=== PATIENT | female | born 1950 | race Caucasian/White ===

== ENCOUNTER 2017-12-13 06:22 | Day surgery (SDC) | payer MEDICARE ==
[2017-12-12 10:16] VITALS: BMI 46.7
[2017-12-13] MEDS ORDERED: Lidocaine 1% (PF) 30 ML VIAL ONE (06:48)
[2017-12-13 07:28] LABS: Anion Gap 13 mmol/L (10-20); BUN (Urea Nitrogen) 21 mg/dL (9.8-20.1); Calc. Creatinine Clearance 98 mL/min (70-130); Calcium 9.5 mg/dL (7.8-10.44); Carbon Dioxide 25 mmol/L (23-31); Cardiac Risk 5.6 (Less than 4.5); Chloride 104 mmol/L (98-107); Cholesterol 186 mg/dl (< 200 Desired); Estimated GFR-MDRD 50; Glucose 138 mg/dL (80-115); HDL Cholesterol 33 mg/dL (>60 Neg Risk); LDL Cholesterol, Calculated 101 mg/dL; Sodium 138 mmol/L (136-145); Triglycerides 258 mg/dL (Less than 150)
[2017-12-13 07:45] LABS: #Basophils 0.1 thou/uL (0.0-0.2); #Eosinphils 0.2 thou/uL (0.0-0.7); #Lymphocytes 2.4 thou/uL (1.20-3.40); #Monocytes 0.8 thou/uL (0.11-0.59); #Neutrophils 5.6 thou/uL (1.40-6.50); %Eosinophils 2.3 % (0.0-10.0); %Lymphocytes 26.9 % (21.0-51.0); %Monocytes 8.5 % (0.0-10.0); %Neutrophils 61.3 % (42.0-75.0); Hemoglobin 13.1 g/dL (12.0-16.0); Mean Corpuscular HGB CONC 31.8 g/dL (32.0-36.0); Mean Corpuscular Hemoglobin 31.3 pg (27.0-31.0); Mean Corpuscular Volume 98.5 fl (81.0-99.0); Mean Platelet Volume 7.8 fL (7.4-10.4); Platelet Count 186 thou/uL (130-400); RBC Distribution Width 13.8 % (11.5-14.5); Red Blood Cell (RBC) Count 4.19 mill/uL (4.20-5.40); White Blood Cell (WBC) Count 9.1 thou/uL (4.8-10.8)
[2017-12-13] MEDS ORDERED: Iopamidol 370 76% 100 ML VIAL ONE (07:45)
[2017-12-13 07:54] LABS: PTT 27.9 SEC (22.9-36.1); Prothrombin Time 13.1 SEC (12.0-14.7)
[2017-12-13] MEDS ORDERED: Nitroglycerin 100MG/250ML BOT 250 ML ONE (10:08)
[2017-12-13] MEDS ORDERED: Heparin 10,000 UNITS/1 ML VIAL ONE (10:08)
[2017-12-13] MEDS ORDERED: Verapamil 5 MG/2 ML VIAL ONE (10:08)
[2017-12-13] MEDS ORDERED: Fentanyl 250 MCG/5 ML VIAL ONE (10:13)
[2017-12-13] MEDS ORDERED: Midazolam HCl 2 mg/2 ml Vial ONE (10:13)
[2017-12-13] MEDS ORDERED: ALPRAZolam 0.25 MG TAB ONE (10:59)
[2017-12-13] MEDS ORDERED: Nitroglycerin 0.4 MG TAB (25 Tab Bottle) SL PRN (11:17)
[2017-12-13] MEDS ORDERED: traMADol HCl 50 MG TAB PO PRN (11:17)
[2017-12-13] MEDS ORDERED: Acetaminophen/Codeine 30-300mg Tablet PO PRN ×2 (11:17)
[2017-12-13] MEDS ORDERED: Sodium Chloride 0.9% 1,000 ML IV SCH (11:30)
== END 2017-12-13 15:28 | disposition home or self-care (01) ==
LOC: CCL 06:22
PROVIDERS: ATTEND Internal Medicine Cardiovascular Disease
PROC: 4A023N7 Measurement of Cardiac Sampling and Pressure, Left Heart, Percutaneous Approach (ICD-10-PCS; principal; 2017-12-13)
DX: I25.10 Atherosclerotic heart disease of native coronary artery without angina pectoris (principal); I42.0 Dilated cardiomyopathy; J44.9 Chronic obstructive pulmonary disease, unspecified; E11.9 Type 2 diabetes mellitus without complications; I10 Essential (primary) hypertension; N28.9 Disorder of kidney and ureter, unspecified; F41.9 Anxiety disorder, unspecified; E78.00 Pure hypercholesterolemia, unspecified; E66.9 Obesity, unspecified; Z68.42 Body mass index [BMI] 45.0-49.9, adult; Z88.0 Allergy status to penicillin; Z88.1 Allergy status to other antibiotic agents; Z88.8 Allergy status to other drugs, medicaments and biological substances; Z87.891 Personal history of nicotine dependence
CPT/HCPCS: 80048; 80061; 85025; 85610; 85730; 93005; 93458; C1769; 36415; 93010; 99152; 99153; J1644; J2001; J2250; J3010

== ENCOUNTER 2018-02-13 16:49 | Inpatient (IN) | payer MEDICARE ==
[~2018-02-13 16:49] MED LIST: ISOVUE-370 76%-LOCM 1 ML ONE
[2018-02-13 18:06] LABS: Troponin I Less than 0.010 ng/mL (< 0.028)
[2018-02-13 18:45] LABS: Base Excess-Venous 2.2 mmol/L (0 (+/- 2.5)); Bicarbonate (HCO3v) 28.9 mmol/L (1.0-85.0); Calcium, Ionized 1.21 mmol/L (1.12-1.32); Hemoglobin - Calc 12.6 g/dL (12.0-18.0); O2 Tension (PvO2) 51.8 mmHg (35.0-45.0); Potassium 3.8 mmol/L (3.4-4.7); T. Carbon Dioxide 30.5 mmol/L (1.0-85.0); pH (Venous) 7.344 (7.35-7.45); vO2 Saturation-calc 83.6 % (94-98)
--- NOTE | 2018-02-13 21:08 | CT ---
CT ANGIO OF CHEST PERFORMED WITH INTRAVENOUS CONTRAST ENHANCEMENT WITH 3D RECONSTRUCTIONS: 02/13/18 HISTORY: Shortness of breath. The initial images show suboptimal contrast bolus with a questionable area of embolus versus respirat ion involving the left lower lobe. For this reason, the patient was returned for repeat examination. There is subsegmental atelectatic changes in the lung bases. There is no signs of any pleural effusio ns or infiltrative process. There is no significant mediastinal or hilar adenopathy. The thoracic aor ta is normal in caliber. On the second sequence, there is good pulmonary artery opacification obtained and there is no CT evid ence for pulmonary embolus. The visualized liver parenchyma shows no focal findings. The gallbladder appears to have been removed . IMPRESSION: 1. Subsegmental atelectatic changes in the lung bases. 2. No CT evidence for pulmonary embolus. POS: YVAN
[2018-02-13 21:34] LABS: Troponin I Less than 0.010 ng/mL (< 0.028)
[2018-02-13] MEDS ORDERED: Acetaminophen 325 MG TAB PO PRN (22:25)
[2018-02-14 00:02] LABS: Troponin I Less than 0.010 ng/mL (< 0.028)
[2018-02-14] MEDS ORDERED: Senokot 8.6 MG TAB PO PRN (00:35)
[2018-02-14] MEDS ORDERED: Milk Of Magnesia 30 ML UDCUP PO PRN (00:35)
[2018-02-14] MEDS ORDERED: Calcium Carbonate 500 MG ChewTAB PO PRN (00:35)
[2018-02-14] MEDS ORDERED: Ondansetron ODT 4 MG TAB PO PRN (00:35)
[2018-02-14] MEDS ORDERED: Nitroglycerin 0.4 MG TAB (25 Tab Bottle) PO PRN (00:35)
[2018-02-14] MEDS ORDERED: Ondansetron HCl/PF 4 MG/2 ML Vial IVP PRN (00:35)
[2018-02-14] MEDS ORDERED: Potassium Chloride 20 MEQ TAB PO SCH (00:45)
--- NOTE | 2018-02-14 01:29 | HP ---
DATE OF ADMISSION: 02/13/2018 The patient was seen and examined on 02/13/2018. CHIEF COMPLAINT: Shortness of breath. The patient is a transfer from [facility]. HISTORY OF PRESENT ILLNESS: The patient is a 67-year-old female with COPD and chronic respiratory fa ilure, on home oxygen, presented to [facility] with shortness of breath. The patient wa s on her way to see Dr. Kapadia for a followup appointment. She underwent a cardiac catheterization i n December of this year that showed severe multivessel coronary artery disease. Medical therapy was rec ommended. The shortness of breath has been ongoing for the last 3 days. She also had some cough that was produ ctive of thick brownish phlegm. She also noticed some leg swelling. The shortness of breath was wor se on exertion and was associated with wheezing. No fever, chills, recent immobilization, travel, or sick contacts reported. In the emergency room, her initial vital signs showed temperature 98 with pulse rate of 91, blood pre ssure of 122/93 with O2 saturation 95% on 3 liter nasal cannula. Her chest x-ray was negative for in filtrate. CT angiogram of the chest was negative for pulmonary embolism. It showed some subsegmenta l atelectasis at the lung base. She received vancomycin, gentamicin, azithromycin, Solu-Medrol, and DuoNebs and was transferred to this facility for hospital admission. PAST MEDICAL HISTORY: 1. COPD. 2. Chronic respiratory failure on home oxygen. 3. Hypertension. 4. Diabetes mellitus type 2. 5. Severe coronary artery disease. 6. Anxiety and depression. 7. History of DVT in the past secondary to trauma and childbirth. 8. History of substance abuse in the past. 9. Infrarenal abdominal aortic aneurysm. 10. Hyperlipidemia. 11. Chronic kidney disease stage 3. PAST SURGICAL HISTORY: 1. Cardiac catheterization. 2. Bilateral tubal ligation. 3. Right breast lumpectomy. 4. Cholecystectomy. ALLERGIES: The patient is allergic to LEVAQUIN, CEFACLOR, TORADOL, and PENICILLIN. CURRENT HOME MEDICATIONS: The patient cannot recall all of her home medications. We will try to obt ain from the pharmacy or Dr. Little's office. SOCIAL HISTORY: The patient is a former smoker. She denies any alcohol or drug use. She lives [place]. She makes her own decision with the help of her family. FAMILY HISTORY: Positive for heart disease, hypertension, and diabetes in her siblings. REVIEW OF SYSTEMS: The following complete review of systems was negative, unless otherwise mentioned in the HPI or below: Constitutional: Weight loss or gain, ability to conduct usual activities. Sk in: Rash, itching. Eyes: Double vision, pain. ENT/Mouth: Nose bleeding, neck stiffness, pain, ten derness. Cardiovascular: Palpitations, dyspnea on exertion, orthopnea. Respiratory: Shortness of breath, wheezing, cough, hemoptysis, fever or night sweats. Gastrointestinal: Poor appetite, abdomi nal pain, heartburn, nausea, vomiting, constipation, or diarrhea. Genitourinary: Urgency, frequency , dysuria, nocturia. Musculoskeletal: Pain, swelling. Neurologic/Psychiatric: Anxiety, depression . Allergy/Immunologic: Skin rash, bleeding tendency. PHYSICAL EXAMINATION: VITAL SIGNS: As discussed above. GENERAL: A 67-year-old female in mild respiratory distress. Audible wheezing heard. HEENT: Head atraumatic, normocephalic. Sclerae are anicteric. Moist mucous membrane. No oral lesi on. NECK: Supple, no JVD appreciated. No carotid bruit. LUNGS: Showed scattered wheezing with diminished air entry at bases. There was scattered rhonchi. Lungs were symmetrical. There was some accessory muscle use. HEART: S1, S2 present. Regular rate and rhythm. No murmur, rubs, or gallops appreciated. ABDOMEN: Soft, obese, bowel sounds present. EXTREMITIES: 1 to 2+ edema in bilateral lower extremities. SKIN: Warm and dry. LYMPH NODES: No palpable lymph nodes in the neck. PERIPHERAL VASCULAR: Radial pulses palpable bilaterally. MUSCULOSKELETAL: No joint swelling or tenderness. LABORATORY FINDINGS: CBC showed WBC 11, hemoglobin 12.5. D-dimer was 1.17. VBG showed pH 7.34 with pCO2 of 53, pO2 of 51.8. Chemistries showed sodium 142, potassium 3.4, chloride 104, bicarbonate 26 , BUN 22, creatinine 1.14. Lactic acid was normal. LFTs in normal range. BNP was 76. Troponins we re negative. EKG by my review showed sinus rhythm with nonspecific ST-T wave changes. Chest x-ray a nd CT angiogram of the chest by my review as discussed above. IMPRESSION: 1. Acute hypoxic and hypercapnic respiratory failure secondary to chronic obstructive pulmonary dise ase exacerbation. Ejection fraction was normal and a cardiac catheterization in December of this year. A chest x-ray and CT angiogram of the chest does not show pulmonary vascular congestion. We will co ntinue oxygen, nebulizer treatment, empiric antibiotics with steroids. We will monitor closely. 2. Hypertension. We will resume her home medications once confirmed. 3. Anxiety and depression. We will resume home medications once confirmed. 4. Gastroesophageal reflux disease. We will continue Pepcid. 5. Hyperlipidemia. We will continue statins. 6. Diabetes mellitus type 2. We will start her on sliding scale. 7. Chronic kidney disease stage 3. We will avoid nephrotoxic agent. 8. Hypokalemia. We will replace. 9. Former smoker. 10. Severe coronary artery disease. Her troponins have been negative. 11. Infrarenal abdominal aortic aneurysm. Primary care physician advised to follow. 12. Plan of care was discussed with the patient in detail, she stated understanding. 13. Deep venous thrombosis prophylaxis with Lovenox.
[2018-02-14] MEDS: Azithromycin 500 MG in Sodium Chloride 0.9% 250 ML 250 ML IVPB SCH (02:19)
[2018-02-14 03:03] VITALS: BMI 46.7
[2018-02-14 05:02] LABS: Anion Gap 9 mmol/L (10-20); BUN (Urea Nitrogen) 22 mg/dL (9.8-20.1); Calc. Creatinine Clearance 99 mL/min (70-130); Calcium 9.3 mg/dL (7.8-10.44); Carbon Dioxide 27 mmol/L (23-31); Chloride 105 mmol/L (98-107); Estimated GFR-MDRD 51; Glucose 233 mg/dL (80-115); Potassium 4.1 mmol/L (3.5-5.1); Sodium 137 mmol/L (136-145)
[2018-02-14] MEDS: Mometasone/Formoterol 120 PUFF INHALER INH SCH ×2 (06:43→18:14)
--- NOTE | 2018-02-14 07:30 | PDOC.PN ---
- Subjective Encounter Start Date: 02/14/18 Encounter Start Time: 07:28 Subjective: GUTIERREZ gone, sob improved - Objective Resuscitation Status: Resuscitation Status FULL:Full Resuscitation MAR Reviewed: Yes Vital Signs & Weight: Vital Signs (12 hours) Temp Pulse Resp BP Pulse Ox 02/14/18 06:41 82 20 94 L 02/14/18 04:00 98.5 F 84 18 143/95 H 86 L 02/14/18 03:19 97.8 F 88 24 H 93 L 02/14/18 01:03 95 02/14/18 00:55 88 24 H 95 Result Diagrams: 02/14/18 04:15 Additional Labs: Accuchecks 02/14/18 06:00 POC Glucose 214 H Phys Exam - Physical Examination Neck: no JVD good BS with rhonchi, nonfocal Cardiovascular: RRR, no significant murmur Gastrointestinal: non-tender, positive bowel sounds Musculoskeletal: edema present Dx/Plan (1) COPD exacerbation Code(s): J44.1 - CHRONIC OBSTRUCTIVE PULMONARY DISEASE W (ACUTE) EXACERBATION Status: Acute (2) DM type 2 causing CKD stage 3 Code(s): E11.22 - TYPE 2 DIABETES MELLITUS W DIABETIC CHRONIC KIDNEY DISEASE; N18.3 - CHRONIC KIDNEY DISEASE, STAGE 3 (MODERATE) Status: Chronic Qualifiers: Diabetes mellitus adjunct english instructor insulin use: without adjunct english instructor use Qualified Code(s): E11.22 - Type 2 diabetes mellitus with diabetic chronic kidney disease ; N18.3 - Chronic kidney disease, stage 3 (moderate); N18.3 - Chronic kidney disease, stage 3 (moderate) (3) CAD (coronary artery disease) Code(s): I25.10 - ATHSCL HEART DISEASE OF [place] CORONARY ARTERY W/O ANG PCTRS Status: Chronic Qualifiers: Coronary Disease-Associated Artery/Lesion type: [place] artery [place] vs. transplanted heart: [place] heart Associated angina: without angina Qualified Code(s): I25.10 - Atherosclerotic heart disease of [place] coronary artery without angina pectoris (4) Acute on chronic respiratory failure with hypoxia Code(s): J96.21 - ACUTE AND CHRONIC RESPIRATORY FAILURE WITH HYPOXIA Status: Acute (5) Dyslipidemia Code(s): E78.5 - HYPERLIPIDEMIA, UNSPECIFIED Status: Chronic (6) Hypertension Code(s): I10 - ESSENTIAL (PRIMARY) HYPERTENSION Status: Chronic Qualifiers: Hypertension type: essential hypertension Qualified Code(s): I10 - Essential (primary) hypertension - Plan cont nebs Q4h and Q2h prn -: O2 to keep O2 sat > 90 -: cont iv medrol, antibx -: resume coreg, lisinopril, lasix , etc -: cont accu/ss * .
[2018-02-14] MEDS: DULoxetine 60 MG CAP PO SCH ×2 (08:22→20:12)
[2018-02-14] MEDS: Potassium Chloride 20 MEQ TAB PO SCH ×2 (08:23→18:26)
[2018-02-14] MEDS: Docusate 100 MG CAP PO SCH ×2 (08:23→20:12)
[2018-02-14] MEDS: Lisinopril 10 MG TAB PO SCH (08:23)
[2018-02-14] MEDS: Aspirin 81 mg Enteric Coated Tablet PO SCH (08:23)
[2018-02-14] MEDS: Famotidine 20 MG TAB PO SCH ×2 (08:23→20:07)
[2018-02-14] MEDS: Furosemide 40 MG TAB PO SCH ×2 (08:23→14:54)
[2018-02-14] MEDS: traMADol HCl 50 MG TAB PO SCH ×3 (08:24→21:07)
[2018-02-14] MEDS: Carvedilol 6.25 MG TAB PO SCH ×2 (08:24→20:08)
[2018-02-14] MEDS: Enoxaparin Sodium 40 MG/0.4 ML SYRINGE SC SCH (08:25)
[2018-02-14] MEDS ORDERED: Spiriva 18 MCG CAP (Box of 5 Caps) INH SCH (09:00)
[2018-02-14] MEDS ORDERED: Prevnar 13-Val Conj/PF 0.5 ML SYRINGE IM ONE (09:00)
[2018-02-14] MEDS ORDERED: Aspirin 81 mg Enteric Coated Tablet PO SCH (09:00)
[2018-02-14] MEDS: Atorvastatin Calcium 20 MG TAB PO SCH (20:12)
[2018-02-14] MEDS: Montelukast Sodium 10 mg Tablet PO SCH (20:12)
[2018-02-14] MEDS ORDERED: clonazePAM 0.5 MG TAB PO SCH (20:45)
[2018-02-14] MEDS ORDERED: Simvastatin 40 MG TAB PO SCH (21:00)
[2018-02-15] MEDS: Azithromycin 500 MG in Sodium Chloride 0.9% 250 ML 250 ML IVPB SCH (00:38)
[2018-02-15 05:05] LABS: #Lymphocytes 1.1 thou/uL (1.20-3.40); #Monocytes 0.4 thou/uL (0.11-0.59); #Neutrophils 9.7 thou/uL (1.40-6.50); %Basophils 0.2 % (0.0-1.0); %Lymphocytes 9.4 % (21.0-51.0); %Monocytes 3.6 % (0.0-10.0); %Neutrophils 86.7 % (42.0-75.0); Hemoglobin 11.1 g/dL (12.0-16.0); Mean Corpuscular Hemoglobin 32.6 pg (27.0-31.0); Mean Corpuscular Volume 98.7 fl (81.0-99.0); Mean Platelet Volume 7.6 fL (7.4-10.4); Platelet Count 231 thou/uL (130-400); RBC Distribution Width 11.7 % (11.5-14.5); Red Blood Cell (RBC) Count 3.42 mill/uL (4.20-5.40); White Blood Cell (WBC) Count 11.2 thou/uL (4.8-10.8)
[2018-02-15 05:24] LABS: Anion Gap 9 mmol/L (10-20); BUN (Urea Nitrogen) 24 mg/dL (9.8-20.1); Calc. Creatinine Clearance 100 mL/min (70-130); Calcium 9.3 mg/dL (7.8-10.44); Carbon Dioxide 33 mmol/L (23-31); Chloride 101 mmol/L (98-107); Estimated GFR-MDRD 52; Glucose 160 mg/dL (80-115); Potassium 4.4 mmol/L (3.5-5.1); Sodium 139 mmol/L (136-145)
[2018-02-15] MEDS: Mometasone/Formoterol 120 PUFF INHALER INH SCH (07:10)
[2018-02-15] MEDS: traMADol HCl 50 MG TAB PO SCH ×3 (08:27→22:05)
[2018-02-15] MEDS: Famotidine 20 MG TAB PO SCH ×2 (08:28→22:05)
[2018-02-15] MEDS: Lisinopril 10 MG TAB PO SCH (08:28)
[2018-02-15] MEDS: Docusate 100 MG CAP PO SCH ×2 (08:28→22:05)
[2018-02-15] MEDS: DULoxetine 60 MG CAP PO SCH ×2 (08:28→22:04)
[2018-02-15] MEDS: Carvedilol 6.25 MG TAB PO SCH ×2 (08:28→22:04)
[2018-02-15] MEDS: Furosemide 40 MG TAB PO SCH ×2 (08:28→15:08)
[2018-02-15] MEDS: Potassium Chloride 20 MEQ TAB PO SCH (08:29)
[2018-02-15] MEDS: Aspirin 81 mg Enteric Coated Tablet PO SCH (08:29)
[2018-02-15] MEDS: Enoxaparin Sodium 40 MG/0.4 ML SYRINGE SC SCH (08:29)
--- NOTE | 2018-02-15 12:41 | PDOC.PN ---
- Subjective Encounter Start Date: 02/15/18 Encounter Start Time: 12:39 Subjective: much less sob, mild cough, no fever - Objective Resuscitation Status: Resuscitation Status FULL:Full Resuscitation MAR Reviewed: Yes Vital Signs & Weight: Vital Signs (12 hours) Temp Pulse Resp BP BP Pulse Ox 02/15/18 12:00 97.7 F 67 18 155/90 H 98 02/15/18 09:40 89 22 H 94 L 02/15/18 08:59 97.4 F L 62 16 92 L 02/15/18 08:28 152/72 H 02/15/18 08:00 97.4 F L 62 16 152/72 H 92 L 02/15/18 07:58 97.4 F L 62 16 152/72 H 92 L 02/15/18 07:10 67 22 H 94 L 02/15/18 07:08 67 22 H 94 L 02/15/18 03:36 98.1 F 63 18 147/78 H 95 I&O: 02/14/18 02/15/18 02/16/18 06:59 06:59 06:59 Intake Total 240 2250 Output Total 900 400 Balance 240 1350 -400 Result Diagrams: 02/15/18 04:26 02/15/18 04:26 Additional Labs: Accuchecks 02/15/18 02/15/18 02/14/18 10:59 05:21 21:11 POC Glucose 206 H 161 H 203 H 02/14/18 17:03 POC Glucose 181 H Phys Exam - Physical Examination fair BS, few wheezes, rhonchi Cardiovascular: RRR, no significant murmur Gastrointestinal: soft, non-tender, positive bowel sounds Musculoskeletal: edema present Dx/Plan (1) COPD exacerbation Code(s): J44.1 - CHRONIC OBSTRUCTIVE PULMONARY DISEASE W (ACUTE) EXACERBATION Status: Acute (2) DM type 2 causing CKD stage 3 Code(s): E11.22 - TYPE 2 DIABETES MELLITUS W DIABETIC CHRONIC KIDNEY DISEASE; N18.3 - CHRONIC KIDNEY DISEASE, STAGE 3 (MODERATE) Status: Chronic Qualifiers: Diabetes mellitus watermelon harvesting supervisor insulin use: without watermelon harvesting supervisor use Qualified Code(s): E11.22 - Type 2 diabetes mellitus with diabetic chronic kidney disease ; N18.3 - Chronic kidney disease, stage 3 (moderate); N18.3 - Chronic kidney disease, stage 3 (moderate) (3) CAD (coronary artery disease) Code(s): I25.10 - ATHSCL HEART DISEASE OF [place] CORONARY ARTERY W/O ANG PCTRS Status: Chronic Qualifiers: Coronary Disease-Associated Artery/Lesion type: [place] artery [place] vs. transplanted heart: [place] heart Associated angina: without angina Qualified Code(s): I25.10 - Atherosclerotic heart disease of [place] coronary artery without angina pectoris (4) Acute on chronic respiratory failure with hypoxia Code(s): J96.21 - ACUTE AND CHRONIC RESPIRATORY FAILURE WITH HYPOXIA Status: Acute (5) Dyslipidemia Code(s): E78.5 - HYPERLIPIDEMIA, UNSPECIFIED Status: Chronic (6) Hypertension Code(s): I10 - ESSENTIAL (PRIMARY) HYPERTENSION Status: Chronic Qualifiers: Hypertension type: essential hypertension Qualified Code(s): I10 - Essential (primary) hypertension - Plan cont nebs, antibx -: taper solu-medrol to 20 q8h -: 1/2 blood C&S gm pos cocci- suspect contaminent * .
[2018-02-15] MEDS: Atorvastatin Calcium 20 MG TAB PO SCH (22:05)
[2018-02-15] MEDS: Montelukast Sodium 10 mg Tablet PO SCH (22:06)
[2018-02-16] MEDS: Azithromycin 500 MG in Sodium Chloride 0.9% 250 ML 250 ML IVPB SCH (01:09)
[2018-02-16 05:24] LABS: Anion Gap 11 mmol/L (10-20); BUN (Urea Nitrogen) 28 mg/dL (9.8-20.1); Calc. Creatinine Clearance 78 mL/min (70-130); Calcium 9.1 mg/dL (7.8-10.44); Carbon Dioxide 28 mmol/L (23-31); Chloride 102 mmol/L (98-107); Estimated GFR-MDRD 38; Glucose 161 mg/dL (80-115); Potassium 4.4 mmol/L (3.5-5.1); Sodium 137 mmol/L (136-145)
[2018-02-16 08:32] VITALS: BP 156/88; TEMP 98.9
[2018-02-16] MEDS: Famotidine 20 MG TAB PO SCH (08:34)
[2018-02-16] MEDS: Furosemide 40 MG TAB PO SCH (08:34)
[2018-02-16] MEDS: traMADol HCl 50 MG TAB PO SCH (08:34)
[2018-02-16] MEDS: Docusate 100 MG CAP PO SCH (08:35)
[2018-02-16] MEDS: Lisinopril 10 MG TAB PO SCH (08:35)
[2018-02-16] MEDS: Enoxaparin Sodium 40 MG/0.4 ML SYRINGE SC SCH (08:35)
[2018-02-16] MEDS: Aspirin 81 mg Enteric Coated Tablet PO SCH (08:35)
[2018-02-16] MEDS: DULoxetine 60 MG CAP PO SCH (08:35)
[2018-02-16] MEDS: Carvedilol 6.25 MG TAB PO SCH (08:35)
--- NOTE | 2018-02-16 09:00 | DIS ---
DATE OF ADMISSION: 02/13/2018 DATE OF DISCHARGE: 02/16/2018 PRIMARY CARE PROVIDER: Nancie Little D.O. DISCHARGE DISPOSITION: Home. FINAL DIAGNOSES: Acute exacerbation of chronic obstructive pulmonary disease, essential hypertension , acute on chronic respiratory failure with hypoxemia, chronic kidney disease stage 3, dyslipidemia, hypertension, coronary artery disease. DISCHARGE MEDICATIONS: New, Zithromax 10 mg p.o. daily x10 days, prednisone 20 mg p.o. t.i.d. until seen by primary care doctor, Flexeril 10 mg p.o. q.8 hours p.r.n., tramadol 50 mg p.o. t.i.d. p.r.n., Coreg 6.25 mg p.o. b.i.d., Cymbalta 60 mg b.i.d., aspirin 81 mg a day, Lisinopril 10 mg a day, DuoNe b 3 mL q.i.d., Lasix 40 mg a day as directed, Klonopin 0.5 mg b.i.d., Spiriva 18 mcg inhaled daily, Z ocor 40 mg a day. ALLERGIES: LEVAQUIN, CECLOR, KETOROLAC, PENICILLINS. CODE STATUS: FULL. PENDING AT THE TIME OF DISCHARGE: Nothing. HOSPITAL COURSE: The patient referred to [facility] for acute exacerbation of COPD. The patient on chronic respiratory failure on home O2. She went to the hospital with acute shortness of breath. Chest x-ray and CT scan were unremarkable. White count was mildly elevated at 11,000, h emoglobin 12.5. Chemistries were consistent with chronic kidney disease stage 3. She had wheezes. She was treated aggressively with IV steroids, nebs, IV antibiotics. She has improved dramatically. She is being discharged home on oral prednisone, oral Zithromax. Her blood sugars have been control led in the 100-200 range. Her final chemistry shows sodium 137, potassium 4.4, BUN 28, creatinine 1. 37. At the time of discharge, the patient's vital signs are excellent. Her chest is clear to physic al exam. Her heart has a regular rate and rhythm. We have discussed her status this morning, she is comfortable with going home. We have discussed follow up with Dr. Little late next week. Her pred nisone will need to be tapered by Dr. Little.
== END 2018-02-16 10:22 | disposition home or self-care (01) | DRG 189 ==
LOC: ERS 16:49 → 2SE 20:19
PROVIDERS: ADMIT Internal Medicine; ATTEND Internal Medicine
DX: J96.02 Acute respiratory failure with hypercapnia (principal); J44.1 Chronic obstructive pulmonary disease with (acute) exacerbation; Z68.42 Body mass index [BMI] 45.0-49.9, adult; E66.9 Obesity, unspecified; Z99.81 Dependence on supplemental oxygen; E11.22 Type 2 diabetes mellitus with diabetic chronic kidney disease; I12.9 Hypertensive chronic kidney disease with stage 1 through stage 4 chronic kidney disease, or unspecified chronic kidney disease; I25.10 Atherosclerotic heart disease of native coronary artery without angina pectoris; F32.9 Major depressive disorder, single episode, unspecified; F41.9 Anxiety disorder, unspecified; Z86.718 Personal history of other venous thrombosis and embolism; I71.4 Abdominal aortic aneurysm, without rupture; E78.5 Hyperlipidemia, unspecified; N18.3 Chronic kidney disease, stage 3 (moderate); Z88.1 Allergy status to other antibiotic agents; Z88.8 Allergy status to other drugs, medicaments and biological substances; Z88.0 Allergy status to penicillin; Z79.899 Other long term (current) drug therapy; Z87.891 Personal history of nicotine dependence; K21.9 Gastro-esophageal reflux disease without esophagitis; E87.6 Hypokalemia
CPT/HCPCS: 36415; 36416; 71275; 80048; 82330; 82803; 85025; 90471; 90670; 93005; 94640; 94760; 96360; 99406; G0009; J0456; J1650; J2920; J7050; J7620

== ENCOUNTER 2018-02-22 15:08 | Inpatient (IN) | payer MEDICARE ==
[2018-02-22 15:59] LABS: Actual Bicarbonate (HCO3a) 29.2 mEq/L (22-26); Base Excess (BEa) 4.2 mEq/L (0 (+/-) 2.5); CO2 Tension 45.3 mmHg (35.0-45.0); Hematocrit-ABG 41.5 % (36.0-47.0); O2 Tension (PaO2) 81.4 mmHg (80.0-100.0); pH, Arterial 7.43 (7.35-7.45)
[2018-02-22 16:00] LABS: ALV-art Gradient 88.535 (0-20); Calcium, Ionized 1.2 mmol/L (1.12-1.30); Puncture Site RR
[2018-02-22 16:08] LABS: #Lymphocytes 1.5 thou/uL (1.20-3.40); #Monocytes 0.4 thou/uL (0.11-0.59); %Basophils 0.2 % (0.0-1.0); %Eosinophils 0.1 % (0.0-10.0); %Lymphocytes 9.6 % (21.0-51.0); %Monocytes 2.2 % (0.0-10.0); %Neutrophils 87.9 % (42.0-75.0); Hemoglobin 13.6 g/dL (12.0-16.0); Mean Corpuscular HGB CONC 32.3 g/dL (32.0-36.0); Mean Corpuscular Hemoglobin 32.3 pg (27.0-31.0); Mean Platelet Volume 7.6 fL (7.4-10.4); Platelet Count 282 thou/uL (130-400); RBC Distribution Width 12.1 % (11.5-14.5); Red Blood Cell (RBC) Count 4.22 mill/uL (4.20-5.40)
[2018-02-22 16:14] LABS: INR-International Normal Ratio 1.1; PTT 25.6 SEC (22.9-36.1); Prothrombin Time 14.3 SEC (12.0-14.7)
[2018-02-22 16:16] LABS: D-Dimer Test 0.65 *mcg/mL (0.27-0.43)
[2018-02-22 16:30] LABS: ALT (SGPT) 16 U/L (8-55); AST (SGOT) 12 U/L (5-34); Albumin 3.7 g/dL (3.4-4.8); Alkaline Phosphatase 57 U/L (40-150); Anion Gap 15 mmol/L (10-20); BUN (Urea Nitrogen) 23 mg/dL (9.8-20.1); Bilirubin, Total 0.5 mg/dL (0.2-1.2); CK (CPK) 105 U/L (29-168); Calc. Creatinine Clearance 0 mL/min (70-130); Calcium 8.8 mg/dL (7.8-10.44); Carbon Dioxide 25 mmol/L (23-31); Chloride 102 mmol/L (98-107); Estimated GFR-MDRD 42; Globulin 2.5 g/dL (2.4-3.5); Glucose 244 mg/dL (80-115); Magnesium 2.2 mg/dL (1.6-2.6); Potassium 3.9 mmol/L (3.5-5.1); Protein, Total 6.2 g/dL (6.0-8.3); Sodium 138 mmol/L (136-145)
[2018-02-22 16:35] LABS: CKMB 2.6 ng/mL (0-6.6); Troponin I Less than 0.010 ng/mL (< 0.028)
--- NOTE | 2018-02-22 16:35 | RAD ---
SINGLE VIEW OF THE CHEST: 02/22/18 COMPARISON: 10/09/17 HISTORY: Shortness of breath and chest pain. FINDINGS: Single view of the chest shows an enlarged but stable cardiomediastinal silhouette. There is no evide nce of consolidation, mass or pleural effusion. The bones are unremarkable. IMPRESSION: Cardiomegaly without evidence of acute cardiopulmonary disease. POS: [facility]
--- NOTE | 2018-02-22 18:49 | CT ---
CT BRAIN: 02/22/18 HISTORY: Altered mental status. Noncontrast enhanced CT images of the brain is obtained. CT brain demonstrates an area of hypodensity in the left frontal lobe with some small areas of calcif ications. This is compatible with likely area of old stroke. No evidence of acute intracranial masses , hemorrhages, or strokes seen. IMPRESSION: Old left frontal lobe area of stroke. No acute intracranial abnormality seen. POS: YAVN
--- NOTE | 2018-02-22 19:18 | CT ---
CT ANGIO OF CHEST PERFORMED WITH INTRAVENOUS CONTRAST ENHANCEMENT WITH 3D RECONSTRUCTIONS: 02/22/18 HISTORY: Shortness of breath. COMPARISON: A 02/13/18 study. There is some linear interstitial change in the lung bases consistent with some atelectatic type wilson ge. No infiltrative process seen. There is evidence of some air trapping with a slightly mosaic lung pattern. Thoracic aorta is normal in caliber. There is fairly pulmonary artery opacification, peripheral emboli are not excluded, but no emboli are visualized. No significant mediastinal or hilar adenopathy. The visualized liver parenchyma is normal. Gallbladde r has been removed. IMPRESSION: No CT evidence for pulmonary embolus. POS: NIKI
[2018-02-22 19:38] LABS: Bilirubin Negative (Negative); Blood, Urine Negative (Negative); Clarity CLEAR (Clear); Glucose, Urine (Dipstick) Negative (Negative); Leukocyte Negative (Negative); Nitrite Negative (Negative); Protein, Urine (Dipstick) Negative (Neg-Trace); Specific Gravity, Urine 1.025 (1.002-1.036); Urobilinogen 0.2 mg/dL (0.2-1.0)
[2018-02-22 19:57] LABS: Lactic Acid 1.5 mmol/L (0.5-2.2)
[2018-02-22 21:31] LABS: Troponin I Less than 0.010 ng/mL (< 0.028)
[2018-02-22] MEDS ORDERED: Prevnar 13-Val Conj/PF 0.5 ML SYRINGE IM ONE (22:15)
[2018-02-22 22:32] VITALS: BMI 47.6
[2018-02-22] MEDS ORDERED: Ondansetron ODT 4 MG TAB SL PRN (22:40)
[2018-02-22] MEDS ORDERED: Ondansetron HCl/PF 4 MG/2 ML Vial IVP PRN (22:40)
[2018-02-23 00:33] LABS: Troponin I 0.017 ng/mL (< 0.028)
[2018-02-23] MEDS ORDERED: Ondansetron HCl/PF 4 MG/2 ML Vial IVP PRN (03:46)
[2018-02-23] MEDS ORDERED: HumaLOG 300 UNITS/3 ML VIAL SC PRN (03:46)
[2018-02-23] MEDS ORDERED: hydrALAZINE 20 MG/ML VIAL SLOW IVP PRN (03:46)
[2018-02-23] MEDS ORDERED: Dextrose 5% in Water 1,000 ML IV PRN (03:46)
[2018-02-23] MEDS ORDERED: Nitroglycerin 0.4 MG TAB (25 Tab Bottle) SL PRN (03:46)
[2018-02-23] MEDS ORDERED: Dextrose 50% Abboject 50 ML SYRINGE SLOW IVP PRN (03:46)
[2018-02-23] MEDS ORDERED: Ondansetron ODT 4 MG TAB PO PRN (03:46)
[2018-02-23] MEDS: Ipratropium Bromide 2.5 ml Neb NEB SCH ×3 (06:46→19:15)
--- NOTE | 2018-02-23 07:09 | HP ---
DATE OF ADMISSION: 02/23/2018 PRIMARY CARE PROVIDER: Dr. Nancie Little. CHIEF COMPLAINT: Shortness of breath and altered mental status. HISTORY OF PRESENT ILLNESS: This is a 67-year-old female who apparently was presenting to her primary care provider's office when she had difficulty with shortness of breath as well as diffic ulty with speech and coming up with the right phrases and sentences. The history is somewhat convolu priscila as patient is a poor historian and ER reports are disjointed. The history is obtained after revi ew of electronic medical records discussions with the ER attending as well as interviewing the patien t. The patient was apparently referred to [facility] after concern for possib le TIA or stroke-like symptoms with difficulty with speech and some confusion. The patient underwent CT imaging of the brain on 02/22/2018 showing old left frontal lobe area of infarct. The patient al so underwent CT angiogram of the chest showing no evidence for pulmonary embolus. The patient was no tably admitted to [facility] from 02/13/2018-02/16/2018 for exacerbation of chronic obstruct brent pulmonary disease. The patient received aggressive pulmonary supportive measures in addition to Zithromax 500 mg daily. The patient was discharged home on a regular oxygen supplementation and appa rently had been doing well. In the emergency room, patient underwent general evaluation including ch est imaging showing cardiomegaly without an acute process. The patient received aspirin 324 mg in ad dition to [place] 10 mg x1 dose and was referred to the stroke unit for evaluation. PAST MEDICAL HISTORY: 1. Acute on chronic hypoxemic respiratory failure. 2. Chronic obstructive pulmonary disease with chronic oxygen supplementation at 2-3 liters per minut e by nasal cannula. 3. Diabetes mellitus type 2. 4. Hypertension. 5. Question of congestive heart failure. PAST SURGICAL HISTORY: 1. Severe coronary artery disease, nonoperable. 2. Anxiety/depression. 3. History of DVT secondary to trauma. 4. History of substance abuse. 5. Infrarenal abdominal aortic aneurysm. 6. Hyperlipidemia. 7. Chronic kidney disease stage 3. PAST SURGICAL HISTORY: 1. Status post cardiac catheterization. 2. Status post bilateral tubal ligation. 3. Status post right breast lumpectomy. 4. Status post cholecystectomy. CURRENT MEDICATIONS: 1. Enteric coated aspirin 81 mg p.o. daily. 2. Zithromax 500 mg p.o. daily. 3. Coreg 6.25 mg p.o. b.i.d. 4. Klonopin 0.5 mg p.o. b.i.d. 5. Flexeril 10 mg p.o. t.i.d. p.r.n. 6. Cymbalta 60 mg p.o. b.i.d. 7. Pepcid 20 mg p.o. at bedtime. 8. Breo Ellipta 1 puff inhaled daily. 9. Guaifenesin 1200 mg p.o. q.12 hours. 10. Hydrochlorothiazide 25 mg p.o. daily. 11. DuoNebs 3 mL nebulized q.i.d. p.r.n. 12. Lisinopril 10 mg p.o. daily. 13. Claritin 10 mg p.o. daily. 14. Singulair 10 mg p.o. at bedtime. 15. Nitroglycerin 0.4 mg sublingually at bedtime. 16. Nitroglycerin 0.4 mg sublingually every 5 minutes p.r.n. 17. Prednisone 20 mg p.o. t.i.d. 18. Simvastatin 40 mg p.o. at bedtime. 19. Spiriva HandiHaler 18 mcg inhaled daily. 20. Tramadol 50 mg p.o. t.i.d. ALLERGIES: LEVAQUIN, CEFACLOR, KETOROLAC, PENICILLIN. FAMILY HISTORY: Positive for coronary artery disease, hypertension, and diabetes. SOCIAL HISTORY: The patient formerly used tobacco products, none currently. Lives independently. N o current alcohol, tobacco or illicit drug use. REVIEW OF SYSTEMS: Unobtainable as patient is a poor historian with altered mental status. PHYSICAL EXAMINATION: VITAL SIGNS: On admission, blood pressure 166/121, pulse 64, respiratory rate 18, temperature 97.8 d egrees Fahrenheit, O2 saturation 97% on 3 liters per minute by nasal cannula. GENERAL APPEARANCE: This is a 67-year-old female, lethargic, opens eyes and answers questi ons intermittently. HEENT: Pupils are equal, round, and reactive to light and accommodation. Extraocular muscles are in tact. No scleral icterus, no conjunctival injection. Nares patent. OP is clear. Teeth in poor rep air. NECK: Supple, no cervical adenopathy, no thyromegaly, no carotid bruits, no JVD appreciated. Cervic al spine with full active and passive range of motion. No meningeal signs appreciated. CHEST: Diminished breath sounds in the bases bilaterally. Occasional expiratory wheeze. CARDIOVASCULAR: S1 and S2 with distant heart sounds. No murmur, rub or gallop appreciated. ABDOMEN: Obese, soft, nontender and nondistended. Bowel sounds are positive in all four quadrants. No palpable mass. No rebound or guarding noted. EXTREMITIES: Warm and dry with fair turgor. No clubbing, cyanosis or asymmetric edema appreciated. Pulses palpable distally at the dorsalis pedis, posterior tibial, and popliteal arteries bilaterally . Capillary refill less than 2 seconds. NEUROLOGIC: Alert and oriented x1. Answers questions briefly. Rambling thoughts and speech. Moves all extremities. Not observed ambulatory during this exam. PERTINENT LABORATORY DATA AND X-RAY FINDINGS: Sodium 138, potassium 3.9, chloride 102, CO2 of 25, BU N 23, creatinine 1.28, estimated GFR 42, lactic acid level 2.7, calcium 8.8. LFTs within normal limi ts. BNP 154, TSH 0.12, free T4 0.79. Troponin I negative x1. CBC showed a white blood cell count o f 16, hemoglobin 13.6, hematocrit 42, MCV 100, platelet count 282 with 88% neutrophils. PT 14.3, INR 1.1, PTT 25.6. D-dimer 0.65. Portable chest x-ray dated 02/22/2018 showed cardiomegaly without an acute process. CT of the brain without contrast dated 02/22/2018 showed old left frontal lobe infarc t. No acute process identified. CT angiogram of the chest dated 02/22/[address] evidence fo r pulmonary embolus. EKG dated 02/22/2018 by my interpretation shows sinus mechanism with heart rate in the 80s. Normal R-wave progression noted in the precordial leads. Normal axis. No acute ST-T w ave changes appreciated. ASSESSMENT AND PLAN: 1. Transient ischemic attack. We will continue general stroke protocol. 2. Aspirin 81 mg p.o. daily and Lipitor 40 mg p.o. at bedtime. Check carotid Doppler study and 2D t ransthoracic echocardiogram. Check MRI of the brain to further define intracranial anatomy given CT evidence of left frontal infarct. 3. Acute metabolic encephalopathy. Appears multifactorial given patient's presentation. Continue s ymptomatic and supportive management. 5. Acute kidney injury on chronic kidney disease stage 3. Continue supportive measures. Avoid neph rotoxic agents and contrast media. Repeat creatinine in the a.m. 6. Chronic hypoxemic respiratory failure on chronic oxygen supplementation 2-3 liters per minute by nasal cannula. Continue general pulmonary supportive measures. The patient appears at baseline oxyg en requirement. 7. Diabetes mellitus type 2. Insulin sliding scale for reflexive coverage. ADA diet. 8. Prophylaxis. Sequential compression devices while in bed. Pepcid 20 mg p.o. b.i.d. Continue [facility] stroke protocol including speech, physical, and occupational therapy. 9. Code status is FULL. Surrogate medical decision maker is patient's daughter, Estelita Sood.
[2018-02-23] MEDS: predniSONE 20 MG TAB PO SCH ×2 (08:52→14:52)
[2018-02-23] MEDS: DULoxetine 60 MG CAP PO SCH ×2 (08:52→20:45)
[2018-02-23] MEDS: Aspirin 81 mg Enteric Coated Tablet PO SCH (08:52)
[2018-02-23] MEDS: Famotidine 20 MG TAB PO SCH ×2 (08:52→20:44)
[2018-02-23] MEDS: traMADol HCl 50 MG TAB PO SCH ×3 (08:52→20:45)
[2018-02-23] MEDS: Loratadine 10 MG TAB PO SCH (08:52)
[2018-02-23] MEDS: guaiFENesin ER 600 MG TAB PO SCH ×2 (08:52→20:45)
[2018-02-23] MEDS: Lisinopril 10 MG TAB PO SCH (08:53)
[2018-02-23] MEDS: Hydrochlorothiazide 25 MG TAB PO SCH (08:53)
[2018-02-23] MEDS ORDERED: Lorazepam 0.5 MG TAB PO SCH (09:00)
[2018-02-23] MEDS ORDERED: Carvedilol 6.25 MG TAB PO SCH ×2 (09:00→16:00)
[2018-02-23] MEDS ORDERED: clonazePAM 0.5 MG TAB PO SCH (09:00)
[2018-02-23] MEDS ORDERED: Azithromycin 250 MG TAB PO SCH (09:00)
[2018-02-23] MEDS ORDERED: Spiriva 18 MCG CAP (Box of 5 Caps) INH SCH (09:00)
[2018-02-23] MEDS: Folic Acid 1 MG TAB PO SCH (09:02)
[2018-02-23] MEDS: Cyanocobalamin (Vitamin B-12) 1,000 MCG TAB PO SCH (09:02)
[2018-02-23] MEDS: Multivit, Therapeutic 1 TAB PO SCH (09:02)
[2018-02-23] MEDS: Lactinex Tablet PO SCH (09:27)
--- NOTE | 2018-02-23 10:41 | ULT ---
BILATERAL CAROTID DUPLEX ULTRASOUND: Date: 02/23/18 HISTORY: TIA and altered mental status. FINDINGS: Real-time color Doppler evaluation of the right and left carotid systems was performed. This showed p laque formation at the origin of both internal carotid arteries. On the right side, peak systolic velocities of the common carotid were 43 cm/second. Internal carotid velocities were 52 cm/second and external carotid velocities were 45 cm/second. On the left side, peak systolic velocities of the common carotid were 46 cm/second. Internal carotid velocities were 45 cm/second and external carotid velocities were 70 cm/second. Vertebral flow was antegrade bilaterally. IMPRESSION: No evidence of hemodynamically significant stenosis of either internal carotid artery. POS: YVAN
[2018-02-23] MEDS: HumaLOG 300 UNITS/3 ML VIAL SC PRN (12:10)
--- NOTE | 2018-02-23 12:29 | MRI ---
MRI BRAIN NONCONTRAST: DATE: 02/23/18 HISTORY: 67-year-old female with altered mental status. COMPARISON: No prior brain MRIs. There is a CT of 02/22/18. FINDINGS: In the lateral aspect of the left frontal lobe, there is an approximately 3.5 x 2.5 x 3.5 cm region o f hyperintensity on T2 WI, FLAIR, and DWI. The ADC map suggests that certain portions of this could r epresent T2 shine-through, while it is uncertain whether or not there is actually restricted diffusio n. This corresponds to the low attenuation lesion on the CT. On the T1 WI, there is gyriform T1 short ening along the cortical surfaces of this lesion. However, the gradient echo sequence demonstrates ma gnetic susceptibility artifact associated with this, indicating that this represents petechial hemorr ronnell, rather than laminar necrosis. Furthermore, there does not appear to be significant focal atroph y in this region, and therefore this is probably not be an old infarction, as was thought on that CT report. Many centimeters posterior to this, there is a small, triangular strip of hyperintense signal on T2 W I and FLAIR in the left parietal lobe, involving cortex, subcortical white matter, and deep white mat ter (axial image 16 of 27, series 6). This is also mildly hyperintense on DWI, and again, it is uncer tain whether or not this represents T2 shine through or restricted diffusion. Ventricles are normal in size4 and configuration. There are diffuse mild chronic ischemic white matte r changes. No mass effect, midline shift, or extra-axial fluid collection. There are several tiny old lacunar infarctions in the bilateral cerebellar hemispheres, left more miguel n right. Flow-voids are grossly maintained in the major arteries of the [place]. IMPRESSION: 1. Approximately 3.5 cm intra-axial lesion in the lateral aspect of the left frontal lobe. Exact hanna ology is uncertain. One possibility is subacute infarction in the left middle cerebral artery territo ry complicated by mild petechial hemorrhage. The other possibilities include infection (cerebritis) a nd neoplasm. Recommend further evaluation with contrast enhanced MRI of brain. 2. Small left parietal intra-axial lesion. This is favored to represent a small, old infarction. 3. Multiple tiny old infarctions in the bilateral cerebellar hemispheres, left greater than right. CODE T. KANE R POS: [facility]
[2018-02-23] MEDS ORDERED: RENALLY ADJUST ABX IVPB PRN (12:36)
[2018-02-23] MEDS ORDERED: Vancomycin HCl 1 GM in Premix Bag 1 BAG IVPB SCH (12:45)
[2018-02-23] MEDS ORDERED: Senokot 8.6 MG TAB PO PRN (15:49)
[2018-02-23] MEDS: Calcium Carbonate + Vit D 1 TAB PO SCH (17:44)
--- NOTE | 2018-02-23 18:28 | CON ---
DATE OF CONSULTATION: 02/23/2018 This is a neurology consult note for history of slurred speech and difficulty getting the right words out. HISTORY OF PRESENT ILLNESS: The patient is a 67-year-old lady, who has multiple medical issues. She states she went to her primary care doctor because she was having trouble with her speech and coming up with the right phrases and sentences and she kept this to herself and her grandson and this occur red about 2 weeks ago. At this time, she reports her speech is okay and she has been referred here f or concern of possible TIA or stroke and she states that she does not remember what exactly happened yesterday. CT of the head shows old left frontal lobe infarct. Her CTA was reviewed and her CTA of the chest does not show any pulmonary embolism and at this time she is mainly here for her shortness of breath as well as this recent neurological event. She was recently admitted until 02/16/2018 for exacerbation of her COPD. She kept talking about her needing to have cardiac surgery, mainly coronar y artery bypass and she states none of her physicians agreed that she is a good surgical candidate an d she is still trying to work on that issue. PREVIOUS MEDICAL HISTORY: She has COPD, diabetes, hypertension, severe coronary artery disease which is deemed inoperable, anxiety and depression, prior history of DVTs, substance abuse, abdominal aort ic aneurysm, hyperlipidemia, and chronic kidney disease. PAST SURGICAL HISTORY: Bilateral tubal ligation, lumpectomy for breasts in the right side, status po st cholecystectomy, cardiac catheterization. MEDICATIONS: She takes multiple meds at home including clonazepam, aspirin, Coreg, Flexeril, Cymbalt a, Pepcid, hydrochlorothiazide, lisinopril, Claritin, Singulair, nitroglycerin, prednisone, simvastat in, Spiriva HandiHaler and home oxygen. ALLERGIES: She is allergic to LEVAQUIN, CEFACLOR, KETOROLAC, and PENICILLIN. FAMILY HISTORY: Positive for heart problems in her father, hypertension and diabetes. SOCIAL HISTORY: She used to smoke heavily and after recommendation from her bread dumper, she droppe d 2 vape inhalation with 6 mg total tobacco per day. She lives independently. She has family who he lps her. She does not drink alcohol. REVIEW OF SYSTEMS: It is difficult to rely on her review of systems with positive for coronary arter y disease. Pulmonary: Positive for shortness of breath. Neurologic: Positive for speech problems and no weakness. Gastrointestinal: Normal. Genitourinary: Normal. Endocrine: Positive for diabe elvia. Pulmonary: Positive for COPD and shortness of breath. Hematologic: Normal. Dermatologic: N ormal. LABORATORY DATA: Her most recent laboratory workup, white count 16.0, hemoglobin 13.6, hematocrit 42 .2, MCV 100.0, and platelets 282. Chemistry: Glucose 167, CK-MB 2.6 and her sodium 138, potassium 3 .9, chloride 102, bicarbonate 25, BUN 23, creatinine 1.28, glucose 244. Lactic acid 2.7. BNP 153.8. TSH 0.1184. D-dimer 0.65. PT 14.3, INR 1.1, PTT 225.6. Urine tox screen was not done. Her CT of the head did not show any acute infarct. She did have old left frontal lobe area of the stroke. He r MRI of the brain was performed today and on the MRI, she has 3.5 cm intraaxial lesion in the left a spect of the left frontal lobe. Etiology is uncertain. Possibilities include subacute infarction, t he left MCA territory complicated by mild petechial hemorrhage. Other possibilities include infectio n and neoplasm. Recommend further evaluation with contrast enhanced MRI of the brain, small left par ietal intraaxial lesion. PHYSICAL EXAMINATION: VITAL SIGNS: Blood pressure 140/90, temperature 98.4, pulse is 70 and respiratory rate 14. GENERAL: Obese lady appears to be somewhat confused with extensive medical history. CHEST: Clear vesicular breathing. CARDIOVASCULAR: S1, S2 heard, no murmurs. ABDOMEN: Soft, nontender, no organomegaly noted. NEUROLOGIC: Higher intellectual functions were normal. Cranial nerves II-XII normal with normal ext raocular movements. Normal fundus examination. Normal pupillary reaction 2 mm bilaterally and no fa cial asymmetry. Normal sensation of face bilaterally and her hearing is normal bilaterally. Normal elevation of palate and also tongue is midline. Motor examination: Bulk normal, tone normal, streng th is 5/5 throughout in upper and lower extremities. Muscle groups tested are deltoid, biceps, rashi ps, wrist extension/flexion, finger extension and flexion bilaterally. She seems to have mild weakne ss in the left iliopsoas muscle, which seems unusual to me, could be positioning of the body. Sensor y: Normal touch, pinprick, proprioception, vibration, and temperature bilaterally in upper extremiti es, decreased vibration in lower extremities mainly on the left side. CEREBELLAR: Normal [id number], mcpw-it-fals. IMPRESSION: The patient is a 67-year-old lady, who has multiple medical problems and history of diff iculties with speech problems and her examination is mainly essentially normal except for mild diffic ulties with her left lower extremity, otherwise rest of neurological examination is normal. MRI resu lts are as noted and looking at her CT, this is most likely her prior infarct, but one needs to get c larification on the comments made on the reading of MRI and this was a noncontrasted study, so I will go ahead and order MRI brain with contrast at this time and diagnosis is most likely transient ische daniel attack. RECOMMENDATIONS: 1. Repeat MRI of the brain with contrast to complete the study. 2. I will continue current antiplatelet agents and I will see her again tomorrow. Thank you for requesting consultation.
[2018-02-23] MEDS: Carvedilol 6.25 MG TAB PO SCH (20:45)
[2018-02-23] MEDS: Montelukast Sodium 10 mg Tablet PO SCH (20:45)
[2018-02-23] MEDS: Atorvastatin Calcium 40 MG TAB PO SCH (20:45)
[2018-02-23] MEDS: Docusate 100 MG CAP PO SCH (20:46)
[2018-02-24] MEDS: Ipratropium Bromide 2.5 ml Neb NEB SCH ×3 (00:59→11:50)
[2018-02-24 05:19] LABS: Anion Gap 6 mmol/L (10-20); BUN (Urea Nitrogen) 22 mg/dL (9.8-20.1); Calc. Creatinine Clearance 118 mL/min (70-130); Calcium 8.6 mg/dL (7.8-10.44); Carbon Dioxide 35 mmol/L (23-31); Cardiac Risk 3.1 (Less than 4.5); Chloride 100 mmol/L (98-107); Cholesterol 136 mg/dl (< 200 Desired); Estimated GFR-MDRD 61; Glucose 94 mg/dL (80-115); HDL Cholesterol 44 mg/dL (>60 Neg Risk); LDL Cholesterol, Calculated 77 mg/dL; Magnesium 2.2 mg/dL (1.6-2.6); Phosphorus 3.9 mg/dL (2.3-4.7); Potassium 3.7 mmol/L (3.5-5.1); Sodium 137 mmol/L (136-145); Triglycerides 74 mg/dL (Less than 150)
[2018-02-24 05:21] LABS: Hemoglobin 12.3 g/dL (12.0-16.0); Lymphocytes 12 % (21-51); MDiff Complete? YES; Macrocytosis SLIGHT = 6-15 cells (100X) (0-5/hpf); Mean Corpuscular HGB CONC 31.9 g/dL (32.0-36.0); Mean Corpuscular Hemoglobin 32.1 pg (27.0-31.0); Mean Platelet Volume 7.3 fL (7.4-10.4); Monocytes 6 % (0-10); Neutrophil 81 % (42-75); PLT Morphology Comment Appears Adequate; Platelet Count 234 thou/uL (130-400); RBC Distribution Width 11.9 % (11.5-14.5); Reactive Lymphocytes 1 % (0-10); Red Blood Cell (RBC) Count 3.82 mill/uL (4.20-5.40); White Blood Cell (WBC) Count 14.6 thou/uL (4.8-10.8)
[2018-02-24] MEDS: Acetaminophen 500 MG TAB PO PRN (06:27)
[2018-02-24] MEDS: Folic Acid 1 MG TAB PO SCH (08:01)
[2018-02-24] MEDS: Aspirin 81 mg Enteric Coated Tablet PO SCH (08:01)
[2018-02-24] MEDS: DULoxetine 60 MG CAP PO SCH ×2 (08:02→22:06)
[2018-02-24] MEDS: predniSONE 20 MG TAB PO SCH ×2 (08:02→16:17)
[2018-02-24] MEDS: Calcium Carbonate + Vit D 1 TAB PO SCH ×2 (08:02→16:17)
[2018-02-24] MEDS: Docusate 100 MG CAP PO SCH ×2 (08:02→22:05)
[2018-02-24] MEDS: guaiFENesin ER 600 MG TAB PO SCH ×2 (08:03→22:04)
[2018-02-24] MEDS: Lactinex Tablet PO SCH (08:03)
[2018-02-24] MEDS: Famotidine 20 MG TAB PO SCH ×2 (08:03→22:06)
[2018-02-24] MEDS: Cyanocobalamin (Vitamin B-12) 1,000 MCG TAB PO SCH (08:03)
[2018-02-24] MEDS: Lisinopril 10 MG TAB PO SCH (08:04)
[2018-02-24] MEDS: Multivit, Therapeutic 1 TAB PO SCH (08:04)
[2018-02-24] MEDS: Loratadine 10 MG TAB PO SCH (08:04)
[2018-02-24] MEDS: traMADol HCl 50 MG TAB PO SCH ×3 (08:04→22:05)
[2018-02-24] MEDS: Hydrochlorothiazide 25 MG TAB PO SCH (08:05)
[2018-02-24] MEDS: Carvedilol 6.25 MG TAB PO SCH ×2 (08:05→16:17)
[2018-02-24] MEDS ORDERED: Lorazepam 0.5 MG TAB PO SCH (09:00)
[2018-02-24] MEDS ORDERED: Cepastat Lozenges 1 LOZ PO PRN (11:56)
[2018-02-24] MEDS ORDERED: Doxycycline 100 MG CAP PO SCH (12:00)
--- NOTE | 2018-02-24 12:39 | PRG ---
DATE OF SERVICE: 02/24/2018 CHIEF COMPLAINT: Speech problems. INTERVAL HISTORY: Patient reports her speech is back to normal, even her chest feels a little less tight, but she feels overall very tired. Her last physical therapy was in October. She felt better while it lasted and then subsequently did not feel very well afterwards. LABORATORY DATA: Her current laboratory reports show white count 14.6, hemoglobin 12.3, hematocrit 38.4, platelet count 234. Patient's chemistries: Sodium 137, potassium 3.7, chloride 100, BUN 6, creatinine 22. Lipid profile is within normal limits and her MRI report is currently still pending. Echocardiogram report is also pending. PHYSICAL EXAMINATION: VITAL SIGNS: Blood pressure 152/109, temperature is 98, pulse 66. NEUROLOGIC: Patient is alert, oriented to time, place, person. She is on oxygen. Cranial nerves, normal extraocular movements. Strength is generally diminished due to decreased effort, but overall seems to have equal preservation of strength in both upper and lower extremities seem to be slightly weaker mainly the iliopsoas. IMPRESSION: Patient is a 67-year-old lady with abnormal MRI suspicion is whether this was a stroke versus lesion and her MRI with contrast has not been read yet. At this time, she seems to have general deconditioning, otherwise except for her left lower limb yesterday I did not find any abnormalities. Today, I examined her while she is sitting. She seems to have mild weakness of iliopsoas bilaterally which is mostly seen in patients who are not very mobile. RECOMMENDATIONS: If the MRI does not show any intracranial space occupying lesion other than a CVA, she can be discharged home from neuro stand point. When she is discharged, please make sure she has arrangements for physical therapy and Neurology followup with either Dr. Jain or Dr. Mckeon. LUCAS
--- NOTE | 2018-02-24 12:39 | MRI ---
MRI BRAIN WITH CONTRAST: Date: 02/24/18 Time: 1017 hours HISTORY: 67-year-old female with abnormality on noncontrast brain MRI, for which contrast enhanced MRI was rec ommended. TECHNIQUE: IV injection of 10 mL of MultiHance Gadolinium based contrast agent (half dose). Postcontrast T1-weig hted coronal, sagittal, and axial images. FINDINGS: The lesion in the lateral aspect of the left frontal lobe, described in detail on the 02/23/18 noncon trast MRI report, is again demonstrated. The T1 shortening is again demonstrated. The presence of T1 shortening makes it somewhat difficult to evaluate for enhancement, but there does appear to be at le ast small, patchy areas of enhancement involving some portions of this lesion, most notably at its me dial aspect (image 16 of 23, series 4; 19 of 27, series 2). No other areas of abnormal enhancement el sewhere in the brain. IMPRESSION: 1. Mild partial enhancement of the 3.5 cm intra-axial lesion in the lateral aspect of the left front al lobe. This is favored to represent a subacute infarction in the left middle cerebral artery territ ory complicated by petechial hemorrhage. The other possibilities of neoplasm and infection (cerebriti s) are less likely. 2. Recommend serial follow-up MRI's of the brain with and without contrast, beginning in 1 month (or earlier if patient's neurologic status changes before 1 month). POS: [facility]
[2018-02-24] MEDS: Benzonatate 100 MG CAP PO PRN (13:48)
--- NOTE | 2018-02-24 16:04 | PDOC.PN ---
- Subjective Encounter Start Date: 02/24/18 Patient seen and examined for CVA. No new complaints. No overnight events. No new focal deficits. No CP/SOB - Objective Resuscitation Status: Resuscitation Status FULL:Full Resuscitation MAR Reviewed: Yes Vital Signs & Weight: Vital Signs (12 hours) Temp Pulse Resp BP BP BP Pulse Ox 02/24/18 15:14 98.7 F 60 16 151/99 H 95 02/24/18 14:09 70 16 02/24/18 11:50 80 16 02/24/18 11:08 98.0 F 66 15 152/109 H 100 02/24/18 09:45 130/88 02/24/18 09:20 180/95 H 02/24/18 08:08 80 14 02/24/18 08:05 98.1 F 80 14 192/128 H 98 02/24/18 08:04 192/128 H 02/24/18 07:20 97.8 F 69 20 192/128 H 95 I&O: 02/23/18 02/24/18 02/25/18 06:59 06:59 06:59 Intake Total 480 960 Balance 480 960 Result Diagrams: 02/25/18 05:05 02/25/18 05:05 Additional Labs: Accuchecks 02/24/18 02/24/18 02/23/18 11:13 04:48 21:00 POC Glucose 103 96 232 H 02/23/18 16:11 POC Glucose 154 H Microbiology 02/22/18 15:55 Venous blood - Right Hand Blood Culture - Preliminary NO GROWTH AT 48 HOURS 02/22/18 15:55 Venous blood - Left Hand Blood Culture - Preliminary Coagulase Neg Staphylococcus Bacillus species,NOT anthracis Radiology Reviewed by me: Yes (MRI brain - Subacute CVA) EKG Reviewed by me: Yes (Tele SR) Phys Exam - Physical Examination Constitutional: NAD Respiratory: no rales Scat rales/rhonchi, No accessory muscle use Cardiovascular: RRR, no rub Gastrointestinal: soft, non-tender, positive bowel sounds Musculoskeletal: edema present Neurological: moves all 4 limbs No new focal findings Psychiatric: A&O x 3 Dx/Plan (1) CVA (cerebral vascular accident) Code(s): I63.9 - CEREBRAL INFARCTION, UNSPECIFIED Status: Acute Qualifiers: Precerebral and cerebral artery: middle cerebral artery Laterality of affected vessel: left Comment: subacute, Lovenox on hold due to petechial hemorrhage (2) Tachyarrhythmia Code(s): R00.0 - TACHYCARDIA, UNSPECIFIED Status: Acute (3) CAD (coronary artery disease) Code(s): I25.10 - ATHSCL HEART DISEASE OF [place] CORONARY ARTERY W/O ANG PCTRS Status: Chronic (4) Bacteremia Code(s): R78.81 - BACTEREMIA Status: Acute Comment: contaminant per d/w ID. (5) Chronic respiratory failure with hypoxia Code(s): J96.11 - CHRONIC RESPIRATORY FAILURE WITH HYPOXIA Status: Chronic (6) DM type 2 causing CKD stage 3 Code(s): E11.22 - TYPE 2 DIABETES MELLITUS W DIABETIC CHRONIC KIDNEY DISEASE; N18.3 - CHRONIC KIDNEY DISEASE, STAGE 3 (MODERATE) Status: Chronic (7) Morbid obesity with BMI of 40.0-44.9, adult Code(s): E66.01 - MORBID (SEVERE) OBESITY DUE TO EXCESS CALORIES; Z68.41 - BODY MASS INDEX (BMI) 40.0-44.9, ADULT Status: Chronic (8) Hypertension Code(s): I10 - ESSENTIAL (PRIMARY) HYPERTENSION Status: Chronic - Plan DVT proph w/SCDs Cont ASA - I confirmed with Dr Nayak -: Await Cardio input for tachyarrhythmias/severe CAD. Cont Coreg BID -: Cont sliding scale -: Taper Prednisone from last admission -: Cont to monitor, Change nebs to duonebs from Atrovent Review of Systems - Review of Systems Respiratory: Cough, Dry. negative: Shortness of Breath, Hemoptysis, SOB with Excertion, Pleuritic Pain, Sputum, Wheezing Cardiovascular: negative: chest pain, palpitations, orthopnea, paroxysmal nocturnal dyspnea, edema, light headedness, other Gastrointestinal: negative: Nausea, Vomiting, Abdominal Pain, Diarrhea, Constipation, Melena, Hematochezia, Other - Medications/Allergies Allergies/Adverse Reactions: Allergies Allergy/AdvReac Type Severity Reaction Status Date / Time levofloxacin [From Levaquin] Allergy Intermediate Hives Verified 12/12/17 10:16 cefaclor [From Ceclor] Allergy Verified 12/12/17 10:16 ketorolac tromethamine Allergy Verified 12/12/17 10:16 [From Toradol] Penicillins Allergy Hives Verified 12/12/17 10:16 Medications: Current Medications Acetaminophen (Tylenol) 1,000 mg PO Q6H PRN PRN Reason: Headache/Fever or Mild Pain Last Admin: 02/24/18 06:27 Dose: 1,000 mg Acidophilus (Floranex) 1 tab PO DAILY [facility] Last Admin: 02/24/18 08:03 Dose: 1 tab Albuterol/Ipratropium (Duoneb) 3 ml NEB [id number] [facility] Last Admin: 02/24/18 14:09 Dose: 3 ml Albuterol/Ipratropium (Duoneb) 3 ml NEB [id number] PRN PRN Reason: SOB &/or Wheezing Aspirin (Ecotrin) 81 mg PO DAILY [facility] Last Admin: 02/24/18 08:01 Dose: 81 mg Atorvastatin Calcium (Lipitor) 40 mg PO HS [facility] Last Admin: 02/23/18 20:45 Dose: 40 mg Benzonatate (Tessalon) 100 mg PO TID PRN PRN Reason: Cough Last Admin: 02/24/18 13:48 Dose: 100 mg Budesonide (Pulmicort Neb Solution) 0.5 mg INH BID-RT [facility] Calcium/Vitamin D (Caltrate 600 + Vit D) 1 tab PO BID-WM [facility] Last Admin: 02/24/18 08:02 Dose: 1 tab Carvedilol (Coreg) 6.25 mg PO BID-WM [facility] Clonazepam (Klonopin) 0.5 mg PO BID PRN PRN Reason: Anxiety Cyanocobalamin (Vitamin B-12) 1,000 mcg PO DAILY [facility] Last Admin: 02/24/18 08:03 Dose: 1,000 mcg Dextrose/Water (Dextrose 50%) 25 gm SLOW IVP PRN PRN PRN Reason: Hypoglycemia Diltiazem HCl (Cardizem) 30 mg PO Q6H PRN PRN Reason: HR >120 sustained Docusate Sodium (Colace) 100 mg PO BID [facility] Last Admin: 02/24/18 08:02 Dose: 100 mg Doxycycline Hyclate (Vibramycin) 100 mg PO BID [facility] Duloxetine HCl (Cymbalta) 60 mg PO BID [facility] Last Admin: 02/24/18 08:02 Dose: 60 mg Famotidine (Pepcid) 20 mg PO BID [facility] Last Admin: 02/24/18 08:03 Dose: 20 mg Folic Acid (Folvite) 1 mg PO DAILY [facility] Last Admin: 02/24/18 08:01 Dose: 1 mg Glucagon (Glucagon) 1 mg IM PRN PRN PRN Reason: Hypoglycemia Guaifenesin (Mucinex) 1,200 mg PO Q12HR [facility] Last Admin: 02/24/18 08:03 Dose: 1,200 mg Hydralazine HCl (Apresoline) 10 mg SLOW IVP Q4H PRN PRN Reason: BP > 220/110 Hydrochlorothiazide (Hydrochlorothiazide) 25 mg PO DAILY [facility] Last Admin: 02/24/18 08:05 Dose: 25 mg Dextrose/Water (D5w) 1,000 mls @ 0 mls/hr IV .Q0M PRN; As Directed PRN Reason: Hypoglycemia Insulin Human Lispro (Humalog) 0 units SC .MODERATE SLIDING SC PRN PRN Reason: Moderate Correctional Scale Last Admin: 02/23/18 12:10 Dose: 2 unit Insulin Human Lispro (Humalog) 0 units SC .BEDTIME SLIDING SC PRN PRN Reason: Bedtime Correctional Scale Last Admin: 02/23/18 22:33 Dose: 2 unit Lisinopril (Zestril) 10 mg PO DAILY [facility] Last Admin: 02/24/18 08:04 Dose: 10 mg Loratadine (Claritin) 10 mg PO DAILY [facility] Last Admin: 02/24/18 08:04 Dose: 10 mg Miscellaneous Medication (Pharmacy To Dose) 1 each IVPB PRN PRN PRN Reason: Pharmacy to dose Montelukast Sodium (Singulair) 10 mg PO QPM [facility] Last Admin: 02/23/18 20:45 Dose: 10 mg Multivitamins (Theragran) 1 tab PO DAILY [facility] Last Admin: 02/24/18 08:04 Dose: 1 tab Nitroglycerin (Nitrostat) 0.4 mg SL Q5MIN PRN PRN Reason: Chest Pain Ondansetron HCl (Zofran Odt) 4 mg PO Q6H PRN PRN Reason: Nausea/Vomiting Ondansetron HCl (Zofran) 4 mg IVP Q6H PRN PRN Reason: Nausea/Vomiting Prednisone (Prednisone) 20 mg PO BID-[facility] Last Admin: 02/24/18 08:02 Dose: 20 mg Senna (Senokot) 2 tab PO HSPRN PRN PRN Reason: Constipation Sodium Chloride (Flush - Normal Saline) 10 ml IVF PRN PRN PRN Reason: Saline Flush Throat Lozenges (Cepastat Lozenges) 1 esperanza PO Q2H PRN PRN Reason: Sore Throat Tramadol HCl (Ultram) 50 mg PO TID [facility] Last Admin: 02/24/18 13:48 Dose: 50 mg
[2018-02-24] MEDS: HumaLOG 300 UNITS/3 ML VIAL SC PRN (17:28)
[2018-02-24] MEDS: Budesonide 0.5 MG/2 ML NEB INH SCH (19:12)
[2018-02-24] MEDS: Doxycycline 100 MG CAP PO SCH (22:05)
[2018-02-24] MEDS: Montelukast Sodium 10 mg Tablet PO SCH (22:05)
[2018-02-24] MEDS: Atorvastatin Calcium 40 MG TAB PO SCH (22:06)
[2018-02-25] MEDS: clonazePAM 0.5 MG TAB PO PRN (02:05)
--- NOTE | 2018-02-25 03:30 | CON ---
DATE OF ADMISSION: 02/22/2018 DATE OF CONSULTATION: 02/24/2018 INDICATION FOR CONSULTATION: A 67-year-old female status post CVA with history of coronary artery di sease. HISTORY OF PRESENT ILLNESS: This is a very pleasant 67-year-old female who has had a history of torrie re three-vessel coronary artery disease who underwent cardiac catheterization by Dr. Kapadia on 2017 and was found to have ejection fraction approximately 50% with severe multivessel disease with o ccluded right coronary artery, which filled by collaterals. She had multiple severe LAD lesions in p roximal and mid vessel with some poststenotic dilatation and she had a large bifurcating obtuse bria nal branch, which filled also by collaterals. She had no significant gradient noted across the aorti c valve. She was seen in consultation and was felt not to be a surgical candidate due to her severe pulmonary problem. She continued to smoke and unfortunately at this time she still continues to use vapors, but has cut back and from what she says is not smoking cigarettes anymore. She came to the ospital after her family had noticed that she was not doing quite right and she has now been found to have a left middle cerebral artery infarct. Further evaluation showed the carotids have no stenosis and she has had no other significant abnormalities. She has been actually up walking to the floor. She has had some episodes of what appears to be multifocal atrial tachycardia or supraventricular ta chycardia for short episodes, but these have been relatively stable. She has chronic COPD and has hy poxemia, which is chronic in nature. Her O2 saturations; however, have been 96% while she has been h ere in the hospital and that was on 3 L. She denied any chest pain and otherwise from a cardiac amy dpoint appears to be doing relatively well. She does have hypertension and we may need to adjust med icines. PAST MEDICAL HISTORY: Significant for severe three-vessel coronary artery disease, COPD, type 2 diab etes, and hypertension. She has anxiety and depression. 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 She has a history of substance abuse in the past. She has abdominal aortic aneurysm, which is infrar enal. She has hyperlipidemia; however, this is under very good control at this time. She has chroni c kidney disease, stage 3. PAST SURGICAL HISTORY: She has had a tubal ligation, right breast lumpectomy, and a cholecystectomy. MEDICATIONS: Include enteric-coated aspirin, Coreg, Klonopin, Zithromax, Flexeril, Cymbalta, Pepcid, Breo Ellipta, guaifenesin, hydrochlorothiazide, DuoNebs, Claritin, lisinopril, Singulair, nitroglyce rin as needed, prednisone 20 mg t.i.d., simvastatin 40 mg, Spiriva handheld inhaler, and tramadol. ALLERGIES: She is allergic to PENICILLIN, LEVAQUIN, CEFACLOR, and KETOROLAC. FAMILY HISTORY: Positive for coronary artery disease, diabetes, and hypertension. SOCIAL HISTORY: She smoked in the past and used illicit drugs. She no longer uses those, but she di d for about 3 years. She has no significant alcohol or tobacco abuse at this time. REVIEW OF SYSTEMS: Please refer to the notes already dictated, but she had no new complaints on the review of systems except that she has been having some problem with finding words and the family had noticed that she was having obviously some incorrect word usage. Otherwise, she is able to ambulate. She still lives at home. PHYSICAL EXAMINATION: GENERAL: Reveals an elderly female who is in no acute distress at this time. She is alert, she is o riented and without complaints. VITAL SIGNS: Her blood pressure is 151/99. She is afebrile. Heart rate is 60 and is regular and re spiratory rate 16. HEENT: Shows the head to be normocephalic and atraumatic. Carotid pulses are present. I did not he ar any bruits. CHEST: Clear to auscultation. I cannot hear rales, rhonchi or wheezing. CARDIOVASCULAR: Reveals regular rate and rhythm. Normal S1, S2. Heart sounds are somewhat distant, but I do not hear any significant murmurs, heaves, thrills, bruits or rubs. ABDOMEN: Shows morbid obesity with positive bowel sounds. EXTREMITIES: Showed no clubbing, cyanosis or edema. Pedal pulses are present, but somewhat difficul t to palpate. NEUROLOGIC: The patient is somewhat slow to answer the questions at times, but otherwise did not charla cit any gross focal motor deficits at this time. LABORATORY DATA AND IMAGING: Negative for any elevation of cardiac enzymes. Her LDL is 77. Her hem oglobin is 12.3, creatinine is 0.92, potassium is 3.7. Chest x-ray shows cardiomegaly, but no acute changes. CT angiogram shows no evidence of pulmonary emboli. Carotid study was unremarkable. EKG s hows a normal sinus rhythm with T-wave changes, which are nonspecific. Echocardiogram previously yajaira wed ejection fraction of 50% to 55% with [id number] aortic valve regurgitation, mild tricuspid and mitral valve regurgitation. IMPRESSION: 1. Elderly female who has suffered a left middle cerebral artery infarct per which she remained stab le. 2. History of severe coronary artery disease, which is felt to be inoperable due to her pulmonary pr oblems. 3. Chronic obstructive pulmonary disease, which will be dealt by the primary care service and the lmonologist. 4. History of substance abuse. She appears to be just using vapors at this time. 5. Hypertension, which is under good control. 6. Hyperlipidemia. This is also under very good control at this time. 7. Chronic kidney disease, which also appears to be very stable at this time with a creatinine 0.92. Further care of the patient will be by Dr. Kapadia when he visits with the patient tomorrow.
[2018-02-25] MEDS ORDERED: Calcium Carbonate 500 MG ChewTAB PO SCH (03:45)
[2018-02-25 05:33] LABS: #Lymphocytes 2.7 thou/uL (1.20-3.40); #Monocytes 1.2 thou/uL (0.11-0.59); #Neutrophils 12.6 thou/uL (1.40-6.50); %Basophils 0.1 % (0.0-1.0); %Eosinophils 0.3 % (0.0-10.0); %Lymphocytes 16.4 % (21.0-51.0); %Monocytes 7.1 % (0.0-10.0); %Neutrophils 76.1 % (42.0-75.0); Hemoglobin 13.6 g/dL (12.0-16.0); Mean Corpuscular HGB CONC 32.6 g/dL (32.0-36.0); Mean Corpuscular Hemoglobin 33.1 pg (27.0-31.0); Mean Platelet Volume 7.7 fL (7.4-10.4); Platelet Count 249 thou/uL (130-400); RBC Distribution Width 11.9 % (11.5-14.5); White Blood Cell (WBC) Count 16.6 thou/uL (4.8-10.8)
[2018-02-25 05:35] LABS: BUN (Urea Nitrogen) 22 mg/dL (9.8-20.1); Calc. Creatinine Clearance 106 mL/min (70-130); Calcium 9.5 mg/dL (7.8-10.44); Estimated GFR-MDRD 54; Glucose 93 mg/dL (80-115)
[2018-02-25 05:44] LABS: Anion Gap 11 mmol/L (10-20); Carbon Dioxide 34 mmol/L (23-31); Chloride 96 mmol/L (98-107); Potassium 4.4 mmol/L (3.5-5.1); Sodium 137 mmol/L (136-145)
[2018-02-25] MEDS: Budesonide 0.5 MG/2 ML NEB INH SCH ×2 (07:04→19:13)
[2018-02-25] MEDS: Doxycycline 100 MG CAP PO SCH ×2 (08:25→20:57)
[2018-02-25] MEDS: Cyanocobalamin (Vitamin B-12) 1,000 MCG TAB PO SCH (08:25)
[2018-02-25] MEDS: Benzonatate 100 MG CAP PO PRN (08:26)
[2018-02-25] MEDS: Folic Acid 1 MG TAB PO SCH (08:26)
[2018-02-25] MEDS: predniSONE 20 MG TAB PO SCH ×2 (08:26→18:48)
[2018-02-25] MEDS: guaiFENesin ER 600 MG TAB PO SCH ×2 (08:26→20:56)
[2018-02-25] MEDS: Famotidine 20 MG TAB PO SCH ×2 (08:26→21:00)
[2018-02-25] MEDS: Aspirin 81 mg Enteric Coated Tablet PO SCH (08:26)
[2018-02-25] MEDS: Docusate 100 MG CAP PO SCH ×2 (08:26→20:58)
[2018-02-25] MEDS: traMADol HCl 50 MG TAB PO SCH ×3 (08:26→20:58)
[2018-02-25] MEDS: DULoxetine 60 MG CAP PO SCH ×2 (08:26→21:00)
[2018-02-25] MEDS: Hydrochlorothiazide 25 MG TAB PO SCH (08:26)
[2018-02-25] MEDS: Calcium Carbonate + Vit D 1 TAB PO SCH ×2 (08:27→18:48)
[2018-02-25] MEDS: Multivit, Therapeutic 1 TAB PO SCH (08:27)
[2018-02-25] MEDS: Carvedilol 6.25 MG TAB PO SCH ×2 (08:27→18:48)
[2018-02-25] MEDS: Lisinopril 10 MG TAB PO SCH (08:27)
[2018-02-25] MEDS: Loratadine 10 MG TAB PO SCH (08:28)
[2018-02-25] MEDS: Lactinex Tablet PO SCH (09:52)
[2018-02-25] MEDS: HumaLOG 300 UNITS/3 ML VIAL SC PRN (18:49)
[2018-02-25] MEDS: Atorvastatin Calcium 40 MG TAB PO SCH (20:56)
[2018-02-25] MEDS: Montelukast Sodium 10 mg Tablet PO SCH (21:01)
--- NOTE | 2018-02-25 22:09 | PDOC.CTH ---
Cardiology Progress Note - Subjective No new issues. No new arrhythmias seen on monitor. Continues to have small runs of non sustained SVT. - Objective Vital Signs Temp Pulse Pulse Pulse Resp BP BP 02/25/18 20:00 98.1 F 67 18 02/25/18 19:14 71 18 02/25/18 19:13 71 18 02/25/18 18:48 135/104 H 02/25/18 15:42 98.2 F 79 20 02/25/18 15:20 78 16 02/25/18 11:26 97.6 F 67 20 02/25/18 11:08 67 67 166/97 H 02/25/18 10:43 74 16 BP BP Pulse Ox Pulse Ox 02/25/18 20:00 150/91 H 99 02/25/18 19:14 94 L 02/25/18 19:13 94 L 02/25/18 18:48 02/25/18 15:42 135/104 H 98 02/25/18 15:20 02/25/18 11:26 146/95 H 97 02/25/18 11:08 146/95 H 97 02/25/18 10:43 94 L 02/24/18 02/25/18 02/26/18 06:59 06:59 06:59 Intake Total 960 960 Balance 960 960 - Physical Examination General/Neuro: alert & oriented x3, NAD Neck: no JVD present Lungs: unlabored respirations, other: (reduced breath sounds.) Heart: RRR Abdomen: NT/ND Extremities: + edema B (1+) - Telemetry Telemetry Rhythm: NSR, SVT - Labs Result Diagrams: 02/25/18 05:05 02/25/18 05:05 Troponin/CKMB CK-MB (CK-2) 2.6 ng/mL (0-6.6) 02/22/18 15:56 Troponin I 0.017 ng/mL (< 0.028) 02/22/18 23:52 - Assessment/Plan 1. Acute Middle cerebral artery CVA. 2. Small petechial hemorrhagic conversion of ischemic CVA. 3. SVT, non sustained. 4. Severe multivessel CAD. 5. Severe COPD. PLAN: - Will need a LINQ placed to monitor for Afib/flutter. Will plan on placing this tomorrow. - Continue other meds. - Would hold all antiplatelets for now.
--- NOTE | 2018-02-25 22:50 | PDOC.PN ---
- Subjective Encounter Start Date: 02/25/18 Encounter Start Time: 12:00 Patient seen and examined for CVA. No new focal deficits. No new complaints. No overnight events - Objective Resuscitation Status: Resuscitation Status FULL:Full Resuscitation MAR Reviewed: Yes Vital Signs & Weight: Vital Signs (12 hours) Temp Pulse Pulse Pulse Resp BP BP 02/25/18 20:00 98.1 F 67 18 02/25/18 19:14 71 18 02/25/18 19:13 71 18 02/25/18 18:48 135/104 H 02/25/18 15:42 98.2 F 79 20 02/25/18 15:20 78 16 02/25/18 11:26 97.6 F 67 20 02/25/18 11:08 67 67 166/97 H BP BP Pulse Ox Pulse Ox 02/25/18 20:00 150/91 H 99 02/25/18 19:14 94 L 02/25/18 19:13 94 L 02/25/18 18:48 02/25/18 15:42 135/104 H 98 02/25/18 15:20 02/25/18 11:26 146/95 H 97 02/25/18 11:08 146/95 H 97 I&O: 02/24/18 02/25/18 02/26/18 06:59 06:59 06:59 Intake Total 960 960 Balance 960 960 Result Diagrams: 02/25/18 05:05 02/25/18 05:05 Additional Labs: Accuchecks 02/25/18 02/25/18 02/25/18 17:11 10:51 05:55 POC Glucose 173 H 149 H 91 Phys Exam - Physical Examination Constitutional: NAD Respiratory: no wheezing, no rhonchi Cardiovascular: RRR, no rub Gastrointestinal: soft, non-tender, positive bowel sounds Musculoskeletal: no edema Neurological: moves all 4 limbs Dx/Plan (1) CVA (cerebral vascular accident) Code(s): I63.9 - CEREBRAL INFARCTION, UNSPECIFIED Status: Acute Qualifiers: Precerebral and cerebral artery: middle cerebral artery Laterality of affected vessel: left Comment: subacute, Lovenox on hold due to petechial hemorrhage. Dr Nayak recommended to continue ASA 81 mg daily (2) Tachyarrhythmia Code(s): R00.0 - TACHYCARDIA, UNSPECIFIED Status: Acute Comment: Cardiology following (3) CAD (coronary artery disease) Code(s): I25.10 - ATHSCL HEART DISEASE OF [place] CORONARY ARTERY W/O ANG PCTRS Status: Chronic (4) Bacteremia Code(s): R78.81 - BACTEREMIA Status: Acute Comment: contaminant per d/w ID. (5) Chronic respiratory failure with hypoxia Code(s): J96.11 - CHRONIC RESPIRATORY FAILURE WITH HYPOXIA Status: Chronic Comment: Recent hospitalization. On Taper Prednisone (6) DM type 2 causing CKD stage 3 Code(s): E11.22 - TYPE 2 DIABETES MELLITUS W DIABETIC CHRONIC KIDNEY DISEASE; N18.3 - CHRONIC KIDNEY DISEASE, STAGE 3 (MODERATE) Status: Chronic Comment: on sliding scale (7) Morbid obesity with BMI of 40.0-44.9, adult Code(s): E66.01 - MORBID (SEVERE) OBESITY DUE TO EXCESS CALORIES; Z68.41 - BODY MASS INDEX (BMI) 40.0-44.9, ADULT Status: Chronic (8) Hypertension Code(s): I10 - ESSENTIAL (PRIMARY) HYPERTENSION Status: Chronic - Plan DVT proph w/SCDs Cont low dose ASA -: Cont to taper Prednisone from last admission -: Cont Doxycycline for 1-2 more days for COPD exacerbation - improving -: Cont current meds as below Review of Systems - Review of Systems Respiratory: negative: Cough, Dry, Shortness of Breath, Hemoptysis, SOB with Excertion, Pleuritic Pain, Sputum, Wheezing Cardiovascular: negative: chest pain, palpitations, orthopnea, paroxysmal nocturnal dyspnea, edema, light headedness, other Gastrointestinal: negative: Nausea, Vomiting, Abdominal Pain, Diarrhea, Constipation, Melena, Hematochezia, Other - Medications/Allergies Allergies/Adverse Reactions: Allergies Allergy/AdvReac Type Severity Reaction Status Date / Time levofloxacin [From Levaquin] Allergy Intermediate Hives Verified 12/12/17 10:16 cefaclor [From Ceclor] Allergy Verified 12/12/17 10:16 ketorolac tromethamine Allergy Verified 12/12/17 10:16 [From Toradol] Penicillins Allergy Hives Verified 12/12/17 10:16 Medications: Current Medications Acetaminophen (Tylenol) 1,000 mg PO Q6H PRN PRN Reason: Headache/Fever or Mild Pain Last Admin: 02/24/18 06:27 Dose: 1,000 mg Acidophilus (Floranex) 1 tab PO DAILY [facility] Last Admin: 02/25/18 09:52 Dose: 1 tab Albuterol/Ipratropium (Duoneb) 3 ml NEB [id number] [facility] Last Admin: 02/25/18 19:14 Dose: 3 ml Albuterol/Ipratropium (Duoneb) 3 ml NEB [id number] PRN PRN Reason: SOB &/or Wheezing Atorvastatin Calcium (Lipitor) 40 mg PO HS [facility] Last Admin: 02/25/18 20:56 Dose: 40 mg Benzonatate (Tessalon) 100 mg PO TID PRN PRN Reason: Cough Last Admin: 02/25/18 08:26 Dose: 100 mg Budesonide (Pulmicort Neb Solution) 0.5 mg INH BID-RT [facility] Last Admin: 02/25/18 19:13 Dose: 0.5 mg Calcium/Vitamin D (Caltrate 600 + Vit D) 1 tab PO BID-[facility] Last Admin: 02/25/18 18:48 Dose: 1 tab Carvedilol (Coreg) 6.25 mg PO BID-[facility] Last Admin: 02/25/18 18:48 Dose: 6.25 mg Clonazepam (Klonopin) 0.5 mg PO BID PRN PRN Reason: Anxiety Last Admin: 02/25/18 02:05 Dose: 0.5 mg Cyanocobalamin (Vitamin B-12) 1,000 mcg PO DAILY [facility] Last Admin: 02/25/18 08:25 Dose: 1,000 mcg Dextrose/Water (Dextrose 50%) 25 gm SLOW IVP PRN PRN PRN Reason: Hypoglycemia Diltiazem HCl (Cardizem) 30 mg PO Q6H PRN PRN Reason: HR >120 sustained Docusate Sodium (Colace) 100 mg PO BID [facility] Last Admin: 02/25/18 20:58 Dose: 100 mg Doxycycline Hyclate (Vibramycin) 100 mg PO BID [facility] Last Admin: 02/25/18 20:57 Dose: 100 mg Duloxetine HCl (Cymbalta) 60 mg PO BID [facility] Last Admin: 02/25/18 21:00 Dose: 60 mg Famotidine (Pepcid) 20 mg PO BID [facility] Last Admin: 02/25/18 21:00 Dose: 20 mg Folic Acid (Folvite) 1 mg PO DAILY [facility] Last Admin: 02/25/18 08:26 Dose: 1 mg Glucagon (Glucagon) 1 mg IM PRN PRN PRN Reason: Hypoglycemia Guaifenesin (Mucinex) 1,200 mg PO Q12HR [facility] Last Admin: 02/25/18 20:56 Dose: 1,200 mg Hydralazine HCl (Apresoline) 10 mg SLOW IVP Q4H PRN PRN Reason: BP > 220/110 Hydrochlorothiazide (Hydrochlorothiazide) 25 mg PO DAILY [facility] Last Admin: 02/25/18 08:26 Dose: 25 mg Dextrose/Water (D5w) 1,000 mls @ 0 mls/hr IV .Q0M PRN; As Directed PRN Reason: Hypoglycemia Insulin Human Lispro (Humalog) 0 units SC .MODERATE SLIDING SC PRN PRN Reason: Moderate Correctional Scale Last Admin: 02/25/18 18:49 Dose: 2 unit Insulin Human Lispro (Humalog) 0 units SC .BEDTIME SLIDING SC PRN PRN Reason: Bedtime Correctional Scale Last Admin: 02/23/18 22:33 Dose: 2 unit Lisinopril (Zestril) 10 mg PO DAILY [facility] Last Admin: 02/25/18 08:27 Dose: 10 mg Loratadine (Claritin) 10 mg PO DAILY [facility] Last Admin: 02/25/18 08:28 Dose: 10 mg Montelukast Sodium (Singulair) 10 mg PO QPM [facility] Last Admin: 02/25/18 21:01 Dose: 10 mg Multivitamins (Theragran) 1 tab PO DAILY [facility] Last Admin: 02/25/18 08:27 Dose: 1 tab Nitroglycerin (Nitrostat) 0.4 mg SL Q5MIN PRN PRN Reason: Chest Pain Ondansetron HCl (Zofran Odt) 4 mg PO Q6H PRN PRN Reason: Nausea/Vomiting Last Admin: 02/25/18 02:05 Dose: 4 mg Ondansetron HCl (Zofran) 4 mg IVP Q6H PRN PRN Reason: Nausea/Vomiting Prednisone (Prednisone) 20 mg PO BID-[facility] Last Admin: 02/25/18 18:48 Dose: 20 mg Senna (Senokot) 2 tab PO HSPRN PRN PRN Reason: Constipation Sodium Chloride (Flush - Normal Saline) 10 ml IVF PRN PRN PRN Reason: Saline Flush Last Admin: 02/25/18 21:02 Dose: 10 ml Throat Lozenges (Cepastat Lozenges) 1 esperanza PO Q2H PRN PRN Reason: Sore Throat Tramadol HCl (Ultram) 50 mg PO TID [facility] Last Admin: 02/25/18 20:58 Dose: 50 mg
[2018-02-26] MEDS: clonazePAM 0.5 MG TAB PO PRN (02:12)
[2018-02-26] MEDS: Carvedilol 6.25 MG TAB PO SCH ×2 (05:23→16:08)
[2018-02-26] MEDS: Budesonide 0.5 MG/2 ML NEB INH SCH (06:52)
[2018-02-26] MEDS ORDERED: Lidocaine 1% w/Epinephrine 1:200K 30 ML VIAL ONE (07:42)
[2018-02-26] MEDS: Hydrochlorothiazide 25 MG TAB PO SCH (09:23)
[2018-02-26] MEDS: Calcium Carbonate + Vit D 1 TAB PO SCH ×2 (09:23→16:08)
[2018-02-26] MEDS: Multivit, Therapeutic 1 TAB PO SCH (09:23)
[2018-02-26] MEDS: Docusate 100 MG CAP PO SCH (09:23)
[2018-02-26] MEDS: Loratadine 10 MG TAB PO SCH (09:23)
[2018-02-26] MEDS: DULoxetine 60 MG CAP PO SCH (09:23)
[2018-02-26] MEDS: Lactinex Tablet PO SCH (09:23)
[2018-02-26] MEDS: Lisinopril 10 MG TAB PO SCH (09:23)
[2018-02-26] MEDS: guaiFENesin ER 600 MG TAB PO SCH (09:23)
[2018-02-26] MEDS: Doxycycline 100 MG CAP PO SCH (09:23)
[2018-02-26] MEDS: Folic Acid 1 MG TAB PO SCH (09:24)
[2018-02-26] MEDS: traMADol HCl 50 MG TAB PO SCH ×2 (09:24→15:12)
[2018-02-26] MEDS: Famotidine 20 MG TAB PO SCH (09:24)
[2018-02-26] MEDS: Cyanocobalamin (Vitamin B-12) 1,000 MCG TAB PO SCH (09:24)
[2018-02-26] MEDS: predniSONE 20 MG TAB PO SCH ×2 (09:24→16:08)
[2018-02-26] MEDS: Acetaminophen 500 MG TAB PO PRN (13:11)
--- NOTE | 2018-02-26 13:53 | CCL ---
CARDIOLOGY PROCEDURE NOTE: Date: 02/26/18 PROCEDURE PERFORMED: Insertion of permanent gambling monitor, model MDP LINQ 11. INDICATION: Cryptogenic CVA. COMPLICATIONS: None. DESCRIPTION OF PROCEDURE: The patient was taken to the cardiac catheterization procedural area, and prepped and draped in the usual sterile fashion. Lidocaine was utilized for local anesthesia. An incision was made at the fourt h intercostal space in left pectoral region utilizing a skin puncture tool. The insertable cardiac mo nitor was inserted through the puncture site with the LINQ insertion tool. Dermabond was then applied to the site in the usual sterile fashion. CONCLUSIONS: Successful placement of an ILR. Follow up in the office in 1-2 weeks for a wound check.
--- NOTE | 2018-02-26 15:37 | PDOC.PN ---
- Subjective Encounter Start Date: 02/26/18 Encounter Start Time: 15:36 Subjective: feels well. no new complain - Objective Resuscitation Status: Resuscitation Status FULL:Full Resuscitation MAR Reviewed: Yes Vital Signs & Weight: Vital Signs (12 hours) Temp Pulse Resp BP BP Pulse Ox 02/26/18 14:16 74 20 96 02/26/18 11:51 98.2 F 76 18 141/86 H 96 02/26/18 10:50 72 20 96 02/26/18 09:11 98 F 67 18 145/106 H 97 02/26/18 08:00 98 F 72 20 02/26/18 06:52 74 20 98 02/26/18 06:51 74 20 98 02/26/18 05:23 135/104 H 02/26/18 04:00 98.2 F 72 18 122/69 95 I&O: 02/25/18 02/26/18 02/27/18 06:59 06:59 06:59 Intake Total 960 Balance 960 Result Diagrams: 02/25/18 05:05 02/25/18 05:05 Additional Labs: Accuchecks 02/26/18 02/26/18 02/25/18 10:59 05:36 20:28 POC Glucose 143 H 122 H 167 H 02/25/18 17:11 POC Glucose 173 H Microbiology 02/22/18 15:55 Venous blood - Left Hand Blood Culture - Final Coagulase Neg Staphylococcus Bacillus species,NOT anthracis 02/22/18 15:55 Venous blood - Right Hand Blood Culture - Preliminary NO GROWTH AT 48 HOURS LABS REVIEWED Phys Exam - Physical Examination Constitutional: NAD HEENT: PERRLA, moist MMs, sclera anicteric, oral pharynx no lesions Neck: no nodes, no JVD, supple, full ROM Respiratory: no wheezing, no rales, no rhonchi, clear to auscultation bilateral Cardiovascular: RRR, no significant murmur, no rub Gastrointestinal: soft, non-tender, no distention, positive bowel sounds Musculoskeletal: no edema, pulses present Neurological: non-focal, normal sensation, moves all 4 limbs Psychiatric: normal affect, A&O x 3 Skin: no rash Dx/Plan (1) CVA (cerebral vascular accident) Code(s): I63.9 - CEREBRAL INFARCTION, UNSPECIFIED Status: Acute Qualifiers: Precerebral and cerebral artery: middle cerebral artery Laterality of affected vessel: left Comment: subacute, Lovenox on hold due to petechial hemorrhage. Dr Nayak recommended to continue ASA 81 mg daily (2) Tachyarrhythmia Code(s): R00.0 - TACHYCARDIA, UNSPECIFIED Status: Acute Comment: Cardiology following (3) Bacteremia Code(s): R78.81 - BACTEREMIA Status: Acute Comment: contaminant per d/w ID. (4) CAD (coronary artery disease) Code(s): I25.10 - ATHSCL HEART DISEASE OF [place] CORONARY ARTERY W/O ANG PCTRS Status: Chronic (5) Chronic respiratory failure with hypoxia Code(s): J96.11 - CHRONIC RESPIRATORY FAILURE WITH HYPOXIA Status: Chronic Comment: Recent hospitalization. On Taper Prednisone (6) DM type 2 causing CKD stage 3 Code(s): E11.22 - TYPE 2 DIABETES MELLITUS W DIABETIC CHRONIC KIDNEY DISEASE; N18.3 - CHRONIC KIDNEY DISEASE, STAGE 3 (MODERATE) Status: Chronic Comment: on sliding scale (7) Morbid obesity with BMI of 40.0-44.9, adult Code(s): E66.01 - MORBID (SEVERE) OBESITY DUE TO EXCESS CALORIES; Z68.41 - BODY MASS INDEX (BMI) 40.0-44.9, ADULT Status: Chronic (8) COPD (chronic obstructive pulmonary disease) Status: Chronic (9) Dyslipidemia Code(s): E78.5 - HYPERLIPIDEMIA, UNSPECIFIED Status: Chronic (10) Hypertension Code(s): I10 - ESSENTIAL (PRIMARY) HYPERTENSION Status: Chronic (11) Physical deconditioning Code(s): R53.81 - OTHER MALAISE Status: Chronic - Plan DVT proph w/SCDs linq PLACED.oK TO dc TO SWING BED. cLEARED BY CRADIOLOGY * . Review of Systems - Review of Systems Constitutional: negative: fever, chills, sweats, weakness, malaise, other Respiratory: negative: Cough, Dry, Shortness of Breath, Hemoptysis, SOB with Excertion, Pleuritic Pain, Sputum, Wheezing Cardiovascular: negative: chest pain, palpitations, orthopnea, paroxysmal nocturnal dyspnea, edema, light headedness, other Gastrointestinal: negative: Nausea, Vomiting, Abdominal Pain, Diarrhea, Constipation, Melena, Hematochezia, Other Genitourinary: negative: Dysuria, Frequency, Incontinence, Hematuria, Retention , Other Musculoskeletal: negative: Neck Pain, Shoulder Pain, Arm Pain, Back Pain, Hand Pain, Leg Pain, Foot Pain, Other Neurological: negative: Weakness, Numbness, Incoordination, Change in Speech, Confusion, Seizures, Other - Medications/Allergies Allergies/Adverse Reactions: Allergies Allergy/AdvReac Type Severity Reaction Status Date / Time levofloxacin [From Levaquin] Allergy Intermediate Hives Verified 12/12/17 10:16 cefaclor [From Ceclor] Allergy Verified 12/12/17 10:16 ketorolac tromethamine Allergy Verified 12/12/17 10:16 [From Toradol] Penicillins Allergy Hives Verified 12/12/17 10:16 Medications: Current Medications Acetaminophen (Tylenol) 1,000 mg PO Q6H PRN PRN Reason: Headache/Fever or Mild Pain Last Admin: 02/26/18 13:11 Dose: 1,000 mg Acidophilus (Floranex) 1 tab PO DAILY [facility] Last Admin: 02/26/18 09:23 Dose: 1 tab Albuterol/Ipratropium (Duoneb) 3 ml NEB [id number] Last Admin: 02/26/18 14:16 Dose: 3 ml Albuterol/Ipratropium (Duoneb) 3 ml NEB [id number] PRN PRN Reason: SOB &/or Wheezing Atorvastatin Calcium (Lipitor) 40 mg PO HS [facility] Last Admin: 02/25/18 20:56 Dose: 40 mg Benzonatate (Tessalon) 100 mg PO TID PRN PRN Reason: Cough Last Admin: 02/25/18 08:26 Dose: 100 mg Budesonide (Pulmicort Neb Solution) 0.5 mg INH BID-RT [facility] Last Admin: 02/26/18 06:52 Dose: 0.5 mg Calcium/Vitamin D (Caltrate 600 + Vit D) 1 tab PO BID-[facility] Last Admin: 02/26/18 09:23 Dose: 1 tab Carvedilol (Coreg) 6.25 mg PO BID-WM [facility] Last Admin: 02/26/18 05:23 Dose: 6.25 mg Clonazepam (Klonopin) 0.5 mg PO BID PRN PRN Reason: Anxiety Last Admin: 02/26/18 02:12 Dose: 0.5 mg Cyanocobalamin (Vitamin B-12) 1,000 mcg PO DAILY [facility] Last Admin: 02/26/18 09:24 Dose: 1,000 mcg Dextrose/Water (Dextrose 50%) 25 gm SLOW IVP PRN PRN PRN Reason: Hypoglycemia Diltiazem HCl (Cardizem) 30 mg PO Q6H PRN PRN Reason: HR >120 sustained Docusate Sodium (Colace) 100 mg PO BID [facility] Last Admin: 02/26/18 09:23 Dose: 100 mg Doxycycline Hyclate (Vibramycin) 100 mg PO BID [facility] Last Admin: 02/26/18 09:23 Dose: 100 mg Duloxetine HCl (Cymbalta) 60 mg PO BID [facility] Last Admin: 02/26/18 09:23 Dose: 60 mg Famotidine (Pepcid) 20 mg PO BID [facility] Last Admin: 02/26/18 09:24 Dose: 20 mg Folic Acid (Folvite) 1 mg PO DAILY [facility] Last Admin: 02/26/18 09:24 Dose: 1 mg Glucagon (Glucagon) 1 mg IM PRN PRN PRN Reason: Hypoglycemia Guaifenesin (Mucinex) 1,200 mg PO Q12HR [facility] Last Admin: 02/26/18 09:23 Dose: 1,200 mg Hydralazine HCl (Apresoline) 10 mg SLOW IVP Q4H PRN PRN Reason: BP > 220/110 Hydrochlorothiazide (Hydrochlorothiazide) 25 mg PO DAILY [facility] Last Admin: 02/26/18 09:23 Dose: 25 mg Dextrose/Water (D5w) 1,000 mls @ 0 mls/hr IV .Q0M PRN; As Directed PRN Reason: Hypoglycemia Insulin Human Lispro (Humalog) 0 units SC .MODERATE SLIDING SC PRN PRN Reason: Moderate Correctional Scale Last Admin: 02/25/18 18:49 Dose: 2 unit Insulin Human Lispro (Humalog) 0 units SC .BEDTIME SLIDING SC PRN PRN Reason: Bedtime Correctional Scale Last Admin: 02/23/18 22:33 Dose: 2 unit Lisinopril (Zestril) 10 mg PO DAILY [facility] Last Admin: 02/26/18 09:23 Dose: 10 mg Loratadine (Claritin) 10 mg PO DAILY [facility] Last Admin: 02/26/18 09:23 Dose: 10 mg Montelukast Sodium (Singulair) 10 mg PO QPM [facility] Last Admin: 02/25/18 21:01 Dose: 10 mg Multivitamins (Theragran) 1 tab PO DAILY [facility] Last Admin: 02/26/18 09:23 Dose: 1 tab Nitroglycerin (Nitrostat) 0.4 mg SL Q5MIN PRN PRN Reason: Chest Pain Ondansetron HCl (Zofran Odt) 4 mg PO Q6H PRN PRN Reason: Nausea/Vomiting Last Admin: 02/25/18 02:05 Dose: 4 mg Ondansetron HCl (Zofran) 4 mg IVP Q6H PRN PRN Reason: Nausea/Vomiting Prednisone (Prednisone) 20 mg PO BID-[facility] Last Admin: 02/26/18 09:24 Dose: 20 mg Senna (Senokot) 2 tab PO HSPRN PRN PRN Reason: Constipation Sodium Chloride (Flush - Normal Saline) 10 ml IVF PRN PRN PRN Reason: Saline Flush Last Admin: 02/25/18 21:02 Dose: 10 ml Throat Lozenges (Cepastat Lozenges) 1 esperanza PO Q2H PRN PRN Reason: Sore Throat Tramadol HCl (Ultram) 50 mg PO TID [facility] Last Admin: 02/26/18 15:12 Dose: 50 mg
[2018-02-26 15:47] VITALS: TEMP 98.1
[2018-02-26 16:08] VITALS: BP 135/104
--- NOTE | 2018-02-27 09:06 | DIS ---
DATE OF ADMISSION: 02/23/2018 DATE OF DISCHARGE: 02/26/2018 CONDITION AT THE TIME OF DISCHARGE: Stable and improved. DISCHARGE DISPOSITION: To swing bed at [facility]. DISCHARGE DIAGNOSES: 1. 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 2. Tachyarrhythmias. 3. Bacteremia. 4. Coronary artery disease. 5. Chronic respiratory failure with hypoxia, on home oxygen. 6. Diabetes mellitus, type 2. 7. Morbid obesity. 8. Chronic obstructive pulmonary disease. 9. Dyslipidemia. 10. Hypertension. 11. Physical deconditioning. PRIMARY CARE PHYSICIAN: Nancie Little D.O. DISCHARGE FOLLOWUP: 1. PCP. 2. Cardiology, Dr. Kapadia. 3. Neurology, Dr. Tiffany Jain. INHOUSE CONSULTATION: 1. Cardiology, Dr. Kapadia. 2. Neurology, Dr. Otilia Nayak. PROCEDURES DONE IN THE HOSPITAL: 1. CT scan of the brain upon presentation which showed old left frontal lobe area of stroke without acute changes. 2. MRI of the brain, it shows findings consistent with left middle cerebral artery infarction and ar eas of old infarction and bilateral hemispheres. 3. CT angio of the thorax upon presentation, which is negative for any pulmonary embolism. 4. Transthoracic echocardiogram, which shows EF of 50% to 55% and diastolic dysfunction and mild to moderate aortic regurgitation 5. Repeat MRI of the brain on 02/24/2018, which shows similar findings to the left frontal lobe, fav oring a subacute infarction in the left middle cerebral artery territory with petechial hemorrhage. 6. Placement of LINQ recorder by Dr. Kapadia for tachyarrhythmias. DISCHARGE MEDICATIONS: Famotidine 20 mg daily, Breo Ellipta 1 puff daily, Cymbalta 60 b.i.d., Medrol Dosepak, simvastatin 40 mg daily, Singulair 10 mg daily, lisinopril 10 mg daily, DuoNebs as needed, hydrochlorothiazide 12.5 mg daily, Spiriva 18 mcg daily, Klonopin 0.5 mg p.o. b.i.d., Coreg 6.25 b.i. d., aspirin 81 mg daily, doxycycline 100 mg p.o. b.i.d., and diltiazem 30 mg every 6 hours as needed. HISTORY OF PRESENT ILLNESS: Ms. Amador is a 67-year-old female with known history of chronic respira tory failure on home oxygen and diabetes and hypertension, who presented to the emergency room with c omplaints of shortness of breath and altered mental status. She underwent a CT angio, which did not show any pulmonary embolism. She underwent a CT scan of the brain as well, which did not show any ac [place] infarction. She was recently admitted to our facility from 02/13/2018 to 02/16/2018 for a COPD e xacerbation. This time around, she was admitted to rule out cerebrovascular accident/transient ischemic attack and was started on low dose aspirin and statin. Please see admission history and physical for further d etails. HOSPITAL COURSE: The patient underwent an MRI of the brain and carotid Doppler and echocardiogram in accordance with the stroke protocol. MRI was kind of inconclusive in the beginning with suggestion of left MCA infarction versus neoplasm versus abscess. Neurology was consulted and Dr. aNyak saw th e patient and according to her, it was most likely a subacute infarction. She was continued on low d ose aspirin and statin. MRI was repeated and once again the findings were almost the same. The bill ent had some speech problems, for which she was seen by OT, PT and speech therapist while in the hosp ital and subsequently recovered. She was noted to have some tachyarrhythmias on cardiac monitoring and Cardiology was consulted. Dr. Choe and Kang saw her eventually, it was decided that she would benefit from placement of a LINQ re corded, which was done earlier today. The patient was seen and examined and is doing fairly well and has been cleared by Cardiology for discharge and is hemodynamically stable. She was discharged to [facility] in [place] as per her request for rehab. Discharge plan was discussed with the patient, who verbalized understanding. She was seen and examin ed prior to discharge. Please see hospitalist progress note from today's date for further details in cluding [id number] interaction. Total spent time in the discharge of this patient 32 minutes.
== END 2018-02-26 16:18 | DRG 64 ==
LOC: ERS 15:08 → 2SE 20:37
PROVIDERS: ADMIT Family Medicine; ATTEND Family Medicine
DX: I63.9 Cerebral infarction, unspecified (principal); G93.41 Metabolic encephalopathy; N17.9 Acute kidney failure, unspecified; J96.11 Chronic respiratory failure with hypoxia; Z68.41 Body mass index [BMI] 40.0-44.9, adult; N18.3 Chronic kidney disease, stage 3 (moderate); I25.10 Atherosclerotic heart disease of native coronary artery without angina pectoris; E11.22 Type 2 diabetes mellitus with diabetic chronic kidney disease; E66.01 Morbid (severe) obesity due to excess calories; Z79.52 Long term (current) use of systemic steroids; Z79.899 Other long term (current) drug therapy; Z88.1 Allergy status to other antibiotic agents; Z88.0 Allergy status to penicillin; Z87.891 Personal history of nicotine dependence; Z99.81 Dependence on supplemental oxygen
CPT/HCPCS: 33282; 36415; 36416; 70450; 70551; 70552; 71045; 71275; 80048; 80053; 80061; 81003; 82550; 82553; 82805; 83605; 83735; 83880; 84100; 84439; 84443; 84484; 85007; 85025; 85027; 85379; 85610; 85730; 86850; 86900; 86901; 87040; 87149; 93005; 93306; 93880; 94640; C1764; G8978-GP-CJ; G8979-GP-CH; G8987-GO-CJ; G8988-GO-CH; G8996-GN-CH; G8997-GN-CH; J0360; J3370; J7050; J7506; J7620; J7626; J7644; Q0162

== ENCOUNTER 2019-07-31 21:51 | Inpatient (IN) | payer MEDICARE ==
[2019-07-31 22:32] LABS: Analyzer IN Cardio ER; Base Excess (BEa) 0.7 mEq/L (-2.0 to +3.0); Calcium, Ionized 1.12 mmol/L (1.12-1.30); Carboxyhemoglobin (COHb) 0.9 gm% (0.0-3.0); Hemoglobin (Hb) 13.6 g/dL (12.0-16.0); O2 Tension (PaO2) 73.2 mmHg (> 80.0); Potassium - ABG Lab 3.86 mmol/L (3.70-5.30); pH, Arterial 7.35 (7.35-7.45)
[2019-07-31 22:36] LABS: Puncture Site L RADIAL
[2019-08-01] MEDS ORDERED: Mag-Al 1200 mg/1200 mg/30 ML UDCUP PO PRN (01:00)
[2019-08-01] MEDS ORDERED: Dextrose 5% in Water 1,000 ML IV PRN (01:00)
[2019-08-01] MEDS ORDERED: Bisacodyl 10 MG SUPP PR PRN (01:00)
[2019-08-01] MEDS ORDERED: Dextrose 50% Abboject 50 ML SYRINGE SLOW IVP PRN (01:00)
[2019-08-01] MEDS ORDERED: Insulin Regular 300 UNITS/3 ML VIAL SC PRN (01:00)
[2019-08-01] MEDS ORDERED: Milk Of Magnesia 30 ML UDCUP PO PRN (01:00)
[2019-08-01] MEDS ORDERED: Acetaminophen 325 MG/10.15 ML UDCUP PO PRN (01:00)
[2019-08-01] MEDS ORDERED: Acetaminophen 325 MG Suppository PR PRN (01:00)
[2019-08-01] MEDS ORDERED: Calcium Carbonate 500 MG ChewTAB PO PRN (01:02)
[2019-08-01] MEDS ORDERED: Senokot S 8.6-50 MG TAB PO PRN (01:02)
[2019-08-01] MEDS ORDERED: cloNIDine 0.1 MG TAB PO PRN (01:04)
[2019-08-01] MEDS ORDERED: Bacteriostatic Water 30 ML VIAL FS PRN (01:15)
[2019-08-01 01:40] VITALS: BMI 49.3
--- NOTE | 2019-08-01 01:48 | HP ---
The patient was seen and examined on 31 July 2019. CHIEF COMPLAINT: Shortness of breath. HISTORY OF PRESENT ILLNESS: The patient is a 69-year-old female, with COPD, presented to the emergency room at [place] with worsening shortness of breath of 2 days duration. The shortness of breath was associated with chest tightness and wheezing. She felt lightheaded as well. She had cough productive of thick whitish phlegm. She also had one of the family members who had upper respiratory tract infection. She has chronic edema in bilateral lower extremity, which has not changed recently. She denies any orthopnea. She tried using nebulizer without much relief. She has subsequently presented to the emergency room. In the emergency room, she was started on noninvasive positive-pressure ventilation. Her initial respiratory rate was 30. She received lorazepam, azithromycin, magnesium, DuoNebs, and 125 mg Solu-Medrol and was transferred to this facility. PAST MEDICAL HISTORY: 1. COPD. 2. Hypertension. 3. Diabetes mellitus type 2. 4. Severe coronary artery disease. 5. Anxiety and depression. 6. History of DVT in the past. 7. History of polysubstance abuse in the past. 8. Ongoing tobacco dependence. 9. Infrarenal abdominal aortic aneurysm. 10. Hyperlipidemia. 11. Chronic kidney disease, stage 3. 12. History of CVA in February 2018. 13. Chronic diastolic heart failure. 14. Diabetes mellitus type 2. 15. Isci-qk-qrxcbmyd aortic regurgitation. PAST SURGICAL HISTORY: 1. Cardiac catheterization. 2. Bilateral tubal ligation. 3. Right breast lumpectomy. 4. Cholecystectomy. 5. Loop recorder placement in February 2018 for CVA. ALLERGIES: THE PATIENT IS ALLERGIC TO TORADOL, PENICILLIN, LEVAQUIN, AND CEPHALOSPORINS. CURRENT HOME MEDICATIONS: The patient is unable to recall any of her home medications. SOCIAL HISTORY: She is a former smoker. She continues tobacco vaping. No current use of alcohol or drug use. She makes her own decision with the help of her family. FAMILY HISTORY: Positive for hypertension, diabetes, and heart disease. REVIEW OF SYSTEMS: All other review of systems was reviewed and were found negative. PHYSICAL EXAMINATION: VITAL SIGNS: On ER arrival, showed temperature 99.3, respirations of 30, pulse rate of 111 with a blood pressure of 187/76, O2 saturation of 92% on 2 L nasal cannula. GENERAL: A 69-year-old female, in mild respiratory distress, on noninvasive positive-pressure ventilation. HEENT: Head, atraumatic and normocephalic. Sclerae anicteric. Moist mucous membranes. No oral lesion. NECK: Supple. No JVD appreciated. No carotid bruit. LUNGS: Showed expiratory wheezing with accessory muscle use. There was scattered rhonchi. No significant rales appreciated. HEART: S1 and S2 present. Regular rate and rhythm. Tachycardic. No rubs or gallops. ABDOMEN: Obese, soft. Bowel sounds present. No rebound or guarding. EXTREMITIES: 2+ edema in bilateral lower extremity. SKIN: Warm and dry. LYMPH NODES: No palpable lymph nodes in the neck. Peripheral, vascular, and radial pulses palpable bilaterally. MUSCULOSKELETAL: No joint swelling or tenderness. LABORATORY FINDINGS: WBC 23.3 with hemoglobin 13, hematocrit 41.9, platelet 242. VBGs at [facility] showed pH of 7.34 with pCO2 of 54. ABGs at this facility showed pH 7.35 with pCO2 of 50, pO2 of 73.2 with O2 saturation of 94%. Chemistry showed sodium 139, potassium 3.8, chloride 99, bicarb 28, BUN 11, creatinine 1.05. Lactic acid on admission was 2.7, repeat was 1.8. Troponin was negative. BNP was negative. Chest x-ray by my review showed cardiomegaly with nonspecific changes. Telemetry monitoring by my review showed sinus tachycardia. IMPRESSION: 1. Acute hypoxic and hypercapnic respiratory failure secondary to chronic obstructive pulmonary disease exacerbation. 2. Severe sepsis secondary to suspected pneumonia, questionable pneumococcal. 3. Diabetes mellitus type 2. 4. Hypertension. 5. History of cerebrovascular accident. 6. Coronary artery disease. 7. Diabetes mellitus type 2. 8. Morbid obesity. 9. Dyslipidemia. 10. Hypertension. 11. Ongoing tobacco dependence. 12. History of infrarenal abdominal aortic aneurysm. 13. Yikk-nd-whgjwkop aortic regurgitation. 14. Chronic diastolic heart failure. PLAN: The patient will be monitored in the IMCU. We will continue nebulizer treatment. We will also continue noninvasive positive-pressure ventilation. Lactic acid has improved. We will continue steroids. Continue azithromycin. Consult Pulmonary, Dr. Strauss in a.m. The patient was counseled to quit tobacco. Insulin sliding scale. We will verify home medications and start accordingly. We will resume selected home medication based on the last discharge summary. Plan was discussed with the patient in detail. She stated understanding thank. Job ID: [id number]
[2019-08-01 05:18] LABS: #Monocytes 0.4 thou/uL (0.11-0.59); #Neutrophils 17.7 thou/uL (1.40-6.50); %Basophils 0.1 % (0.0-1.0); %Eosinophils 0.2 % (0.0-10.0); %Lymphocytes 5.4 % (21.0-51.0); %Monocytes 1.9 % (0.0-10.0); %Neutrophils 92.5 % (42.0-75.0); Hemoglobin 12.8 g/dL (12.0-16.0); Mean Corpuscular HGB CONC 32.8 g/dL (32.0-36.0); Mean Corpuscular Hemoglobin 31.8 pg (27.0-31.0); Mean Corpuscular Volume 97.1 fL (78.0-98.0); Mean Platelet Volume 8.5 fL (7.4-10.4); Platelet Count 209 thou/uL (130-400); Red Blood Cell (RBC) Count 4.03 mill/uL (4.20-5.40); White Blood Cell (WBC) Count 19.2 thou/uL (4.8-10.8)
[2019-08-01] MEDS: methylPREDNISolone Sod Succ 40 MG VIAL IVP SCH ×3 (05:19→21:02)
[2019-08-01] MEDS: Insulin Regular 300 UNITS/3 ML VIAL SC PRN ×4 (05:19→16:20)
[2019-08-01 05:40] LABS: ALT (SGPT) 12 U/L (8-55); AST (SGOT) 14 U/L (5-34); Albumin 3.9 g/dL (3.4-4.8); Alkaline Phosphatase 64 U/L (40-110); Anion Gap 13 mmol/L (10-20); BUN (Urea Nitrogen) 13 mg/dL (9.8-20.1); Bilirubin, Total 0.7 mg/dL (0.2-1.2); Calc. Creatinine Clearance 105 mL/min (70-130); Calcium 8.9 mg/dL (7.8-10.44); Carbon Dioxide 27 mmol/L (23-31); Chloride 100 mmol/L (98-107); Estimated GFR-MDRD 53; Globulin 3.3 g/dL (2.4-3.5); Glucose 264 mg/dL (80-115); Potassium 4.2 mmol/L (3.5-5.1); Protein, Total 7.2 g/dL (6.0-8.3); Sodium 136 mmol/L (136-145)
[2019-08-01] MEDS ORDERED: Aspirin 81 mg Enteric Coated Tablet PO SCH (09:00)
[2019-08-01] MEDS: Famotidine 20 MG TAB PO SCH (09:14)
[2019-08-01] MEDS: Enoxaparin Sodium 40 MG/0.4 ML SYRINGE SC SCH (09:14)
[2019-08-01] MEDS ORDERED: Loratadine 10 MG TAB PO PRN (09:15)
[2019-08-01] MEDS ORDERED: Ipratropium Bromide 2.5 ml Neb NEB SCH (13:00)
[2019-08-01] MEDS: clonazePAM 0.5 MG TAB PO PRN (13:30)
[2019-08-01] MEDS: Sodium Chloride 0.45% 1,000 ML IV SCH (14:45)
[2019-08-01] MEDS: Mometasone/Formoterol 120 PUFF INHALER INH SCH (18:50)
[2019-08-01] MEDS: Azithromycin 500 MG in Sodium Chloride 0.9% 250 ML 250 ML IVPB SCH (21:01)
[2019-08-01] MEDS: DULoxetine 60 MG CAP PO SCH (21:01)
[2019-08-01] MEDS: Montelukast Sodium 10 mg Tablet PO SCH (21:01)
[2019-08-01] MEDS: Atorvastatin Calcium 20 MG TAB PO SCH (21:01)
[2019-08-01] MEDS: Sacubitril 49 MG/Valsartan 51 MG TABLET PO SCH (21:02)
[2019-08-01] MEDS: traMADol HCl 50 MG TAB PO PRN (23:12)
[2019-08-02] MEDS: Acetaminophen 325 MG TAB PO PRN ×2 (00:06→20:41)
--- NOTE | 2019-08-02 01:27 | CON ---
DATE OF CONSULTATION: 08/01/2019 HISTORY OF PRESENT ILLNESS: Dedra Amador is a pleasant 69-year-old female with chronic obstructive pulmonary disease. I saw her when she was hospitalized back in 2012. She was smoking at that time, but down to 4 or 5 cigarettes a day. She eventually quit smoking. She actually required intensive care that admission, but did not require ventilatory support. She improved slowly. She has had waxing and waning pulmonary function at home, but has not had any prolonged COPD exacerbations since she quit smoking. She presented with several days of increasing shortness of breath subsequently and was admitted and required transient noninvasive ventilation. PAST MEDICAL HISTORY: Remarkable for; 1. Hypertension. 2. Diabetes. 3. Coronary artery disease. 4. History of DVT. 5. History of an infrarenal abdominal aortic aneurysm. 6. Lipid disorder. 7. Chronic kidney disease. 8. History of CVA in 2018. 9. History of diastolic heart failure. 10. History of aortic regurgitation. 11. History of cardiac catheterization. 12. History of tubal ligation. 13. History of breast lumpectomy. 14. History of cholecystectomy. 15. History of a loop recorder placed in February 2018. ALLERGIES: SHE REPORTS PENICILLIN, TORADOL, LEVAQUIN, CEPHALOSPORIN INTOLERANCE. MEDICATIONS: She uses a nebulizer normally twice a day at home, sometimes 3 or 4 times a day depending on how she is feeling. SOCIAL HISTORY: She does not smoke. She does vape nicotine products. She does not use alcohol or drugs. FAMILY HISTORY: Positive for hypertension, diabetes, and heart disease. REVIEW OF SYSTEMS: 10 point review of systems completed, otherwise negative. PHYSICAL EXAMINATION: GENERAL: Dedra Amador is a pleasant 69-year-old female with chronic obstructive pulmonary disease. VITAL SIGNS: Heart rate is 90, respiratory rate is 20, oximetry is 96%. HEENT: Pupils are equal. Sclerae are anicteric. NECK: Supple. She is in no distress. She has end-expiratory wheezes. HEART: Regular rhythm. S1 and S2 are normal. ABDOMEN: Soft and nontender. EXTREMITIES: Without clubbing, cyanosis, or edema. Chest radiograph does not show any alveolar infiltrates. IMPRESSION: Chronic obstructive pulmonary disease exacerbation with possible coexistent bronchitis. PLAN: Continue current care. I will be happy to follow the other physicians caring for this. TIME SPENT: This is a 70-minute consult, with greater than 50% of the time spent on the unit coordinating care. Job ID: [id number] MTDD
[2019-08-02 04:00] LABS: #Lymphocytes 1.6 thou/uL (1.20-3.40); #Neutrophils 15.6 thou/uL (1.40-6.50); %Basophils 0.1 % (0.0-1.0); %Eosinophils 0.1 % (0.0-10.0); %Lymphocytes 8.8 % (21.0-51.0); %Monocytes 5.4 % (0.0-10.0); %Neutrophils 85.6 % (42.0-75.0); Hemoglobin 11.5 g/dL (12.0-16.0); Mean Corpuscular HGB CONC 31.1 g/dL (32.0-36.0); Mean Corpuscular Hemoglobin 31.6 pg (27.0-31.0); Mean Platelet Volume 8.6 fL (7.4-10.4); Platelet Count 198 thou/uL (130-400); RBC Distribution Width 12.2 % (11.5-14.5); Red Blood Cell (RBC) Count 3.65 mill/uL (4.20-5.40); White Blood Cell (WBC) Count 18.2 thou/uL (4.8-10.8)
[2019-08-02 04:26] LABS: ALT (SGPT) 11 U/L (8-55); AST (SGOT) 14 U/L (5-34); Albumin 3.4 g/dL (3.4-4.8); Alkaline Phosphatase 51 U/L (40-110); Anion Gap 15 mmol/L (10-20); BUN (Urea Nitrogen) 22 mg/dL (9.8-20.1); Bilirubin, Total 0.3 mg/dL (0.2-1.2); Calc. Creatinine Clearance 113 mL/min (70-130); Calcium 8.6 mg/dL (7.8-10.44); Carbon Dioxide 23 mmol/L (23-31); Chloride 101 mmol/L (98-107); Estimated GFR-MDRD 57; Globulin 3.1 g/dL (2.4-3.5); Glucose 185 mg/dL (80-115); Potassium 4.3 mmol/L (3.5-5.1); Protein, Total 6.5 g/dL (6.0-8.3); Sodium 135 mmol/L (136-145)
[2019-08-02] MEDS: Insulin Regular 300 UNITS/3 ML VIAL SC PRN ×3 (05:24→12:33)
[2019-08-02] MEDS: Sodium Chloride 0.45% 1,000 ML IV SCH (05:25)
[2019-08-02] MEDS: methylPREDNISolone Sod Succ 40 MG VIAL IVP SCH ×3 (05:25→21:57)
[2019-08-02] MEDS: Mometasone/Formoterol 120 PUFF INHALER INH SCH ×2 (07:08→18:23)
[2019-08-02] MEDS: Aspirin 81 mg Enteric Coated Tablet PO SCH (08:53)
[2019-08-02] MEDS: Sacubitril 49 MG/Valsartan 51 MG TABLET PO SCH ×2 (08:53→20:42)
[2019-08-02] MEDS: Famotidine 20 MG TAB PO SCH (08:53)
[2019-08-02] MEDS: Docusate 100 MG CAP PO SCH (08:53)
[2019-08-02] MEDS: DULoxetine 60 MG CAP PO SCH ×2 (08:53→20:42)
[2019-08-02] MEDS: Enoxaparin Sodium 40 MG/0.4 ML SYRINGE SC SCH (08:54)
[2019-08-02] MEDS: clonazePAM 0.5 MG TAB PO PRN ×2 (08:56→19:30)
[2019-08-02] MEDS ORDERED: Non-Formulary Item 1 EACH (Fluticasone/Vilanterol [Breo Ellipta] 1 PUFF) INH SCH (09:00)
--- NOTE | 2019-08-02 15:07 | PDOC.HOSPP ---
- Subjective Subjective: Seen and examined. Clinically improved from yesterday. Sitting up in bed breathing well on nasal cannula, low-flow. States she is feeling much better. Still with wheezing. Did cough up a "bunch of brown stuff." - Objective Vital Signs & Weight: Vital Signs (12 hours) Temp Pulse Pulse Pulse Resp BP BP 08/02/19 14:42 79 20 08/02/19 11:03 87 82 161/96 H 157/79 H 08/02/19 10:41 98.3 F 08/02/19 07:46 08/02/19 07:21 97.0 F L 08/02/19 07:07 84 16 08/02/19 03:36 96.7 F L Pulse Ox Pulse Ox Pulse Ox 08/02/19 14:42 96 08/02/19 11:03 95 96 08/02/19 10:41 08/02/19 07:46 94 L 08/02/19 07:21 08/02/19 07:07 96 08/02/19 03:36 Weight Weight 287 lb 1 oz Most Recent Monitor Data Heart Rate from ECG 83 NIBP 153/89 NIBP BP-Mean 110 Respiration from ECG 18 SpO2 96 I&O: 08/01/19 08/02/19 08/03/19 06:59 06:59 06:59 Intake Total 100 2512 480 Output Total 450 1150 Balance -350 1362 480 Result Diagrams: 08/02/19 03:39 08/02/19 03:39 Additional Labs: Accuchecks 08/02/19 08/02/19 08/02/19 11:59 08:05 04:28 POC Glucose 169 H 240 H 175 H 08/01/19 08/01/19 08/01/19 23:33 19:44 16:14 POC Glucose 219 H 194 H 173 H Radiology Reviewed by me: Yes (Echo) Hospitalist ROS - Review of Systems All other systems reviewed; all pertinent +/- noted in HPI/Subj - Medication Medications: Active Medications Generic Name Dose Route Start Last Admin Trade Name Freq PRN Reason Stop Dose Admin Acetaminophen 650 mg 08/01/19 01:02 08/02/19 00:06 Tylenol PO 650 mg Q4H PRN Administration Headache/Fever/Mild Pain (1-3) Albuterol/Ipratropium 3 ml 08/01/19 02:30 08/02/19 14:42 Duoneb NEB 3 ml [id number] BALDOMERO Administration Aspirin 81 mg 08/02/19 09:00 08/02/19 08:53 Ecotrin PO 81 mg DAILY BALDOMERO Administration Atorvastatin Calcium 20 mg 08/01/19 21:00 08/01/19 21:01 Lipitor PO 20 mg HS BALDOMERO Administration Clonazepam 0.5 mg 08/01/19 09:15 08/02/19 08:56 Klonopin PO 0.5 mg BID PRN Administration Anxiety Docusate Sodium 100 mg 08/02/19 09:00 08/02/19 08:53 Colace PO 100 mg DAILY BALDOMERO Administration Duloxetine HCl 60 mg 08/01/19 21:00 08/02/19 08:53 Cymbalta PO 60 mg BID BALDOMERO Administration Enoxaparin Sodium 40 mg 08/01/19 09:00 08/02/19 08:54 Lovenox SC 40 mg 0900 BALDOMERO Administration Famotidine 20 mg 08/01/19 09:00 08/02/19 08:53 Pepcid PO 20 mg DAILY BALDOMERO Administration Azithromycin 500 mg/ Sodium 250 mls @ 250 mls/hr 08/01/19 21:00 08/01/19 21: 01 Chloride IVPB 250 mls 2100 BALDOMERO Administration Insulin Human Regular 0 units 08/01/19 01:00 08/02/19 12:33 Humulin R SC 2 units .MODERATE SLIDING SC PRN Administration Moderate Correctional Scale Insulin Human Regular 0 units 08/01/19 01:00 08/02/19 00:07 Humulin R SC 2 units .BEDTIME SLIDING SC PRN Administration Bedtime Correctional Scale Methylprednisolone Sodium Succinate 20 mg 08/01/19 06:00 08/02/19 14:45 Solu-Medrol IVP 20 mg Q8HR BALDOMERO Administration Mometasone Furoate/Formoterol Fumar 2 puff 08/01/19 18:30 08/02/19 07:08 Dulera 100 Mcg/5 Mcg Inhaler INH 2 puff BID-RT BALDOMERO Administration Montelukast Sodium 10 mg 08/01/19 21:00 08/01/19 21:01 Singulair PO 10 mg QPM BALDOMERO Administration Sacubitril/Valsartan 1 tab 08/01/19 21:00 08/02/19 08:53 Entresto 49 Mg-51 Mg Tablet PO 1 tab BID BALDOMERO Administration Sterile Water 1 ml 08/01/19 01:15 08/01/19 05:19 Bacteriostatic Water FS 1 ml PRN PRN Administration RECONSTITUTION Tramadol HCl 50 mg 08/01/19 09:15 08/01/19 23:12 Ultram PO 50 mg TID PRN Administration Pain - Exam General Appearance: NAD, awake alert Eye: PERRL ENT: normocephalic atraumatic, moist mucosa Neck: supple, symmetric, no lymphadenopathy Heart: no murmur, no gallops, no rubs Respiratory: no rales, normal chest expansion, rhonchi, tachypneic, wheezes Gastrointestinal: soft, non-tender, non-distended, no guarding, no rigidity Extremities: no edema Skin: no lesions, no rashes Neurological: cranial nerve grossly intact, no focal deficits Musculoskeletal: generalized weakness Psychiatric: normal affect, A&O x 3 Hosp A/P (1) COPD exacerbation Code(s): J44.1 - CHRONIC OBSTRUCTIVE PULMONARY DISEASE W (ACUTE) EXACERBATION Status: Resolved (2) Acute on chronic respiratory failure with hypoxia Code(s): J96.21 - ACUTE AND CHRONIC RESPIRATORY FAILURE WITH HYPOXIA Status: Resolved (3) COPD (chronic obstructive pulmonary disease) Status: Chronic (4) Chronic respiratory failure with hypoxia Code(s): J96.11 - CHRONIC RESPIRATORY FAILURE WITH HYPOXIA Status: Chronic (5) DM type 2 causing CKD stage 3 Code(s): E11.22 - TYPE 2 DIABETES MELLITUS W DIABETIC CHRONIC KIDNEY DISEASE; N18.3 - CHRONIC KIDNEY DISEASE, STAGE 3 (MODERATE) Status: Chronic (6) Dyslipidemia Code(s): E78.5 - HYPERLIPIDEMIA, UNSPECIFIED Status: Chronic (7) Hypertension Code(s): I10 - ESSENTIAL (PRIMARY) HYPERTENSION Status: Chronic (8) Leukocytosis Code(s): D72.829 - ELEVATED WHITE BLOOD CELL COUNT, UNSPECIFIED Status: Chronic (9) Morbid obesity with BMI of 40.0-44.9, adult Code(s): E66.01 - MORBID (SEVERE) OBESITY DUE TO EXCESS CALORIES; Z68.41 - BODY MASS INDEX (BMI) 40.0-44.9, ADULT Status: Chronic (10) ALEXANDER (obstructive sleep apnea) Code(s): G47.33 - OBSTRUCTIVE SLEEP APNEA (ADULT) (PEDIATRIC) Status: Chronic (11) Tobacco abuse Code(s): Z72.0 - TOBACCO USE Status: Resolved - Plan Plan: [facility] pulmonology consultation, recommendations appreciated IV steroids IV antibiotics small-volume nebulizers scheduled and as needed echocardiogram with reduced ejection fraction of 45% continue other home medications as able blood pressure control blood sugar control Replace electrolytes as needed
[2019-08-02] MEDS: Atorvastatin Calcium 20 MG TAB PO SCH (20:41)
[2019-08-02] MEDS: Azithromycin 500 MG in Sodium Chloride 0.9% 250 ML 250 ML IVPB SCH (20:41)
[2019-08-02] MEDS: Montelukast Sodium 10 mg Tablet PO SCH (20:42)
--- NOTE | 2019-08-02 21:02 | PRG ---
DATE OF SERVICE: 08/02/2019 SUBJECTIVE: Ms. Amador says she feels better. OBJECTIVE: VITAL SIGNS: Heart rate in 80s, respiratory rates in the teens, oximetry is 94% to 96%, blood pressure 139/98. LUNGS: Clear. HEART: Regular rhythm. ABDOMEN: Soft. LABORATORY DATA: White count 18.2, hemoglobin 11.5, platelets 198. Sodium 135, potassium 4.3, chloride 101, bicarb 23, BUN 22, creatinine 0.97. IMPRESSION: 1. Chronic obstructive pulmonary disease exacerbation. 2. Chronic hypoxemic respiratory failure with hypercarbia. 3. Morbid obesity. 4. Hypertension. 5. Diabetes. 6. History of deep venous thrombosis. 7. History of coronary artery disease. 8. History of chronic kidney disease. 9. History of cerebrovascular accident. 10. History of diastolic heart failure. 11. Aortic regurgitation. 12. Multiple drug allergies. PLAN: Continue with supportive care. She probably could be transferred out of the intermediate care unit in the next 24 hours. Job ID: [id number]
[2019-08-03] MEDS: traMADol HCl 50 MG TAB PO PRN ×2 (01:22→20:52)
[2019-08-03] MEDS: methylPREDNISolone Sod Succ 40 MG VIAL IVP SCH ×3 (05:37→23:08)
[2019-08-03] MEDS: Mometasone/Formoterol 120 PUFF INHALER INH SCH ×2 (08:04→18:50)
[2019-08-03] MEDS: Sacubitril 49 MG/Valsartan 51 MG TABLET PO SCH ×2 (08:40→20:46)
[2019-08-03] MEDS: Docusate 100 MG CAP PO SCH (08:40)
[2019-08-03] MEDS: Aspirin 81 mg Enteric Coated Tablet PO SCH (08:40)
[2019-08-03] MEDS: Enoxaparin Sodium 40 MG/0.4 ML SYRINGE SC SCH (08:40)
[2019-08-03] MEDS: clonazePAM 0.5 MG TAB PO PRN ×2 (08:40→20:53)
[2019-08-03] MEDS: Famotidine 20 MG TAB PO SCH (08:40)
[2019-08-03] MEDS: DULoxetine 60 MG CAP PO SCH ×2 (08:41→20:46)
[2019-08-03] MEDS: Insulin Regular 300 UNITS/3 ML VIAL SC PRN (08:41)
[2019-08-03] MEDS ORDERED: Magnesium 2 GM/50 ML 3 GM in Premix Bag 1 BAG IVPB SCH (10:30)
[2019-08-03] MEDS: Sodium Chloride 0.45% 1,000 ML IV SCH (10:40)
--- NOTE | 2019-08-03 13:44 | PDOC.HOSPP ---
- Subjective Subjective: Seen and examined. Clinically improving. Breathing more comfortably. She is still having significant wheezing, though she is breathing much more easily than when she was admitted. Blood pressure remains elevated, this is partially worsened by her persistent coughing. Patient with cardiomyopathy on interest oh , however she is not on beta renée will add beta renée at this time to aid in heart rate and blood pressure control. - Objective Vital Signs & Weight: Vital Signs (12 hours) Temp Pulse Resp Pulse Ox 08/03/19 10:40 98.6 F 08/03/19 08:03 77 18 97 08/03/19 07:51 95 08/03/19 07:00 97.0 F L 08/03/19 03:00 97.8 F 08/03/19 02:13 81 17 96 Weight Weight 281 lb 1 oz Most Recent Monitor Data Heart Rate from ECG 88 NIBP 158/104 NIBP BP-Mean 122 Respiration from ECG 16 SpO2 95 I&O: 08/02/19 08/03/19 08/04/19 06:59 06:59 06:59 Intake Total 2512 2228.5 480 Output Total 1150 1400 Balance 1362 828.5 480 Result Diagrams: 08/02/19 03:39 08/02/19 03:39 Additional Labs: Accuchecks 08/03/19 08/03/19 08/03/19 12:35 08:05 03:36 POC Glucose 150 H 212 H 162 H 08/02/19 08/02/19 08/02/19 23:14 20:07 16:03 POC Glucose 152 H 175 H 123 H Radiology Reviewed by me: Yes (Echo) Hospitalist ROS - Review of Systems All other systems reviewed; all pertinent +/- noted in HPI/Subj - Medication Medications: Active Medications Generic Name Dose Route Start Last Admin Trade Name Freq PRN Reason Stop Dose Admin Acetaminophen 650 mg 08/01/19 01:02 08/02/19 20:41 Tylenol PO 650 mg Q4H PRN Administration Headache/Fever/Mild Pain (1-3) Aspirin 81 mg 08/02/19 09:00 08/03/19 08:40 Ecotrin PO 81 mg DAILY BALDOMERO Administration Atorvastatin Calcium 20 mg 08/01/19 21:00 08/02/19 20:41 Lipitor PO 20 mg HS BALDOMERO Administration Clonazepam 0.5 mg 08/01/19 09:15 08/03/19 08:40 Klonopin PO 0.5 mg BID PRN Administration Anxiety Docusate Sodium 100 mg 08/02/19 09:00 08/03/19 08:40 Colace PO 100 mg DAILY BALDOMERO Administration Duloxetine HCl 60 mg 08/01/19 21:00 08/03/19 08:41 Cymbalta PO 60 mg BID BALDOMERO Administration Enoxaparin Sodium 40 mg 08/01/19 09:00 08/03/19 08:40 Lovenox SC 40 mg 0900 BALDOMERO Administration Famotidine 20 mg 08/01/19 09:00 08/03/19 08:40 Pepcid PO 20 mg DAILY BALDOMERO Administration Sodium Chloride 1,000 mls @ 75 mls/hr 08/03/19 10:30 08/03/19 10:40 1/2 Normal Saline IV 1,000 mls .[id number] BALDOMERO Administration Insulin Human Regular 0 units 08/01/19 01:00 08/03/19 08:41 Humulin R SC 4 units .MODERATE SLIDING SC PRN Administration Moderate Correctional Scale Insulin Human Regular 0 units 08/01/19 01:00 08/02/19 00:07 Humulin R SC 2 units .BEDTIME SLIDING SC PRN Administration Bedtime Correctional Scale Methylprednisolone Sodium Succinate 20 mg 08/01/19 06:00 08/03/19 05:37 Solu-Medrol IVP 20 mg Q8HR BALDOMERO Administration Mometasone Furoate/Formoterol Fumar 2 puff 08/01/19 18:30 08/03/19 08:04 Dulera 100 Mcg/5 Mcg Inhaler INH 2 puff BID-RT BALDOMERO Administration Montelukast Sodium 10 mg 08/01/19 21:00 08/02/19 20:42 Singulair PO 10 mg QPM BALDOMERO Administration Sacubitril/Valsartan 1 tab 08/01/19 21:00 08/03/19 08:40 Entresto 49 Mg-51 Mg Tablet PO 1 tab BID BALDOMERO Administration Sterile Water 1 ml 08/01/19 01:15 08/01/19 05:19 Bacteriostatic Water FS 1 ml PRN PRN Administration RECONSTITUTION Tramadol HCl 50 mg 08/01/19 09:15 08/03/19 01:22 Ultram PO 50 mg TID PRN Administration Pain - Exam General Appearance: NAD, awake alert Eye: PERRL ENT: normocephalic atraumatic, moist mucosa Neck: supple, no lymphadenopathy Heart: no murmur, no gallops, no rubs Heart - other findings: Rapid regular rhythm Respiratory: no rales, rhonchi, tachypneic, wheezes Gastrointestinal: soft, non-tender, no guarding, no rigidity Gastrointestinal - other findings: Elevated BMI Extremities: 1+ LE edema Skin: no lesions, no rashes Neurological: cranial nerve grossly intact, no focal deficits Musculoskeletal: generalized weakness Psychiatric: normal affect, A&O x 3 Hosp A/P (1) COPD exacerbation Code(s): J44.1 - CHRONIC OBSTRUCTIVE PULMONARY DISEASE W (ACUTE) EXACERBATION Status: Resolved (2) Acute on chronic respiratory failure with hypoxia Code(s): J96.21 - ACUTE AND CHRONIC RESPIRATORY FAILURE WITH HYPOXIA Status: Resolved (3) COPD (chronic obstructive pulmonary disease) Status: Chronic (4) Chronic respiratory failure with hypoxia Code(s): J96.11 - CHRONIC RESPIRATORY FAILURE WITH HYPOXIA Status: Chronic (5) DM type 2 causing CKD stage 3 Code(s): E11.22 - TYPE 2 DIABETES MELLITUS W DIABETIC CHRONIC KIDNEY DISEASE; N18.3 - CHRONIC KIDNEY DISEASE, STAGE 3 (MODERATE) Status: Chronic (6) Dyslipidemia Code(s): E78.5 - HYPERLIPIDEMIA, UNSPECIFIED Status: Chronic (7) Hypertension Code(s): I10 - ESSENTIAL (PRIMARY) HYPERTENSION Status: Chronic (8) Leukocytosis Code(s): D72.829 - ELEVATED WHITE BLOOD CELL COUNT, UNSPECIFIED Status: Chronic (9) Morbid obesity with BMI of 40.0-44.9, adult Code(s): E66.01 - MORBID (SEVERE) OBESITY DUE TO EXCESS CALORIES; Z68.41 - BODY MASS INDEX (BMI) 40.0-44.9, ADULT Status: Chronic (10) ALEXANDER (obstructive sleep apnea) Code(s): G47.33 - OBSTRUCTIVE SLEEP APNEA (ADULT) (PEDIATRIC) Status: Chronic (11) Tobacco abuse Code(s): Z72.0 - TOBACCO USE Status: Resolved - Plan Plan: [facility] pulmonology consultation, recommendations appreciated IV steroids IV antibiotics small-volume nebulizers scheduled and as needed echocardiogram with reduced ejection fraction of 45% Cardiomyopathy regimen: -Entresto -Start Coreg - Will aid in BP control -Lasix continue other home medications as able blood pressure control blood sugar control Replace electrolytes as needed
--- NOTE | 2019-08-03 17:18 | PRG ---
DATE OF SERVICE: 08/03/2019 SUBJECTIVE: Dedra Amador has no complaints other than not feeling as good as she felt yesterday. I have adjusted medications for that. OBJECTIVE: VITAL SIGNS: She is afebrile. Heart rate 75, respiratory rate 15, oximetry is 96 on 3 L. Blood pressure is mildly elevated at 153/102, in the afternoon, it has been in the 140 to 170 range. LUNGS: Remarkable for diffuse wheezes. HEART: Regular rhythm. ABDOMEN: Soft. IMPRESSION: Chronic obstructive pulmonary disease exacerbation, feeling a little worse today. I have made medication adjustments. Hopefully, we will see some improvement with that. She could still wear BiPAP as needed and with sleep. Job ID: [id number]
[2019-08-03] MEDS: Carvedilol 3.125 MG TAB PO SCH (18:10)
[2019-08-03] MEDS: Acetaminophen 325 MG TAB PO PRN (18:12)
[2019-08-03] MEDS: Atorvastatin Calcium 20 MG TAB PO SCH (20:46)
[2019-08-03] MEDS: Montelukast Sodium 10 mg Tablet PO SCH (20:46)
[2019-08-03] MEDS: guaiFENesin ER 600 MG TAB PO SCH (20:46)
[2019-08-03] MEDS: Azithromycin 250 MG TAB PO SCH (20:47)
[2019-08-04] MEDS: Sodium Chloride 0.45% 1,000 ML IV SCH ×2 (02:25→15:12)
[2019-08-04] MEDS: methylPREDNISolone Sod Succ 40 MG VIAL IVP SCH ×3 (06:11→21:57)
[2019-08-04] MEDS: Mometasone/Formoterol 120 PUFF INHALER INH SCH ×2 (08:06→19:44)
[2019-08-04] MEDS: Sacubitril 49 MG/Valsartan 51 MG TABLET PO SCH ×2 (09:32→21:07)
[2019-08-04] MEDS: Enoxaparin Sodium 40 MG/0.4 ML SYRINGE SC SCH (09:32)
[2019-08-04] MEDS: guaiFENesin ER 600 MG TAB PO SCH ×2 (09:32→21:11)
[2019-08-04] MEDS: DULoxetine 60 MG CAP PO SCH ×2 (09:33→21:11)
[2019-08-04] MEDS: Famotidine 20 MG TAB PO SCH (09:33)
[2019-08-04] MEDS: Carvedilol 3.125 MG TAB PO SCH ×2 (09:33→17:40)
[2019-08-04] MEDS: Aspirin 81 mg Enteric Coated Tablet PO SCH (09:33)
[2019-08-04] MEDS: Docusate 100 MG CAP PO SCH (09:33)
[2019-08-04] MEDS: clonazePAM 0.5 MG TAB PO PRN ×2 (09:55→22:06)
--- NOTE | 2019-08-04 11:30 | PRG ---
DATE OF SERVICE: 08/04/2019 SUBJECTIVE: Dedra Amador says she feels better today. OBJECTIVE: VITAL SIGNS: Heart rate is 79, respiratory rate is 21, oximetry is 96 on 3 L, and blood pressure is 128/88. LUNGS: Remarkable for distant wheezes. She is better than yesterday. Her expiratory phase is shorter. HEART: Regular rhythm. ABDOMEN: Soft and nontender. EXTREMITIES: With stasis changes and edema, these are unchanged. LABORATORY DATA: Intake and output, positive 477. There is no new lab today other than blood glucoses. IMPRESSION: 1. Chronic obstructive pulmonary disease exacerbation, slowly improving. 2. Chronic hypoxemic respiratory failure with hypercarbia. 3. Morbid obesity. 4. Hypertension. 5. Diabetes. 6. History of deep venous thrombosis. 7. History of coronary artery disease. 8. Chronic kidney disease. 9. History of cerebrovascular accident. 10. Diastolic heart failure, not felt to be a clinical component of this admission. 11. Aortic regurgitation. 12. Multiple drug allergies. PLAN: Continue current care. Job ID: [id number]
--- NOTE | 2019-08-04 15:07 | PQF ---
DATE: 08-04-19 ATTN: DR. JESICA ROBERTSON Please exercise your independent, professional judgment in responding to the clarification form. Clinical indicators are provided on the bottom of this form for your review Please check appropriate box(s) to clarify if the following diagnosis has been ruled in or ruled out: SEVERE SEPSIS [ XX ] Ruled in diagnosis [ XX ] Continue to treat [ ] Resolved [ ] Ruled out diagnosis [ ] Other diagnosis [ ] Unable to determine In addition, please specify: Present on Admission (POA): [ XX ] Yes [ ] No [ ] Unable to determine For continuity of documentation, please document condition throughout progress notes and discharge summary. Thank You. CLINICAL INDICATORS - SIGNS / SYMPTOMS / LABS / RESULTS AND LOCATION IN MR: H&P: 08-01-19: ACUTE HYPOXIC AND HYPERCAPNIC RESPIRATORY FAILURE 2/2 COPD EXACERBATION, SEVERE SEPSIS 2/2 SUSPECTED PNEUMONIA, QUESTIONABLE PNEUMOCOCCAL. WBC: 08-01-19: 19.2 08-02-19: 18.2 PULSE: ER 08-01-19: 105, 102, 104, 96 RR: ER 08-01-19: 25, 24, 25, 26, 24, 22 RISK FACTORS / RESULTS AND LOCATION IN MR: H&P: 08-01-19: ACUTE HYPOXIC AND HYPERCAPNIC RESPIRATORY FAILURE 2/2 COPD EXACERBATION, SEVERE SEPSIS 2/2 SUSPECTED PNEUMONIA, QUESTIONABLE PNEUMOCOCCAL. TREATMENTS / RESULTS AND LOCATION IN MR: ER: 08-01-19: IVF NS H&P: 08-01-19: WE WILL CONTINUE STEROIDS. CONTINUE AZITHROMYCIN (This form is maintained as a part of the permanent medical record) 2014 [employer]. All Rights Reserved JESSICA [email or web address] Office: [phone] [facility] CENTERRojelio
--- NOTE | 2019-08-04 15:25 | PDOC.HOSPP ---
- Subjective Subjective: Seen and examined. Breathing is still tenuous. Patient asks me if she should be wearing her BiPAP more often, I recommended she wear if she is feeling short of breath on nasal cannula. Patient's cough is significant though there is not much productive phlegm. Patient is making slow improvements. Patient tells me that in the past few years her COPD has been so severe to the point that one year she was on steroids 300 out of 365 days. - Objective Vital Signs & Weight: Vital Signs (12 hours) Temp Pulse Pulse Resp BP Pulse Ox Pulse Ox 08/04/19 15:13 96.0 F L 08/04/19 13:09 69 20 97 08/04/19 11:11 96.6 F L 08/04/19 10:22 79 21 H 96 08/04/19 09:20 74 128/88 95 08/04/19 08:06 99 08/04/19 08:03 80 20 97 08/04/19 08:00 96 08/04/19 07:42 96.9 F L 08/04/19 04:13 77 16 96 Weight Weight 281 lb 3 oz Most Recent Monitor Data Heart Rate from ECG 65 NIBP 157/114 NIBP BP-Mean 128 Respiration from ECG 18 SpO2 98 I&O: 08/03/19 08/04/19 08/05/19 06:59 06:59 06:59 Intake Total 2228.5 3077 Output Total 1400 2600 Balance 828.5 477 Result Diagrams: 08/02/19 03:39 08/02/19 03:39 Additional Labs: Accuchecks 08/04/19 08/04/19 08/04/19 12:26 08:19 03:42 POC Glucose 182 H 148 H 150 H 08/04/19 08/03/19 08/03/19 00:01 20:47 16:09 POC Glucose 127 H 179 H 138 H Hospitalist ROS - Review of Systems All other systems reviewed; all pertinent +/- noted in HPI/Subj - Medication Medications: Active Medications Generic Name Dose Route Start Last Admin Trade Name Freq PRN Reason Stop Dose Admin Acetaminophen 650 mg 08/01/19 01:02 08/03/19 18:12 Tylenol PO 650 mg Q4H PRN Administration Headache/Fever/Mild Pain (1-3) Albuterol/Ipratropium 3 ml 08/03/19 13:00 08/04/19 13:09 Duoneb EZPAP 3 ml [id number] BALDOMERO Administration Aspirin 81 mg 08/02/19 09:00 08/04/19 09:33 Ecotrin PO 81 mg DAILY BALDOMERO Administration Atorvastatin Calcium 20 mg 08/01/19 21:00 08/03/19 20:46 Lipitor PO 20 mg HS BALDOMERO Administration Azithromycin 500 mg 08/03/19 21:00 08/03/19 20:47 Zithromax PO 500 mg 2100 BALDOMERO Administration Carvedilol 3.125 mg 08/03/19 17:00 08/04/19 09:33 Coreg PO 3.125 mg BID-WM BALDOMERO Administration Clonazepam 0.5 mg 08/01/19 09:15 08/04/19 09:55 Klonopin PO 0.5 mg BID PRN Administration Anxiety Docusate Sodium 100 mg 08/02/19 09:00 08/04/19 09:33 Colace PO 100 mg DAILY BALDOMERO Administration Duloxetine HCl 60 mg 08/01/19 21:00 08/04/19 09:33 Cymbalta PO 60 mg BID BALDOMERO Administration Enoxaparin Sodium 40 mg 08/01/19 09:00 08/04/19 09:32 Lovenox SC 40 mg 0900 BALDOMERO Administration Famotidine 20 mg 08/01/19 09:00 08/04/19 09:33 Pepcid PO 20 mg DAILY BALDOMERO Administration Guaifenesin 1,200 mg 08/03/19 21:00 08/04/19 09:32 Mucinex PO 1,200 mg Q12HR BALDOMERO Administration Sodium Chloride 1,000 mls @ 75 mls/hr 08/03/19 10:30 08/04/19 15:12 1/2 Normal Saline IV 1,000 mls .[id number] BALDOMERO Administration Insulin Human Regular 0 units 08/01/19 01:00 08/03/19 08:41 Humulin R SC 4 units .MODERATE SLIDING SC PRN Administration Moderate Correctional Scale Insulin Human Regular 0 units 08/01/19 01:00 08/02/19 00:07 Humulin R SC 2 units .BEDTIME SLIDING SC PRN Administration Bedtime Correctional Scale Methylprednisolone Sodium Succinate 20 mg 08/01/19 06:00 08/04/19 15:08 Solu-Medrol IVP 20 mg Q8HR BALDOMERO Administration Mometasone Furoate/Formoterol Fumar 2 puff 08/01/19 18:30 08/04/19 08:06 Dulera 100 Mcg/5 Mcg Inhaler INH 2 puff BID-RT BALDOMERO Administration Montelukast Sodium 10 mg 08/01/19 21:00 08/03/19 20:46 Singulair PO 10 mg QPM BALDOMERO Administration Sacubitril/Valsartan 1 tab 08/01/19 21:00 08/04/19 09:32 Entresto 49 Mg-51 Mg Tablet PO 1 tab BID BALDOMERO Administration Sterile Water 1 ml 08/01/19 01:15 08/01/19 05:19 Bacteriostatic Water FS 1 ml PRN PRN Administration RECONSTITUTION Tramadol HCl 50 mg 08/01/19 09:15 08/03/19 20:52 Ultram PO 50 mg TID PRN Administration Pain - Exam General Appearance: NAD, awake alert Eye: PERRL ENT: normocephalic atraumatic, moist mucosa Neck: supple, symmetric, no lymphadenopathy Heart: no murmur, no gallops, no rubs Respiratory: no rales, rhonchi, tachypneic, wheezes Respiratory - other findings: Deminished air movement secondary to body habitus Gastrointestinal: soft, non-tender, no guarding, no rigidity Extremities: 1+ LE edema Skin: no lesions, no rashes Neurological: cranial nerve grossly intact, no focal deficits Musculoskeletal: generalized weakness Psychiatric: normal affect, A&O x 3 Hosp A/P (1) COPD exacerbation Code(s): J44.1 - CHRONIC OBSTRUCTIVE PULMONARY DISEASE W (ACUTE) EXACERBATION Status: Resolved (2) Acute on chronic respiratory failure with hypoxia Code(s): J96.21 - ACUTE AND CHRONIC RESPIRATORY FAILURE WITH HYPOXIA Status: Resolved (3) COPD (chronic obstructive pulmonary disease) Status: Chronic (4) Chronic respiratory failure with hypoxia Code(s): J96.11 - CHRONIC RESPIRATORY FAILURE WITH HYPOXIA Status: Chronic (5) DM type 2 causing CKD stage 3 Code(s): E11.22 - TYPE 2 DIABETES MELLITUS W DIABETIC CHRONIC KIDNEY DISEASE; N18.3 - CHRONIC KIDNEY DISEASE, STAGE 3 (MODERATE) Status: Chronic (6) Dyslipidemia Code(s): E78.5 - HYPERLIPIDEMIA, UNSPECIFIED Status: Chronic (7) Hypertension Code(s): I10 - ESSENTIAL (PRIMARY) HYPERTENSION Status: Chronic (8) Leukocytosis Code(s): D72.829 - ELEVATED WHITE BLOOD CELL COUNT, UNSPECIFIED Status: Chronic (9) Morbid obesity with BMI of 40.0-44.9, adult Code(s): E66.01 - MORBID (SEVERE) OBESITY DUE TO EXCESS CALORIES; Z68.41 - BODY MASS INDEX (BMI) 40.0-44.9, ADULT Status: Chronic (10) ALEXANDER (obstructive sleep apnea) Code(s): G47.33 - OBSTRUCTIVE SLEEP APNEA (ADULT) (PEDIATRIC) Status: Chronic (11) Tobacco abuse Code(s): Z72.0 - TOBACCO USE Status: Resolved - Plan Plan: [facility] pulmonology consultation, recommendations appreciated IV steroids IV antibiotics small-volume nebulizers scheduled and as needed echocardiogram with reduced ejection fraction of 45% Cardiomyopathy regimen: -Entresto -Coreg - Will aid in BP control -Lasix continue other home medications as able blood pressure control blood sugar control Replace electrolytes as needed
[2019-08-04] MEDS: Montelukast Sodium 10 mg Tablet PO SCH (21:11)
[2019-08-04] MEDS: Atorvastatin Calcium 20 MG TAB PO SCH (21:11)
[2019-08-04] MEDS: Azithromycin 250 MG TAB PO SCH (21:12)
[2019-08-04] MEDS: Cyclobenzaprine 10 MG TAB PO PRN (21:16)
[2019-08-05] MEDS: methylPREDNISolone Sod Succ 40 MG VIAL IVP SCH ×3 (05:44→21:28)
[2019-08-05] MEDS: Sodium Chloride 0.45% 1,000 ML IV SCH ×2 (05:46→16:47)
[2019-08-05] MEDS: Mometasone/Formoterol 120 PUFF INHALER INH SCH ×2 (07:19→18:45)
[2019-08-05] MEDS: Enoxaparin Sodium 40 MG/0.4 ML SYRINGE SC SCH (08:36)
[2019-08-05] MEDS: Famotidine 20 MG TAB PO SCH (08:36)
[2019-08-05] MEDS: Acetaminophen 325 MG TAB PO PRN (08:36)
[2019-08-05] MEDS: Insulin Regular 300 UNITS/3 ML VIAL SC PRN (08:36)
[2019-08-05] MEDS: clonazePAM 0.5 MG TAB PO PRN ×2 (08:36→21:29)
[2019-08-05] MEDS: Aspirin 81 mg Enteric Coated Tablet PO SCH (08:36)
[2019-08-05] MEDS: DULoxetine 60 MG CAP PO SCH ×2 (08:37→21:30)
[2019-08-05] MEDS: guaiFENesin ER 600 MG TAB PO SCH ×2 (08:37→21:29)
[2019-08-05] MEDS: Docusate 100 MG CAP PO SCH (08:37)
[2019-08-05] MEDS: Carvedilol 3.125 MG TAB PO SCH ×2 (08:37→16:46)
[2019-08-05] MEDS: Sacubitril 49 MG/Valsartan 51 MG TABLET PO SCH ×2 (08:37→21:29)
--- NOTE | 2019-08-05 16:50 | PDOC.HOSPP ---
- Subjective Subjective: Seen and examined. Clinically improving. Cough is much less horse and barking in nature. Patient getting some brown phlegm up. Patient states that she feels like she is breathing much more easily. All questions answered in detail, patient happy with plan of care. - Objective Vital Signs & Weight: Vital Signs (12 hours) Temp Pulse Resp BP Pulse Ox 08/05/19 16:36 98.2 F 08/05/19 14:29 182/113 H 08/05/19 11:03 96.4 F L 08/05/19 10:40 81 22 H 94 L 08/05/19 07:56 97.6 F 08/05/19 07:29 98 08/05/19 07:20 97 08/05/19 07:18 82 18 97 Weight Weight 281 lb 5 oz Most Recent Monitor Data Heart Rate from ECG 64 NIBP 152/111 NIBP BP-Mean 124 Respiration from ECG 21 SpO2 94 I&O: 08/04/19 08/05/19 08/06/19 06:59 06:59 06:59 Intake Total 3077 1540 240 Output Total 2600 2875 Balance 477 -1335 240 Result Diagrams: 08/02/19 03:39 08/02/19 03:39 Additional Labs: Accuchecks 08/05/19 08/05/19 08/05/19 16:15 12:22 08:12 POC Glucose 119 H 135 H 163 H 08/05/19 08/05/19 08/04/19 04:15 00:19 20:31 POC Glucose 150 H 141 H 133 H Radiology Reviewed by me: Yes (CXR from admission, repeat in AM) Hospitalist ROS - Review of Systems All other systems reviewed; all pertinent +/- noted in HPI/Subj - Medication Medications: Active Medications Generic Name Dose Route Start Last Admin Trade Name Freq PRN Reason Stop Dose Admin Acetaminophen 650 mg 08/01/19 01:02 08/05/19 08:36 Tylenol PO 650 mg Q4H PRN Administration Headache/Fever/Mild Pain (1-3) Albuterol/Ipratropium 3 ml 08/03/19 13:00 08/05/19 14:53 Duoneb EZPAP Not Given C4CH-VN BALDOMERO Aspirin 81 mg 08/02/19 09:00 08/05/19 08:36 Ecotrin PO 81 mg DAILY BALODMERO Administration Atorvastatin Calcium 20 mg 08/01/19 21:00 08/04/19 21:11 Lipitor PO 20 mg HS BALDOMERO Administration Azithromycin 500 mg 08/03/19 21:00 08/04/19 21:12 Zithromax PO 500 mg 2100 BALDOMERO Administration Carvedilol 3.125 mg 08/03/19 17:00 08/05/19 08:37 Coreg PO 3.125 mg BID-WM BALDOMERO Administration Clonazepam 0.5 mg 08/01/19 09:15 08/05/19 08:36 Klonopin PO 0.5 mg BID PRN Administration Anxiety Clonidine 0.1 mg 08/01/19 01:04 08/05/19 14:29 Catapres PO 0.1 mg Q4H PRN Administration SBP Greater Than 180 Cyclobenzaprine HCl 10 mg 08/01/19 09:15 08/04/19 21:16 Flexeril PO 10 mg TID PRN Administration Muscle Spasm Docusate Sodium 100 mg 08/02/19 09:00 08/05/19 08:37 Colace PO 100 mg DAILY BALDOMERO Administration Duloxetine HCl 60 mg 08/01/19 21:00 08/05/19 08:37 Cymbalta PO 60 mg BID BALDOMERO Administration Enoxaparin Sodium 40 mg 08/01/19 09:00 08/05/19 08:36 Lovenox SC 40 mg 0900 BALDOMERO Administration Famotidine 20 mg 08/01/19 09:00 08/05/19 08:36 Pepcid PO 20 mg DAILY BALDOMERO Administration Guaifenesin 1,200 mg 08/03/19 21:00 08/05/19 08:37 Mucinex PO 1,200 mg Q12HR BALDOMERO Administration Sodium Chloride 1,000 mls @ 75 mls/hr 08/03/19 10:30 08/05/19 05:46 1/2 Normal Saline IV 1,000 mls .[id number] BALDOMERO Administration Insulin Human Regular 0 units 08/01/19 01:00 08/05/19 08:36 Humulin R SC 2 units .MODERATE SLIDING SC PRN Administration Moderate Correctional Scale Insulin Human Regular 0 units 08/01/19 01:00 08/02/19 00:07 Humulin R SC 2 units .BEDTIME SLIDING SC PRN Administration Bedtime Correctional Scale Methylprednisolone Sodium Succinate 20 mg 08/01/19 06:00 08/05/19 14:18 Solu-Medrol IVP 20 mg Q8HR BALDOMERO Administration Mometasone Furoate/Formoterol Fumar 2 puff 08/01/19 18:30 08/05/19 07:19 Dulera 100 Mcg/5 Mcg Inhaler INH 2 puff BID-RT BALDOMERO Administration Montelukast Sodium 10 mg 08/01/19 21:00 08/04/19 21:11 Singulair PO 10 mg QPM BALDOMERO Administration Sacubitril/Valsartan 1 tab 08/01/19 21:00 08/05/19 08:37 Entresto 49 Mg-51 Mg Tablet PO 1 tab BID BALDOMERO Administration Sterile Water 1 ml 08/01/19 01:15 08/01/19 05:19 Bacteriostatic Water FS 1 ml PRN PRN Administration RECONSTITUTION Tramadol HCl 50 mg 08/01/19 09:15 08/03/19 20:52 Ultram PO 50 mg TID PRN Administration Pain - Exam General Appearance: NAD, awake alert Eye: PERRL, anicteric sclera ENT: normocephalic atraumatic, moist mucosa Neck: supple, symmetric, no lymphadenopathy Heart: no murmur, no gallops, no rubs Respiratory: no rales, normal chest expansion, no tachypnea, rhonchi, wheezes Gastrointestinal: soft, non-tender, no guarding, no rigidity Gastrointestinal - other findings: Obese Extremities: no edema Skin: no lesions, no rashes Neurological: cranial nerve grossly intact, no focal deficits Musculoskeletal: generalized weakness Psychiatric: normal affect, A&O x 3 Hosp A/P (1) COPD exacerbation Code(s): J44.1 - CHRONIC OBSTRUCTIVE PULMONARY DISEASE W (ACUTE) EXACERBATION Status: Resolved (2) Acute on chronic respiratory failure with hypoxia Code(s): J96.21 - ACUTE AND CHRONIC RESPIRATORY FAILURE WITH HYPOXIA Status: Resolved (3) COPD (chronic obstructive pulmonary disease) Status: Chronic (4) Chronic respiratory failure with hypoxia Code(s): J96.11 - CHRONIC RESPIRATORY FAILURE WITH HYPOXIA Status: Chronic (5) DM type 2 causing CKD stage 3 Code(s): E11.22 - TYPE 2 DIABETES MELLITUS W DIABETIC CHRONIC KIDNEY DISEASE; N18.3 - CHRONIC KIDNEY DISEASE, STAGE 3 (MODERATE) Status: Chronic (6) Dyslipidemia Code(s): E78.5 - HYPERLIPIDEMIA, UNSPECIFIED Status: Chronic (7) Hypertension Code(s): I10 - ESSENTIAL (PRIMARY) HYPERTENSION Status: Chronic (8) Leukocytosis Code(s): D72.829 - ELEVATED WHITE BLOOD CELL COUNT, UNSPECIFIED Status: Chronic (9) Morbid obesity with BMI of 40.0-44.9, adult Code(s): E66.01 - MORBID (SEVERE) OBESITY DUE TO EXCESS CALORIES; Z68.41 - BODY MASS INDEX (BMI) 40.0-44.9, ADULT Status: Chronic (10) ALEXANDER (obstructive sleep apnea) Code(s): G47.33 - OBSTRUCTIVE SLEEP APNEA (ADULT) (PEDIATRIC) Status: Chronic (11) Tobacco abuse Code(s): Z72.0 - TOBACCO USE Status: Resolved - Plan Plan: [facility] pulmonology consultation, recommendations appreciated IV steroids IV antibiotics small-volume nebulizers scheduled and as needed echocardiogram with reduced ejection fraction of 45% Cardiomyopathy regimen: -Entresto -Coreg -Lasix Limit fluid intake to avoid CHF exacerbation continue other home medications as able blood pressure control blood sugar control Replace electrolytes as needed
--- NOTE | 2019-08-05 17:32 | PRG ---
DATE OF SERVICE: 08/05/2019 SUBJECTIVE: Dedra Amador says she is feeling better. Still had moved around much. She is afebrile. Blood pressures have been variable with most of them today that high diastolics. I would wonder how well her cough fits her. OBJECTIVE: VITAL SIGNS: Heart rate in the 60s. LUNGS: Distant with end-expiratory wheezes. HEART: Regular rhythm. ABDOMEN: Soft. LABORATORY DATA: White count 18.2, hemoglobin 11.5, and platelets 198. IMPRESSION: 1. Severe chronic obstructive pulmonary disease with deconditioning. 2. Life-threatening obesity. 3. History of two negative sleep studies in the past by her report. 4. Borderline anemia with an elevated mean corpuscular volume. PLAN: Increase her activity, decrease frequency of her nebs every 4 hours. She can transfer out of intermediate care unit. Job ID: [id number]
[2019-08-05] MEDS: Azithromycin 250 MG TAB PO SCH (21:29)
[2019-08-05] MEDS: Montelukast Sodium 10 mg Tablet PO SCH (21:29)
[2019-08-05] MEDS: Atorvastatin Calcium 20 MG TAB PO SCH (21:30)
[2019-08-05] MEDS: Cyclobenzaprine 10 MG TAB PO PRN (23:13)
[2019-08-06] MEDS: methylPREDNISolone Sod Succ 40 MG VIAL IVP SCH ×2 (05:03→14:30)
[2019-08-06] MEDS: Acetaminophen 325 MG TAB PO PRN ×2 (05:48→20:15)
[2019-08-06 06:10] LABS: Anion Gap 13 mmol/L (10-20); BUN (Urea Nitrogen) 24 mg/dL (9.8-20.1); Calc. Creatinine Clearance 113 mL/min (70-130); Calcium 9.2 mg/dL (7.8-10.44); Carbon Dioxide 27 mmol/L (23-31); Chloride 101 mmol/L (98-107); Estimated GFR-MDRD 59; Glucose 149 mg/dL (80-115); Potassium 4.2 mmol/L (3.5-5.1); Sodium 137 mmol/L (136-145)
[2019-08-06] MEDS: Mometasone/Formoterol 120 PUFF INHALER INH SCH ×2 (06:37→18:33)
[2019-08-06] MEDS: Aspirin 81 mg Enteric Coated Tablet PO SCH (08:17)
[2019-08-06] MEDS: DULoxetine 60 MG CAP PO SCH ×2 (08:17→20:14)
[2019-08-06] MEDS: guaiFENesin ER 600 MG TAB PO SCH ×2 (08:17→20:14)
[2019-08-06] MEDS: Carvedilol 3.125 MG TAB PO SCH ×2 (08:17→17:43)
[2019-08-06] MEDS: Sacubitril 49 MG/Valsartan 51 MG TABLET PO SCH ×2 (08:17→20:13)
[2019-08-06] MEDS: Famotidine 20 MG TAB PO SCH (08:18)
[2019-08-06] MEDS: Docusate 100 MG CAP PO SCH (08:18)
[2019-08-06] MEDS: clonazePAM 0.5 MG TAB PO PRN (08:22)
[2019-08-06] MEDS: Cyclobenzaprine 10 MG TAB PO PRN ×2 (08:22→20:14)
[2019-08-06] MEDS: Enoxaparin Sodium 40 MG/0.4 ML SYRINGE SC SCH (08:23)
--- NOTE | 2019-08-06 11:10 | RAD ---
CHEST 1 VIEW: Date: 08/06/19 Time: 0905 hours HISTORY: Shortness of breath. FINDINGS: Comparison made with exam of 07/31/19. The heart size is enlarged. There is a mass-like opacity in the right medial lung base, not definitel y seen on the previous exam. No pneumothoraces or large effusions are seen. The electronic device in the left chest is again seen. Further evaluation with CT scan would be helpful. POS: [facility]
[2019-08-06] MEDS ORDERED: ISOVUE-370 76%-LOCM 1 ML ONE (12:00)
--- NOTE | 2019-08-06 13:51 | PDOC.HOSPP ---
- Subjective Subjective: Seen and examined. Patient states she's feeling better and breathing better. Chest x-ray has changed with a masslike density, will add CT angiography of the chest to further evaluate. Overall patient is improving on maximal medical therapy on IV steroids, breathing treatments, and antibiotics. - Objective Vital Signs & Weight: Vital Signs (12 hours) Temp Pulse Resp BP Pulse Ox 08/06/19 10:30 68 16 97 08/06/19 08:00 97 08/06/19 07:44 98.0 F 61 20 154/91 H 97 08/06/19 06:41 94 L 08/06/19 06:40 64 16 94 L 08/06/19 06:37 54 L 20 94 L 08/06/19 04:00 98.7 F 65 18 143/89 H 98 Weight Weight 278 lb 14.156 oz Most Recent Monitor Data Heart Rate from ECG 77 NIBP 159/101 NIBP BP-Mean 120 Respiration from ECG 19 SpO2 93 I&O: 08/05/19 08/06/19 08/07/19 06:59 06:59 06:59 Intake Total 1540 1548 Output Total 2875 500 Balance -1335 1048 Result Diagrams: 08/02/19 03:39 08/06/19 04:33 Additional Labs: Accuchecks 08/06/19 08/06/19 08/06/19 11:52 04:21 00:23 POC Glucose 140 H 146 H 114 H 08/05/19 08/05/19 19:37 16:15 POC Glucose 238 H 119 H Radiology Reviewed by me: Yes (CXR) Hospitalist ROS - Review of Systems All other systems reviewed; all pertinent +/- noted in HPI/Subj - Medication Medications: Active Medications Generic Name Dose Route Start Last Admin Trade Name Freq PRN Reason Stop Dose Admin Acetaminophen 650 mg 08/01/19 01:02 08/06/19 05:48 Tylenol PO 650 mg Q4H PRN Administration Headache/Fever/Mild Pain (1-3) Albuterol/Ipratropium 3 ml 08/05/19 18:30 08/06/19 10:30 Duoneb EZPAP 3 ml [id number] BALDOMERO Administration Aspirin 81 mg 08/02/19 09:00 08/06/19 08:17 Ecotrin PO 81 mg DAILY BALDOMERO Administration Atorvastatin Calcium 20 mg 08/01/19 21:00 08/05/19 21:30 Lipitor PO 20 mg HS BALDOMERO Administration Azithromycin 500 mg 08/03/19 21:00 08/05/19 21:29 Zithromax PO 500 mg 2100 BALDOMERO Administration Carvedilol 3.125 mg 08/03/19 17:00 08/06/19 08:17 Coreg PO 3.125 mg BID-WM BALDOMERO Administration Clonazepam 0.5 mg 08/01/19 09:15 08/06/19 08:22 Klonopin PO 0.5 mg BID PRN Administration Anxiety Clonidine 0.1 mg 08/01/19 01:04 08/05/19 14:29 Catapres PO 0.1 mg Q4H PRN Administration SBP Greater Than 180 Cyclobenzaprine HCl 10 mg 08/01/19 09:15 08/06/19 08:22 Flexeril PO 10 mg TID PRN Administration Muscle Spasm Docusate Sodium 100 mg 08/02/19 09:00 08/06/19 08:18 Colace PO 100 mg DAILY BALDOMERO Administration Duloxetine HCl 60 mg 08/01/19 21:00 08/06/19 08:17 Cymbalta PO 60 mg BID BALDOMERO Administration Enoxaparin Sodium 40 mg 08/01/19 09:00 08/06/19 08:23 Lovenox SC 40 mg 0900 BALDOMERO Administration Famotidine 20 mg 08/01/19 09:00 08/06/19 08:18 Pepcid PO 20 mg DAILY BALDOMERO Administration Guaifenesin 1,200 mg 08/03/19 21:00 08/06/19 08:17 Mucinex PO 1,200 mg Q12HR BALDOMERO Administration Insulin Human Regular 0 units 08/01/19 01:00 08/05/19 08:36 Humulin R SC 2 units .MODERATE SLIDING SC PRN Administration Moderate Correctional Scale Insulin Human Regular 0 units 08/01/19 01:00 08/02/19 00:07 Humulin R SC 2 units .BEDTIME SLIDING SC PRN Administration Bedtime Correctional Scale Methylprednisolone Sodium Succinate 20 mg 08/01/19 06:00 08/06/19 05:03 Solu-Medrol IVP 20 mg Q8HR BALDOMERO Administration Mometasone Furoate/Formoterol Fumar 2 puff 08/01/19 18:30 08/06/19 06:37 Dulera 100 Mcg/5 Mcg Inhaler INH 2 puff BID-RT BALDOMERO Administration Montelukast Sodium 10 mg 08/01/19 21:00 08/05/19 21:29 Singulair PO 10 mg QPM BALDOMERO Administration Sacubitril/Valsartan 1 tab 08/01/19 21:00 08/06/19 08:17 Entresto 49 Mg-51 Mg Tablet PO 1 tab BID BALDOMERO Administration Sodium Chloride 10 ml 08/01/19 01:02 08/06/19 08:23 Flush - Normal Saline IVF 10 ml PRN PRN Administration Saline Flush Sterile Water 1 ml 08/01/19 01:15 08/01/19 05:19 Bacteriostatic Water FS 1 ml PRN PRN Administration RECONSTITUTION Tramadol HCl 50 mg 08/01/19 09:15 08/03/19 20:52 Ultram PO 50 mg TID PRN Administration Pain - Exam General Appearance: NAD, awake alert Eye: PERRL, anicteric sclera ENT: normocephalic atraumatic, moist mucosa Neck: supple, symmetric, no lymphadenopathy Heart: no murmur, no gallops, no rubs Respiratory: no rales, no tachypnea, rhonchi, wheezes Respiratory - other findings: Decreased pulm excursion secondary to body habitus Gastrointestinal: soft, non-tender, non-distended, no guarding, no rigidity Extremities: 1+ LE edema Skin: no lesions, no rashes Neurological: cranial nerve grossly intact, no focal deficits Musculoskeletal: generalized weakness Psychiatric: normal affect, A&O x 3 Hosp A/P (1) COPD exacerbation Code(s): J44.1 - CHRONIC OBSTRUCTIVE PULMONARY DISEASE W (ACUTE) EXACERBATION Status: Resolved (2) Acute on chronic respiratory failure with hypoxia Code(s): J96.21 - ACUTE AND CHRONIC RESPIRATORY FAILURE WITH HYPOXIA Status: Resolved (3) COPD (chronic obstructive pulmonary disease) Status: Chronic (4) Chronic respiratory failure with hypoxia Code(s): J96.11 - CHRONIC RESPIRATORY FAILURE WITH HYPOXIA Status: Chronic (5) DM type 2 causing CKD stage 3 Code(s): E11.22 - TYPE 2 DIABETES MELLITUS W DIABETIC CHRONIC KIDNEY DISEASE; N18.3 - CHRONIC KIDNEY DISEASE, STAGE 3 (MODERATE) Status: Chronic (6) Dyslipidemia Code(s): E78.5 - HYPERLIPIDEMIA, UNSPECIFIED Status: Chronic (7) Hypertension Code(s): I10 - ESSENTIAL (PRIMARY) HYPERTENSION Status: Chronic (8) Leukocytosis Code(s): D72.829 - ELEVATED WHITE BLOOD CELL COUNT, UNSPECIFIED Status: Chronic (9) Morbid obesity with BMI of 40.0-44.9, adult Code(s): E66.01 - MORBID (SEVERE) OBESITY DUE TO EXCESS CALORIES; Z68.41 - BODY MASS INDEX (BMI) 40.0-44.9, ADULT Status: Chronic (10) ALEXANDER (obstructive sleep apnea) Code(s): G47.33 - OBSTRUCTIVE SLEEP APNEA (ADULT) (PEDIATRIC) Status: Chronic (11) Tobacco abuse Code(s): Z72.0 - TOBACCO USE Status: Resolved - Plan Plan: Medical unit pulmonology consultation, recommendations appreciated CXR with right middle lobe hazy opacity CTA chest to further evaluate, will give IV fluids to flush renal system with contrast load IV steroids IV antibiotics small-volume nebulizers scheduled and as needed echocardiogram with reduced ejection fraction of 45% Cardiomyopathy regimen: -Entresto -Coreg -Lasix Limit fluid intake to avoid CHF exacerbation continue other home medications as able blood pressure control blood sugar control Replace electrolytes as needed
--- NOTE | 2019-08-06 15:47 | CT ---
.CT PULMONARY ANGIOGRAM WITH IV CONTRAST AND 3D POST PROCESSING: HISTORY: Shortness of breath, chest pain and palpitations. COMPARISON: 02/22/2018 FINDINGS: There is good contrast opacification in the pulmonary arterial vasculature without filling defects to suggest pulmonary embolism. There are vascular calcifications without evidence of aneurysmal dilatat ion of the thoracic aorta. The thoracic aorta is ectatic. No pericardial or right pleural effusions are seen. There is a tiny left pleural effusion. There are dependent changes in the lung bases, left greater than right. Upper abdominal tomograms demonstrate changes of cholecystectomy. There are degenerative changes in t he spine. IMPRESSION: No CT evidence of pulmonary embolism. POS: [facility]
--- NOTE | 2019-08-06 15:50 | PRG ---
DATE OF SERVICE: 08/06/2019 SUBJECTIVE: Dedra Amador says she is feeling pretty good. OBJECTIVE: VITAL SIGNS: She is afebrile, heart rate 68, respiratory rate 16, oximetry is 97% on 2 L cannula, blood pressure 154/91. LUNGS: Clear. HEART: Regular rhythm. ABDOMEN: Soft. There is haziness at the right base and I suspect it is secondary to mucus plugging. IMPRESSION: 1. Chronic obstructive pulmonary disease exacerbation, slowly improving. 2. Obesity with deconditioning. 3. Tobacco use up until this admission. 4. Hypertension. 5. Diabetes. 6. Coronary artery disease. 7. History of deep venous thrombosis. 8. Infrarenal abdominal aortic aneurysm. 9. Lipid disorder. 10. History of cerebrovascular accident. 11. Diastolic heart failure. 12. Multiple drug intolerance. PLAN: Hopefully, she can increase her activity level. She has probably reached a point where we can switch her off IV Medrol to prednisone. She is stable for discharge in the next 24 to 48 hours if she agrees. Job ID: [id number]
[2019-08-06] MEDS: 1/2 NS w/KCL 20 mEq 1,000 ML IV SCH (17:38)
[2019-08-06] MEDS: Insulin Regular 300 UNITS/3 ML VIAL SC PRN (17:43)
[2019-08-06] MEDS: Montelukast Sodium 10 mg Tablet PO SCH (20:13)
[2019-08-06] MEDS: Azithromycin 250 MG TAB PO SCH (20:14)
[2019-08-06] MEDS: Atorvastatin Calcium 20 MG TAB PO SCH (20:14)
[2019-08-06] MEDS: traMADol HCl 50 MG TAB PO PRN (20:15)
[2019-08-07] MEDS: 1/2 NS w/KCL 20 mEq 1,000 ML IV SCH ×3 (05:52→22:04)
[2019-08-07] MEDS: Mometasone/Formoterol 120 PUFF INHALER INH SCH ×2 (06:37→18:50)
[2019-08-07] MEDS: predniSONE 20 MG TAB PO SCH (08:21)
[2019-08-07] MEDS: Docusate 100 MG CAP PO SCH (08:21)
[2019-08-07] MEDS: Carvedilol 3.125 MG TAB PO SCH ×2 (08:21→17:53)
[2019-08-07] MEDS: Aspirin 81 mg Enteric Coated Tablet PO SCH (08:21)
[2019-08-07] MEDS: Famotidine 20 MG TAB PO SCH (08:21)
[2019-08-07] MEDS: guaiFENesin ER 600 MG TAB PO SCH ×2 (08:21→20:42)
[2019-08-07] MEDS: Enoxaparin Sodium 40 MG/0.4 ML SYRINGE SC SCH (08:22)
[2019-08-07] MEDS: Sacubitril 49 MG/Valsartan 51 MG TABLET PO SCH ×2 (08:23→20:42)
[2019-08-07] MEDS: traMADol HCl 50 MG TAB PO PRN ×2 (08:27→20:43)
[2019-08-07] MEDS: DULoxetine 60 MG CAP PO SCH ×2 (08:27→20:42)
--- NOTE | 2019-08-07 16:14 | PDOC.HOSPP ---
- Subjective Subjective: Seen and examined. Patient states that she is feeling much better. Breathing is more easy, back to her baseline O2 requirements on nasal cannula. Patient's pulmonary exam is also improving. If patient continues to improve likely home tomorrow morning. Will transition to oral steroids. - Objective Vital Signs & Weight: Vital Signs (12 hours) Temp Pulse Resp BP Pulse Ox 08/07/19 10:17 75 16 95 08/07/19 08:00 98 08/07/19 07:18 97.8 F 62 20 129/74 98 08/07/19 06:33 71 16 98 Weight Weight 280 lb 13.903 oz Most Recent Monitor Data Heart Rate from ECG 77 NIBP 159/101 NIBP BP-Mean 120 Respiration from ECG 19 SpO2 93 I&O: 08/06/19 08/07/19 08/08/19 06:59 06:59 06:59 Intake Total 1548 2300 960 Output Total 500 Balance 1048 2300 960 Result Diagrams: 08/02/19 03:39 08/06/19 04:33 Additional Labs: Accuchecks 08/07/19 08/07/19 08/06/19 11:58 04:49 23:55 POC Glucose 120 H 100 100 08/06/19 08/06/19 19:17 16:59 POC Glucose 162 H 190 H Hospitalist ROS - Review of Systems All other systems reviewed; all pertinent +/- noted in HPI/Subj - Medication Medications: Active Medications Generic Name Dose Route Start Last Admin Trade Name Freq PRN Reason Stop Dose Admin Acetaminophen 650 mg 08/01/19 01:02 08/06/19 20:15 Tylenol PO 650 mg Q4H PRN Administration Headache/Fever/Mild Pain (1-3) Albuterol/Ipratropium 3 ml 08/05/19 18:30 08/07/19 13:42 Duoneb EZPAP 3 ml [id number] BALDOMERO Administration Aspirin 81 mg 08/02/19 09:00 08/07/19 08:21 Ecotrin PO 81 mg DAILY BALDOMERO Administration Atorvastatin Calcium 20 mg 08/01/19 21:00 08/06/19 20:14 Lipitor PO 20 mg HS BALDOMERO Administration Azithromycin 500 mg 08/03/19 21:00 08/06/19 20:14 Zithromax PO 500 mg 2100 BALDOMERO Administration Carvedilol 3.125 mg 08/03/19 17:00 08/07/19 08:21 Coreg PO 3.125 mg BID-WM BALDOMERO Administration Clonazepam 0.5 mg 08/01/19 09:15 08/06/19 08:22 Klonopin PO 0.5 mg BID PRN Administration Anxiety Clonidine 0.1 mg 08/01/19 01:04 08/05/19 14:29 Catapres PO 0.1 mg Q4H PRN Administration SBP Greater Than 180 Cyclobenzaprine HCl 10 mg 08/01/19 09:15 08/06/19 20:14 Flexeril PO 10 mg TID PRN Administration Muscle Spasm Docusate Sodium 100 mg 08/02/19 09:00 08/07/19 08:21 Colace PO 100 mg DAILY BALDOMERO Administration Duloxetine HCl 60 mg 08/01/19 21:00 08/07/19 08:27 Cymbalta PO 60 mg BID BALDOMERO Administration Enoxaparin Sodium 40 mg 08/01/19 09:00 08/07/19 08:22 Lovenox SC 40 mg 0900 BALDOMERO Administration Famotidine 20 mg 08/01/19 09:00 08/07/19 08:21 Pepcid PO 20 mg DAILY BALDOMERO Administration Guaifenesin 1,200 mg 08/03/19 21:00 08/07/19 08:21 Mucinex PO 1,200 mg Q12HR BALDOMERO Administration Potassium Chloride/Sodium Chloride 1,000 mls @ 75 mls/hr 08/06/19 14:00 08/07 08:34 1/2 Ns W/Kcl 20 Meq IV 1,000 mls .[id number] BALDOMERO Administration Insulin Human Regular 0 units 08/01/19 01:00 08/06/19 17:43 Humulin R SC 2 units .MODERATE SLIDING SC PRN Administration Moderate Correctional Scale Insulin Human Regular 0 units 08/01/19 01:00 08/02/19 00:07 Humulin R SC 2 units .BEDTIME SLIDING SC PRN Administration Bedtime Correctional Scale Mometasone Furoate/Formoterol Fumar 2 puff 08/01/19 18:30 08/07/19 06:37 Dulera 100 Mcg/5 Mcg Inhaler INH 2 puff BID-RT BALDOMERO Administration Montelukast Sodium 10 mg 08/01/19 21:00 08/06/19 20:13 Singulair PO 10 mg QPM BALDOMERO Administration Prednisone 40 mg 08/07/19 08:00 08/07/19 08:21 Prednisone PO 40 mg QAM-WM BALDOMERO Administration Sacubitril/Valsartan 1 tab 08/01/19 21:00 08/07/19 08:23 Entresto 49 Mg-51 Mg Tablet PO 1 tab BID BALDOMERO Administration Sodium Chloride 10 ml 08/01/19 01:02 08/06/19 08:23 Flush - Normal Saline IVF 10 ml PRN PRN Administration Saline Flush Sterile Water 1 ml 08/01/19 01:15 08/01/19 05:19 Bacteriostatic Water FS 1 ml PRN PRN Administration RECONSTITUTION Tramadol HCl 50 mg 08/01/19 09:15 08/07/19 08:27 Ultram PO 50 mg TID PRN Administration Pain - Exam General Appearance: NAD, awake alert Eye: PERRL, anicteric sclera ENT: normocephalic atraumatic, moist mucosa Neck: supple, symmetric, no lymphadenopathy Heart: no murmur, no gallops, no rubs Respiratory: no rales, normal chest expansion, no tachypnea, rhonchi, wheezes ( Significantly improved) Gastrointestinal: soft, non-tender, non-distended, no palpable masses, no guarding, no rigidity Extremities: 1+ LE edema Skin: no lesions, no rashes Neurological: cranial nerve grossly intact, normal sensation to touch, no focal deficits Musculoskeletal: generalized weakness Psychiatric: normal affect, A&O x 3 Hosp A/P (1) COPD exacerbation Code(s): J44.1 - CHRONIC OBSTRUCTIVE PULMONARY DISEASE W (ACUTE) EXACERBATION Status: Resolved (2) Acute on chronic respiratory failure with hypoxia Code(s): J96.21 - ACUTE AND CHRONIC RESPIRATORY FAILURE WITH HYPOXIA Status: Resolved (3) COPD (chronic obstructive pulmonary disease) Status: Chronic (4) Chronic respiratory failure with hypoxia Code(s): J96.11 - CHRONIC RESPIRATORY FAILURE WITH HYPOXIA Status: Chronic (5) DM type 2 causing CKD stage 3 Code(s): E11.22 - TYPE 2 DIABETES MELLITUS W DIABETIC CHRONIC KIDNEY DISEASE; N18.3 - CHRONIC KIDNEY DISEASE, STAGE 3 (MODERATE) Status: Chronic (6) Dyslipidemia Code(s): E78.5 - HYPERLIPIDEMIA, UNSPECIFIED Status: Chronic (7) Hypertension Code(s): I10 - ESSENTIAL (PRIMARY) HYPERTENSION Status: Chronic (8) Leukocytosis Code(s): D72.829 - ELEVATED WHITE BLOOD CELL COUNT, UNSPECIFIED Status: Chronic (9) Morbid obesity with BMI of 40.0-44.9, adult Code(s): E66.01 - MORBID (SEVERE) OBESITY DUE TO EXCESS CALORIES; Z68.41 - BODY MASS INDEX (BMI) 40.0-44.9, ADULT Status: Chronic (10) ALEXANDER (obstructive sleep apnea) Code(s): G47.33 - OBSTRUCTIVE SLEEP APNEA (ADULT) (PEDIATRIC) Status: Chronic (11) Tobacco abuse Code(s): Z72.0 - TOBACCO USE Status: Resolved - Plan Plan: Medical unit, plan for D/c in the next 24-48 hours if continues to improve pulmonology consultation, recommendations appreciated CTA chest - no mass, PE, or focal PNA CXR with right middle lobe hazy opacity - not seen on CTA chest IV steroids, transition or oral IV antibiotics small-volume nebulizers scheduled and as needed echocardiogram with reduced ejection fraction of 45% Cardiomyopathy regimen: -Entresto -Coreg -Lasix Limit fluid intake to avoid CHF exacerbation continue other home medications as able blood pressure control blood sugar control Replace electrolytes as needed
[2019-08-07] MEDS: Insulin Regular 300 UNITS/3 ML VIAL SC PRN (17:53)
--- NOTE | 2019-08-07 20:21 | PRG ---
DATE OF SERVICE: 08/07/2019 SUBJECTIVE: Ms. Amador today. She is putting on BiPAP. I asked her about the BiPAP. She said she just likes sleeping with it. She again emphasizes that she has had two negative sleep studies in the past. She has absolutely no wheezes on exam. She says she is still coughing up some clear mucus. OBJECTIVE: VITAL SIGNS: She is afebrile. Heart rates in the 60s to 70s, respiratory rates in the teens, oximetry is 95% on 3 L, blood pressure 129/74. LUNGS: Clear. HEART: Regular rhythm. ABDOMEN: Soft. IMPRESSION: 1. Chronic obstructive pulmonary disease exacerbation. 2. Life-threatening obesity. 3. Obesity hypoventilation versus CO2 retention secondary to advanced chronic obstructive pulmonary disease. She follow up with me in a month. I felt she was stable for discharge today. She wants to stay one more day. I will see her in 3 to 4 weeks. It will be her responsibility to make an appointment to be seen in my office within the next month. Job ID: [id number]
[2019-08-07] MEDS: Cyclobenzaprine 10 MG TAB PO PRN (20:42)
[2019-08-07] MEDS: Azithromycin 250 MG TAB PO SCH (20:42)
[2019-08-07] MEDS: Atorvastatin Calcium 20 MG TAB PO SCH (20:43)
[2019-08-07] MEDS: Montelukast Sodium 10 mg Tablet PO SCH (20:43)
[2019-08-07] MEDS: Acetaminophen 325 MG TAB PO PRN (20:43)
[2019-08-08] MEDS: Mometasone/Formoterol 120 PUFF INHALER INH SCH ×2 (06:57→21:57)
[2019-08-08] MEDS: clonazePAM 0.5 MG TAB PO PRN (08:30)
[2019-08-08] MEDS: Docusate 100 MG CAP PO SCH (08:30)
[2019-08-08] MEDS: Cyclobenzaprine 10 MG TAB PO PRN ×2 (08:30→20:09)
[2019-08-08] MEDS: Sacubitril 49 MG/Valsartan 51 MG TABLET PO SCH ×2 (08:30→20:09)
[2019-08-08] MEDS: Carvedilol 3.125 MG TAB PO SCH ×2 (08:31→17:05)
[2019-08-08] MEDS: predniSONE 20 MG TAB PO SCH (08:31)
[2019-08-08] MEDS: Aspirin 81 mg Enteric Coated Tablet PO SCH (08:31)
[2019-08-08] MEDS: Famotidine 20 MG TAB PO SCH (08:31)
[2019-08-08] MEDS: guaiFENesin ER 600 MG TAB PO SCH ×2 (08:31→20:10)
[2019-08-08] MEDS: DULoxetine 60 MG CAP PO SCH ×2 (08:34→20:09)
[2019-08-08] MEDS: Enoxaparin Sodium 40 MG/0.4 ML SYRINGE SC SCH (08:35)
--- NOTE | 2019-08-08 15:19 | PDOC.HOSPP ---
- Subjective Subjective: Seen and examined. Clinically improving. Working with ST well. Breathing better , still with wheezing and rhonchi. Transitioning to oral steroids. Will plan for D/c in the AM if continues to improve. Patient still feels like she's struggling to breath, not yet back to her baseline. - Objective Vital Signs & Weight: Vital Signs (12 hours) Temp Pulse Resp BP Pulse Ox 08/08/19 14:34 74 20 94 L 08/08/19 11:39 75 20 08/08/19 08:00 95 08/08/19 07:14 98.0 F 71 20 143/91 H 95 08/08/19 06:56 96 08/08/19 06:55 71 20 96 Weight Weight 278 lb 10.629 oz Most Recent Monitor Data Heart Rate from ECG 77 NIBP 159/101 NIBP BP-Mean 120 Respiration from ECG 19 SpO2 93 I&O: 08/07/19 08/08/19 08/09/19 06:59 06:59 06:59 Intake Total 2300 2840 Balance 2300 2840 Result Diagrams: 08/02/19 03:39 08/06/19 04:33 Additional Labs: Accuchecks 08/08/19 08/08/19 08/07/19 11:24 04:33 19:09 POC Glucose 141 H 88 152 H 08/07/19 16:16 POC Glucose 158 H Radiology Reviewed by me: Yes Hospitalist ROS - Review of Systems All other systems reviewed; all pertinent +/- noted in HPI/Subj - Medication Medications: Active Medications Generic Name Dose Route Start Last Admin Trade Name Freq PRN Reason Stop Dose Admin Acetaminophen 650 mg 08/01/19 01:02 08/07/19 20:43 Tylenol PO 650 mg Q4H PRN Administration Headache/Fever/Mild Pain (1-3) Albuterol/Ipratropium 3 ml 08/05/19 18:30 08/08/19 14:34 Duoneb EZPAP 3 ml [id number] BALDOMERO Administration Aspirin 81 mg 08/02/19 09:00 08/08/19 08:31 Ecotrin PO 81 mg DAILY BALDOMERO Administration Atorvastatin Calcium 20 mg 08/01/19 21:00 08/07/19 20:43 Lipitor PO 20 mg HS BALDOMERO Administration Azithromycin 500 mg 08/03/19 21:00 08/07/19 20:42 Zithromax PO 500 mg 2100 BALDOMERO Administration Carvedilol 3.125 mg 08/03/19 17:00 08/08/19 08:31 Coreg PO 3.125 mg BID-WM BALDOMERO Administration Clonazepam 0.5 mg 08/01/19 09:15 08/08/19 08:30 Klonopin PO 0.5 mg BID PRN Administration Anxiety Clonidine 0.1 mg 08/01/19 01:04 08/05/19 14:29 Catapres PO 0.1 mg Q4H PRN Administration SBP Greater Than 180 Cyclobenzaprine HCl 10 mg 08/01/19 09:15 08/08/19 08:30 Flexeril PO 10 mg TID PRN Administration Muscle Spasm Docusate Sodium 100 mg 08/02/19 09:00 08/08/19 08:30 Colace PO 100 mg DAILY BALDOMERO Administration Duloxetine HCl 60 mg 08/01/19 21:00 08/08/19 08:34 Cymbalta PO 60 mg BID BALDOMERO Administration Enoxaparin Sodium 40 mg 08/01/19 09:00 08/08/19 08:35 Lovenox SC 40 mg 0900 BALDOMERO Administration Famotidine 20 mg 08/01/19 09:00 08/08/19 08:31 Pepcid PO 20 mg DAILY BALDOMERO Administration Guaifenesin 1,200 mg 08/03/19 21:00 08/08/19 08:31 Mucinex PO 1,200 mg Q12HR BALDOMERO Administration Potassium Chloride/Sodium Chloride 1,000 mls @ 75 mls/hr 08/06/19 14:00 08/07 22:04 1/2 Ns W/Kcl 20 Meq IV 1,000 mls .[id number] BALDOMERO Administration Insulin Human Regular 0 units 08/01/19 01:00 08/07/19 17:53 Humulin R SC 2 units .MODERATE SLIDING SC PRN Administration Moderate Correctional Scale Insulin Human Regular 0 units 08/01/19 01:00 08/02/19 00:07 Humulin R SC 2 units .BEDTIME SLIDING SC PRN Administration Bedtime Correctional Scale Mometasone Furoate/Formoterol Fumar 2 puff 08/01/19 18:30 08/08/19 06:57 Dulera 100 Mcg/5 Mcg Inhaler INH 2 puff BID-RT BALDOMERO Administration Montelukast Sodium 10 mg 08/01/19 21:00 08/07/19 20:43 Singulair PO 10 mg QPM BALDOMERO Administration Prednisone 40 mg 08/07/19 08:00 08/08/19 08:31 Prednisone PO 40 mg QAM-WM BALDOMERO Administration Sacubitril/Valsartan 1 tab 08/01/19 21:00 08/08/19 08:30 Entresto 49 Mg-51 Mg Tablet PO 1 tab BID BALDOMERO Administration Senna/Docusate Sodium 2 tab 08/01/19 01:02 08/07/19 20:42 Senokot S PO 2 tab BIDPRN PRN Administration Constipation Sodium Chloride 10 ml 08/01/19 01:02 08/06/19 08:23 Flush - Normal Saline IVF 10 ml PRN PRN Administration Saline Flush Sterile Water 1 ml 08/01/19 01:15 08/01/19 05:19 Bacteriostatic Water FS 1 ml PRN PRN Administration RECONSTITUTION Tramadol HCl 50 mg 08/01/19 09:15 08/07/19 20:43 Ultram PO 50 mg TID PRN Administration Pain - Exam General Appearance: NAD, awake alert Eye: anicteric sclera ENT: normocephalic atraumatic, moist mucosa Neck: symmetric, no lymphadenopathy Heart: no murmur, no gallops, no rubs Respiratory: no rales, normal chest expansion, no tachypnea, rhonchi, wheezes Gastrointestinal: soft, non-tender, non-distended, no guarding, no rigidity Extremities: 1+ LE edema Skin: no lesions, no rashes Neurological: cranial nerve grossly intact, normal sensation to touch, no focal deficits Musculoskeletal: generalized weakness Psychiatric: normal affect, A&O x 3 Hosp A/P (1) COPD exacerbation Code(s): J44.1 - CHRONIC OBSTRUCTIVE PULMONARY DISEASE W (ACUTE) EXACERBATION Status: Resolved (2) Acute on chronic respiratory failure with hypoxia Code(s): J96.21 - ACUTE AND CHRONIC RESPIRATORY FAILURE WITH HYPOXIA Status: Resolved (3) COPD (chronic obstructive pulmonary disease) Status: Chronic (4) Chronic respiratory failure with hypoxia Code(s): J96.11 - CHRONIC RESPIRATORY FAILURE WITH HYPOXIA Status: Chronic (5) DM type 2 causing CKD stage 3 Code(s): E11.22 - TYPE 2 DIABETES MELLITUS W DIABETIC CHRONIC KIDNEY DISEASE; N18.3 - CHRONIC KIDNEY DISEASE, STAGE 3 (MODERATE) Status: Chronic (6) Dyslipidemia Code(s): E78.5 - HYPERLIPIDEMIA, UNSPECIFIED Status: Chronic (7) Hypertension Code(s): I10 - ESSENTIAL (PRIMARY) HYPERTENSION Status: Chronic (8) Leukocytosis Code(s): D72.829 - ELEVATED WHITE BLOOD CELL COUNT, UNSPECIFIED Status: Chronic (9) Morbid obesity with BMI of 40.0-44.9, adult Code(s): E66.01 - MORBID (SEVERE) OBESITY DUE TO EXCESS CALORIES; Z68.41 - BODY MASS INDEX (BMI) 40.0-44.9, ADULT Status: Chronic (10) ALEXANDER (obstructive sleep apnea) Code(s): G47.33 - OBSTRUCTIVE SLEEP APNEA (ADULT) (PEDIATRIC) Status: Chronic (11) Tobacco abuse Code(s): Z72.0 - TOBACCO USE Status: Resolved - Plan Plan: Medical unit, plan for D/c in the next 24-48 hours if continues to improve pulmonology consultation, recommendations appreciated CTA chest - no mass, PE, or focal PNA CXR with right middle lobe hazy opacity - not seen on CTA chest IV steroids, transitioned or oral IV antibiotics small-volume nebulizers scheduled and as needed echocardiogram with reduced ejection fraction of 45% Cardiomyopathy regimen: -Entresto -Coreg -Lasix Limit fluid intake to avoid CHF exacerbation continue other home medications as able blood pressure control blood sugar control Replace electrolytes as needed
[2019-08-08] MEDS: Acetaminophen 325 MG TAB PO PRN (20:09)
[2019-08-08] MEDS: Montelukast Sodium 10 mg Tablet PO SCH (20:09)
[2019-08-08] MEDS: Azithromycin 250 MG TAB PO SCH (20:10)
[2019-08-08] MEDS: Atorvastatin Calcium 20 MG TAB PO SCH (20:10)
[2019-08-09] MEDS: Mometasone/Formoterol 120 PUFF INHALER INH SCH ×2 (06:39→18:01)
[2019-08-09] MEDS: predniSONE 20 MG TAB PO SCH (08:39)
[2019-08-09] MEDS: Carvedilol 3.125 MG TAB PO SCH ×2 (08:39→16:05)
[2019-08-09] MEDS: Famotidine 20 MG TAB PO SCH (08:39)
[2019-08-09] MEDS: Docusate 100 MG CAP PO SCH (08:40)
[2019-08-09] MEDS: DULoxetine 60 MG CAP PO SCH ×2 (08:40→20:15)
[2019-08-09] MEDS: Sacubitril 49 MG/Valsartan 51 MG TABLET PO SCH ×2 (08:40→20:15)
[2019-08-09] MEDS: Aspirin 81 mg Enteric Coated Tablet PO SCH (08:40)
[2019-08-09] MEDS: guaiFENesin ER 600 MG TAB PO SCH ×2 (08:40→20:15)
[2019-08-09] MEDS: Enoxaparin Sodium 40 MG/0.4 ML SYRINGE SC SCH (08:40)
[2019-08-09] MEDS: clonazePAM 0.5 MG TAB PO PRN ×2 (08:47→20:20)
--- NOTE | 2019-08-09 15:20 | PDOC.HOSPP ---
- Subjective Subjective: Seen and examined. Patient was transition to oral steroids is a trial for going home. Patient's breathing is significantly worse today. Cough though she is not getting much phlegm up. The phlegm she is getting up is light brown in color. Patient not moving around much only walking to and from the commode. Will ask PT and OT evaluate the patient. May need home healthcare versus assisted facility placement for a short course to regain her strength and independence. - Objective Vital Signs & Weight: Vital Signs (12 hours) Temp Pulse Resp BP Pulse Ox 08/09/19 14:19 80 16 08/09/19 11:51 98 F 52 L 22 H 134/79 94 L 08/09/19 10:56 80 16 08/09/19 08:53 96 08/09/19 07:19 98.5 F 76 19 149/94 H 96 08/09/19 06:39 76 16 Weight Weight 276 lb 7.355 oz Most Recent Monitor Data Heart Rate from ECG 77 NIBP 159/101 NIBP BP-Mean 120 Respiration from ECG 19 SpO2 93 I&O: 08/08/19 08/09/19 08/10/19 06:59 06:59 05:59 Intake Total 2840 1800 Balance 2840 1800 Result Diagrams: 08/02/19 03:39 08/06/19 04:33 Additional Labs: Accuchecks 08/09/19 08/08/19 08/08/19 05:13 20:10 16:16 POC Glucose 107 130 H 191 H Radiology Reviewed by me: Yes Hospitalist ROS - Review of Systems All other systems reviewed; all pertinent +/- noted in HPI/Subj - Medication Medications: Active Medications Generic Name Dose Route Start Last Admin Trade Name Freq PRN Reason Stop Dose Admin Acetaminophen 650 mg 08/01/19 01:02 08/08/19 20:09 Tylenol PO 650 mg Q4H PRN Administration Headache/Fever/Mild Pain (1-3) Albuterol/Ipratropium 3 ml 08/05/19 18:30 08/09/19 14:19 Duoneb EZPAP 3 ml [id number] BALDOMERO Administration Aspirin 81 mg 08/02/19 09:00 08/09/19 08:40 Ecotrin PO 81 mg DAILY BALDOMERO Administration Atorvastatin Calcium 20 mg 08/01/19 21:00 08/08/19 20:10 Lipitor PO 20 mg HS BALDOMERO Administration Azithromycin 500 mg 08/03/19 21:00 08/08/19 20:10 Zithromax PO 500 mg 2100 BALDOMERO Administration Carvedilol 3.125 mg 08/03/19 17:00 08/09/19 08:39 Coreg PO 3.125 mg BID-WM BALDOMERO Administration Clonazepam 0.5 mg 08/01/19 09:15 08/09/19 08:47 Klonopin PO 0.5 mg BID PRN Administration Anxiety Clonidine 0.1 mg 08/01/19 01:04 08/05/19 14:29 Catapres PO 0.1 mg Q4H PRN Administration SBP Greater Than 180 Cyclobenzaprine HCl 10 mg 08/01/19 09:15 08/08/19 20:09 Flexeril PO 10 mg TID PRN Administration Muscle Spasm Docusate Sodium 100 mg 08/02/19 09:00 08/09/19 08:40 Colace PO 100 mg DAILY BALDOMERO Administration Duloxetine HCl 60 mg 08/01/19 21:00 08/09/19 08:40 Cymbalta PO 60 mg BID BALDOMERO Administration Enoxaparin Sodium 40 mg 08/01/19 09:00 08/09/19 08:40 Lovenox SC 40 mg 0900 BALDOMERO Administration Famotidine 20 mg 08/01/19 09:00 08/09/19 08:39 Pepcid PO 20 mg DAILY BALDOMERO Administration Guaifenesin 1,200 mg 08/03/19 21:00 08/09/19 08:40 Mucinex PO 1,200 mg Q12HR BALDOMERO Administration Insulin Human Regular 0 units 08/01/19 01:00 08/07/19 17:53 Humulin R SC 2 units .MODERATE SLIDING SC PRN Administration Moderate Correctional Scale Insulin Human Regular 0 units 08/01/19 01:00 08/02/19 00:07 Humulin R SC 2 units .BEDTIME SLIDING SC PRN Administration Bedtime Correctional Scale Mometasone Furoate/Formoterol Fumar 2 puff 08/01/19 18:30 08/09/19 06:39 Dulera 100 Mcg/5 Mcg Inhaler INH 2 puff BID-RT BALDOMERO Administration Montelukast Sodium 10 mg 08/01/19 21:00 08/08/19 20:09 Singulair PO 10 mg QPM BALDOMERO Administration Prednisone 40 mg 08/07/19 08:00 08/09/19 08:39 Prednisone PO 40 mg QAM-WM BALDOMERO Administration Sacubitril/Valsartan 1 tab 08/01/19 21:00 08/09/19 08:40 Entresto 49 Mg-51 Mg Tablet PO 1 tab BID BALDOMERO Administration Senna/Docusate Sodium 2 tab 08/01/19 01:02 08/07/19 20:42 Senokot S PO 2 tab BIDPRN PRN Administration Constipation Sodium Chloride 10 ml 08/01/19 01:02 08/06/19 08:23 Flush - Normal Saline IVF 10 ml PRN PRN Administration Saline Flush Sterile Water 1 ml 08/01/19 01:15 08/01/19 05:19 Bacteriostatic Water FS 1 ml PRN PRN Administration RECONSTITUTION Tramadol HCl 50 mg 08/01/19 09:15 08/07/19 20:43 Ultram PO 50 mg TID PRN Administration Pain - Exam General Appearance: awake alert Eye: PERRL, anicteric sclera ENT: normocephalic atraumatic, moist mucosa Neck: supple, symmetric, no lymphadenopathy Heart: RRR, no murmur, no gallops Respiratory: no rales, normal chest expansion, no tachypnea, rhonchi (Worse), wheezes (Worse) Gastrointestinal: soft, non-tender, no guarding Extremities: 1+ LE edema Skin: no lesions, no rashes Neurological: cranial nerve grossly intact, no focal deficits Musculoskeletal: generalized weakness Psychiatric: normal affect, A&O x 3 Hosp A/P (1) COPD exacerbation Code(s): J44.1 - CHRONIC OBSTRUCTIVE PULMONARY DISEASE W (ACUTE) EXACERBATION Status: Resolved (2) Acute on chronic respiratory failure with hypoxia Code(s): J96.21 - ACUTE AND CHRONIC RESPIRATORY FAILURE WITH HYPOXIA Status: Resolved (3) COPD (chronic obstructive pulmonary disease) Status: Chronic (4) Chronic respiratory failure with hypoxia Code(s): J96.11 - CHRONIC RESPIRATORY FAILURE WITH HYPOXIA Status: Chronic (5) DM type 2 causing CKD stage 3 Code(s): E11.22 - TYPE 2 DIABETES MELLITUS W DIABETIC CHRONIC KIDNEY DISEASE; N18.3 - CHRONIC KIDNEY DISEASE, STAGE 3 (MODERATE) Status: Chronic (6) Dyslipidemia Code(s): E78.5 - HYPERLIPIDEMIA, UNSPECIFIED Status: Chronic (7) Hypertension Code(s): I10 - ESSENTIAL (PRIMARY) HYPERTENSION Status: Chronic (8) Leukocytosis Code(s): D72.829 - ELEVATED WHITE BLOOD CELL COUNT, UNSPECIFIED Status: Chronic (9) Morbid obesity with BMI of 40.0-44.9, adult Code(s): E66.01 - MORBID (SEVERE) OBESITY DUE TO EXCESS CALORIES; Z68.41 - BODY MASS INDEX (BMI) 40.0-44.9, ADULT Status: Chronic (10) ALEXANDER (obstructive sleep apnea) Code(s): G47.33 - OBSTRUCTIVE SLEEP APNEA (ADULT) (PEDIATRIC) Status: Chronic (11) Tobacco abuse Code(s): Z72.0 - TOBACCO USE Status: Resolved - Plan Plan: Medical unit, plan for D/c in the next 24-48 hours if continues to improve pulmonology consultation, recommendations appreciated CTA chest - no mass, PE, or focal PNA CXR with right middle lobe hazy opacity - not seen on CTA chest IV steroids, transitioned or oral - now with worsening shortness of breath, cough, and loud breath sounds - worse wheezing/ rhonchi IV antibiotics small-volume nebulizers scheduled and as needed echocardiogram with reduced ejection fraction of 45% Cardiomyopathy regimen: -Entresto -Coreg -Lasix Limit fluid intake to avoid CHF exacerbation continue other home medications as able blood pressure control blood sugar control Replace electrolytes as needed
--- NOTE | 2019-08-09 17:39 | RAD ---
CHEST ONE VIEW: 08/09/19 HISTORY: Shortness of breath. COMPARISON: 08/06/19 study. Heart size appears slightly enlarged. A loop recorder device is present. There is suggestion of some right lower lobe parenchymal lung change similar to the prior 08/06/19 chest x-ray. The CT that was d one that same day shows this density does not actually represent an infiltrative change. IMPRESSION: Stable appearance to the chest. Chronic appearing lung change. POS: [facility]
[2019-08-09] MEDS: Atorvastatin Calcium 20 MG TAB PO SCH (20:15)
[2019-08-09] MEDS: Azithromycin 250 MG TAB PO SCH (20:15)
[2019-08-09] MEDS: Montelukast Sodium 10 mg Tablet PO SCH (20:15)
[2019-08-09] MEDS: Cyclobenzaprine 10 MG TAB PO PRN (20:20)
[2019-08-10] MEDS: Mometasone/Formoterol 120 PUFF INHALER INH SCH (06:54)
[2019-08-10] MEDS: Enoxaparin Sodium 40 MG/0.4 ML SYRINGE SC SCH (08:29)
[2019-08-10] MEDS: Docusate 100 MG CAP PO SCH (08:29)
[2019-08-10] MEDS: Aspirin 81 mg Enteric Coated Tablet PO SCH (08:29)
[2019-08-10] MEDS: predniSONE 20 MG TAB PO SCH (08:29)
[2019-08-10] MEDS: Carvedilol 3.125 MG TAB PO SCH ×2 (08:29→16:10)
[2019-08-10] MEDS: Sacubitril 49 MG/Valsartan 51 MG TABLET PO SCH (08:29)
[2019-08-10] MEDS: guaiFENesin ER 600 MG TAB PO SCH (08:29)
[2019-08-10] MEDS: Famotidine 20 MG TAB PO SCH (08:29)
[2019-08-10] MEDS: DULoxetine 60 MG CAP PO SCH (08:29)
[2019-08-10] MEDS: clonazePAM 0.5 MG TAB PO PRN (11:07)
[2019-08-10] MEDS: traMADol HCl 50 MG TAB PO PRN (11:08)
[2019-08-10 16:14] VITALS: BP 153/76; TEMP 97.5
[2019-08-10] MEDS ORDERED: Famotidine 20 MG TAB PO SCH (21:00)
--- NOTE | 2019-08-11 11:19 | DIS ---
DATE OF ADMISSION: 08/01/2019 DATE OF DISCHARGE: 08/10/2019 REASON FOR HOSPITALIZATION: Shortness of breath. SIGNIFICANT FINDINGS: The patient was found to have acute COPD exacerbation. PROCEDURES PERFORMED AND TREATMENTS RENDERED: The patient was admitted to intermediate medical care floor, had maximum medical therapy including consultation and treatment by Pulmonology. The patient had IV antibiotics, IV steroids, and breathing treatments with good improvement of symptoms. The patient recommended safe for discharge by Pulmonology on 08/10/2019. CONDITION ON DISCHARGE: Stable. SPECIFIC INSTRUCTIONS FOR THE PATIENT/FAMILY: 1. The patient recommended to complete a full course of oral antibiotics as directed. 2. The patient recommended to complete a full course of oral steroids with tapering dose as directed. 3. The patient recommended to continue small volume nebulizers. The patient recommended to take all other medications as directed, to be re-evaluated by primary care physician and Pulmonology in the outpatient clinic in the next 1 to 2 weeks. 4. The patient is recommended to follow up with primary care physician and Pulmonology in the next 1 to 2 weeks. 5. The patient recommended to return to acute care hospital immediately if signs or symptoms return, worsen, or any other new symptoms occur. DISCHARGE MEDICATIONS: Please see full discharge medication list for details with the following changes. 1. Cefpodoxime 200 mg one tablet p.o. b.i.d. for the next 7 days, 14 tablets. 2. Prednisone 10 mg tablets with the following tapering dose: 40 mg one tablet p.o. daily for 3 days, then 30 mg p.o. daily for 3 days, then 20 mg p.o. daily for 3 days, then 10 mg p.o. daily for 3 days, then stop. 3. Carvedilol 3.125 mg one tablet p.o. b.i.d. 4. All other discharge medications were continued without changes as follows. 5. The 4th medication will be DuoNebs q.4 hours p.r.n. shortness of breath. 6. Aspirin 81 mg one tablet p.o. daily. 7. Tylenol 650 mg p.o. q.4 hours p.r.n. pain or fever. 8. Clonazepam 0.5 mg one tablet p.o. b.i.d. p.r.n. anxiety. 9. Flexeril 10 mg one tablet p.o. t.i.d. p.r.n. muscle spasms. 10. Cymbalta 60 mg one tablet p.o. b.i.d. 11. Loratadine 10 mg one tablet p.o. daily p.r.n. allergy symptoms. 12. Dulera 100 mcg/5 mcg inhaler two puffs p.o. b.i.d. daily. 13. Singulair 10 mg one tablet p.o. daily. 14. Entresto 49/51 one tablet p.o. b.i.d. 15. Tramadol 50 mg one tablet p.o. t.i.d. p.r.n. pain. HOSPITAL COURSE: Ms. Amador is a very pleasant 69-year-old female, who presented to the [facility] on 08/01/2019-please see full history and physical in addition to progress notes and consultation notes for all details. The patient was admitted to the intermediate medical care floor for p.r.n. BiPAP therapy. The patient diagnosed with COPD with acute exacerbation. The patient is home oxygen-dependent at baseline. The patient requiring p.r.n. BiPAP therapy and IMCU for several days. The patient was started on IV antibiotics, IV steroids, and breathing treatments scheduled and as needed. With maximum medical therapy the patient did improve and she was recommended safe for downgrade to medical unit. The patient was transitioned to oral antibiotics per Pulmonology and continue to monitor. The patient had a CT angiography of the chest-please see full report for details-there is no acute pulmonary embolism or other acute cardiothoracic pathology identified. The patient was recommended safe for discharge by Pulmonology with close followup in the outpatient setting. Efforts were made with Case Management to set up the patient with home health care prior to discharge. The patient recommended to complete a full course of oral antibiotics, oral steroids with tapering dose, and continue breathing treatments as directed. The patient recommended to follow up with primary care physician and Pulmonology in the next 1 to 2 weeks. The patient recommended to return to acute care hospital immediately if signs or symptoms return, worsen, or any other new symptoms occur. Greater than 40 minutes spent coordinating care and discharge process for this patient. Job ID: [id number]
== END 2019-08-10 18:20 | disposition home health service (06) | DRG 871 ==
LOC: ERS 21:51 → IMCU/EMU 08-01 01:19 → T4-A 08-06 00:03
PROVIDERS: ADMIT Internal Medicine; ATTEND Internal Medicine
DX: A41.9 Sepsis, unspecified organism (principal); J96.01 Acute respiratory failure with hypoxia; J96.02 Acute respiratory failure with hypercapnia; I13.0 Hypertensive heart and chronic kidney disease with heart failure and stage 1 through stage 4 chronic kidney disease, or unspecified chronic kidney disease; I50.32 Chronic diastolic (congestive) heart failure; Z68.42 Body mass index [BMI] 45.0-49.9, adult; J44.1 Chronic obstructive pulmonary disease with (acute) exacerbation; R65.20 Severe sepsis without septic shock; I25.10 Atherosclerotic heart disease of native coronary artery without angina pectoris; F41.9 Anxiety disorder, unspecified; F32.9 Major depressive disorder, single episode, unspecified; E78.5 Hyperlipidemia, unspecified; N18.3 Chronic kidney disease, stage 3 (moderate); Z86.73 Personal history of transient ischemic attack (TIA), and cerebral infarction without residual deficits; Z98.51 Tubal ligation status; Z90.49 Acquired absence of other specified parts of digestive tract; Z88.0 Allergy status to penicillin; Z88.6 Allergy status to analgesic agent; Z88.8 Allergy status to other drugs, medicaments and biological substances; Z87.891 Personal history of nicotine dependence; E66.01 Morbid (severe) obesity due to excess calories; I35.1 Nonrheumatic aortic (valve) insufficiency; Z86.718 Personal history of other venous thrombosis and embolism; G47.33 Obstructive sleep apnea (adult) (pediatric); Z99.81 Dependence on supplemental oxygen
CPT/HCPCS: 36415; 36416; 71045; 71275; 80048; 80053; 82805; 83605; 85025; 87070; 87205; 93306; 94640; 94660; 94760; 96360; J0456; J1650; J1815; J2920; J3475; J3480; J7050; J7512; J7620; Q9966

== ENCOUNTER 2020-09-27 09:57 | Inpatient (IN) | payer MEDICARE ==
[2020-09-27] MEDS ORDERED: Iopamidol-370 76% 500 ML 1 ML ONE (10:41)
[2020-09-27] MEDS ORDERED: Aspirin Chewable 81 MG TAB ONE (10:42)
[2020-09-27] MEDS ORDERED: Nitroglycerin 2% Ointment 1 INCH/1 GM Packet ONE (10:42)
[2020-09-27] MEDS ORDERED: methylPREDNISolone Sod Succ/PF 125 MG/2 ML VIAL ONE (10:42)
--- NOTE | 2020-09-27 11:04 | RAD ---
EXAM: XR Chest 1 View Portable PROVIDED CLINICAL HISTORY: Dyspnea COMPARISON: 08/09/2019 FINDINGS: Evaluation is limited by patient body habitus. The cardiac and mediastinal silhouette are unchanged i n appearance. Patchy bibasilar parenchymal opacities appear similar, suggesting subsegmental atelectasis and/or scarring. Left costophrenic angle is poorly visualized which may be on the basis o f pleural fluid. There is no evidence for pneumothorax. IMPRESSION: Patchy bibasilar airspace disease appears similar and presumably reflects subsegmental atelectasis an d/or scarring. Left pleural fluid cannot be excluded.
[2020-09-27 11:24] LABS: #Lymphocytes 1.3 thou/uL (1.20-3.40); #Neutrophils 4.6 thou/uL (1.40-6.50); %Basophils 0.4 % (0.0-1.0); %Eosinophils 0.3 % (0.0-10.0); %Lymphocytes 19.2 % (21.0-51.0); %Monocytes 14.6 % (0.0-10.0); %Neutrophils 65.4 % (42.0-75.0); Hemoglobin 12.8 g/dL (12.0-16.0); Mean Corpuscular HGB CONC 32.5 g/dL (32.0-36.0); Mean Corpuscular Hemoglobin 32.2 pg (27.0-31.0); Mean Corpuscular Volume 99.1 fL (78.0-98.0); Platelet Count 125 thou/uL (130-400); RBC Distribution Width 12.3 % (11.5-14.5); Red Blood Cell (RBC) Count 3.99 mill/uL (4.20-5.40)
[2020-09-27 11:42] LABS: ALT (SGPT) 27 U/L (8-55); AST (SGOT) 35 U/L (5-34); Albumin 3.7 g/dL (3.4-4.8); Alkaline Phosphatase 61 U/L (40-110); Anion Gap 13 mmol/L (10-20); BUN (Urea Nitrogen) 16 mg/dL (9.8-20.1); Bilirubin, Total 0.5 mg/dL (0.2-1.2); Calc. Creatinine Clearance 0 mL/min (70-130); Calcium 8.7 mg/dL (7.8-10.44); Carbon Dioxide 33 mmol/L (23-31); Chloride 98 mmol/L (98-107); Globulin 2.9 g/dL (2.4-3.5); Glucose 131 mg/dL (80-115); Potassium 4.1 mmol/L (3.5-5.1); Protein, Total 6.6 g/dL (6.0-8.3); Sodium 140 mmol/L (136-145)
[2020-09-27 12:00] LABS: SARS-CoV-2 NAA Rapid Test DETECTED (NotDetected)
[2020-09-27 12:03] LABS: CKMB 1.8 ng/mL (0-6.6)
[2020-09-27] MEDS ORDERED: cefTRIAXone\\ROCEPHIN 1 GM VIAL ONE (12:28)
[2020-09-27] MEDS ORDERED: Azithromycin 500 MG VIAL ONE (13:24)
--- NOTE | 2020-09-27 13:48 | CT ---
EXAM: CT pulmonary angiogram with IV contrast and 3-D MIP reconstructions PROVIDED CLINICAL HISTORY: Dyspnea, Covid positive COMPARISON: 08/06/2019 FINDINGS: There is no evidence for central or segmental pulmonary embolus. Vascular calcification including cor onary calcium. Lipomatous hypertrophy of the inter-atrial septum. There is posterior right basilar consolidation that may reflect subsegmental atelectasis or infiltrat e. There is a 7 mm average axial dimension noncalcified pulmonary nodule at the left lung base. This appears possibly pleural-based and similar in size to prior. No pleural fluid or pneumothorax apparent. No evidence for thoracic lymph node enlargement. The airway appears patent and of normal caliber. The visualized portions of the upper abdomen demonstrate no acute findings. The osseous structures demonstrate no concerning lytic or blastic lesions. IMPRESSION: 1. No evidence for central or segmental pulmonary embolus. 2. Right basilar consolidation, subsegmental atelectasis versus infiltrate.
[2020-09-27 14:53] LABS: Troponin I 0.033 ng/mL (< 0.028)
[2020-09-27] MEDS ORDERED: Ondansetron ODT 4 MG TAB PO PRN (15:23)
[2020-09-27] MEDS ORDERED: Albuterol Sulfate 2.5 mg/3 ml Neb NEB PRN (15:23)
[2020-09-27] MEDS ORDERED: HYDROcodone/Acetaminophen 5/325 mg Tablet PO PRN (15:23)
[2020-09-27] MEDS ORDERED: Cyclobenzaprine 10 MG TAB PO PRN (15:23)
[2020-09-27] MEDS ORDERED: Ondansetron PF 4 MG/2 ML Vial IVP PRN (15:23)
[2020-09-27] MEDS ORDERED: Senokot S 8.6-50 MG TAB PO PRN (15:23)
[2020-09-27] MEDS ORDERED: Acetaminophen 650 MG Suppository PR PRN (15:23)
[2020-09-27] MEDS ORDERED: Dextrose 50% Abboject 50 ML SYRINGE SLOW IVP PRN (15:38)
[2020-09-27] MEDS ORDERED: Dextrose 5% in Water 1,000 ML IV PRN (15:38)
[2020-09-27] MEDS ORDERED: HumaLOG 300 UNITS/3 ML VIAL SC PRN (15:38)
--- NOTE | 2020-09-27 15:55 | HP ---
PRIMARY CARE PHYSICIAN: Dr. Little. CHIEF COMPLAINT: Weakness and shortness of breath. HISTORY OF PRESENT ILLNESS: This is a 70-year-old white female with a known history of COPD on 2 to 3 L of oxygen at home, also with diastolic and mild systolic congestive heart failure and previous mild strokes in the last year as well as a remote DVT from trauma. The patient reports that over the last 6 weeks or so she has been getting more short of breath and feeling more fatigued. She does have some dysarthria from her previous stroke which makes hard for her to speak, this is baseline for her currently. The patient does not specifically note any worsening cough. No fevers or chills, but has felt very fatigued. She normally lives with her son and his family and gets up and moves around by herself, but states that she has gotten increasingly weak over the last 6 weeks. She was not able to say specifically how functional she has been at that time. The patient presented to the hospital after sliding out of bed at home without any specific injury. She was noted to be very weak and so was brought into the emergency room here. She was requiring 3 to 4 L to keep her oxygen saturations up, her oxygen was dislodged when I came into the room, only one prong of the nasal cannula was in her nose and her sats were in the 70s. When I moved it back over so that both prongs are in her nose, then her sats came up to the mid to high 90s. She had a clear chest x-ray, normal white count, but had a positive COVID test done in the emergency room. The patient then had a CTA of the chest, which showed no blood clots, but did show a right basilar consolidation, atelectasis versus infiltrate. She was given antibiotics, given nebs and is feeling a little bit better, is being admitted to the hospital. REVIEW OF SYSTEMS: CONSTITUTIONAL: No fevers. No chills. EYES: Some blurred vision, but she has broken her glasses recently, has not gotten them replaced. ENT: No congestion, drainage, or sore throat. CARDIOVASCULAR: She has had a little bit of chest pressure on the left side of her chest, but no true pain. No palpitations or racing heart. She does have a pacemaker in place. PULMONARY: See HPI. GASTROINTESTINAL: No abdominal pain. She has had nausea, but no vomiting. No diarrhea or constipation. GENITOURINARY: No dysuria or hematuria. MUSCULOSKELETAL: She has had some pain in her left calf and thinks that her edema has gotten worse recently, though she has been watching her fluid intake and she was not found to have any significant edema on exam when she came to the emergency room. SKIN: No rashes or lesions she has noted. NEUROLOGIC: She gets some tingling in her hands sometimes, but none currently. Just generalized weakness. No focal weakness. PAST MEDICAL HISTORY: 1. COPD, on home oxygen 2 L. 2. Hypertension. 3. Diabetes mellitus type 2. 4. Severe coronary artery disease. 5. Congestive heart failure, mostly diastolic, but did have a mildly depressed ejection fraction a year ago of 45% to 50%. 6. Hyperlipidemia. 7. Chronic kidney disease stage 3. 8. History of stroke in 2018 and possibly in 2019. 9. Mild to moderate aortic regurgitation. 10. Infrarenal abdominal aortic aneurysm. 11. Previous DVT in her 30s from trauma. PAST SURGICAL HISTORY: 1. Cardiac catheterization. 2. Bilateral tubal ligation. 3. Right breast lumpectomy. 4. Cholecystectomy. 5. Loop recorder placement. 6. Pacemaker. SOCIAL HISTORY: The patient has a history of previous marijuana and tobacco smoking. She did have a more recent history of vaping after she stopped smoking and has not used marijuana in a while. No alcohol or other illicit drugs. The patient lives with her son and his family. She is a full code. Should she be incapacitated, her daughter would be her medical decision maker, her name is Estelita Sood. ALLERGIES: 1. TORADOL. 2. LEVOFLOXACIN. 3. PENICILLIN. 4. CEFACLOR, THOUGH SHE HAS HAD ROCEPHIN BEFORE WITHOUT ANY DIFFICULTIES. CURRENT MEDICATIONS: 1. Albuterol nebulizer as needed. 2. Spiriva inhaler once a day. 3. Tramadol as needed. 4. Flexeril every 8 hours as needed. 5. Lisinopril 10 mg daily. 6. Aspirin 81 mg daily. 7. Clarine ophthalmic drops daily. 8. Carvedilol 6.25 mg twice a day. 9. Fluticasone nasal spray two sprays in each nostril daily. 10. Fluticasone inhaler one inhalation daily. 11. Guaifenesin 1200 mg twice a day. 12. Klonopin 0.5 mg twice a day. 13. Lipitor 20 mg at night. 14. Pepcid 20 mg twice a day. 15. Singulair 10 mg daily. PHYSICAL EXAMINATION: VITAL SIGNS: Blood pressure 137/91, pulse 74, respirations 28, temperature 96.8, O2 saturation 96% on 4 L nasal cannula. GENERAL: This is a well-developed, obese white female, who appears very somnolent but is arousable. She does have slurred speech and has difficulty finding words, which she states is chronic, which does make getting a good history difficult. HEENT: Pupils equal, round, and reactive to light. Oropharynx clear without lesions, erythema, or exudate. NECK: Supple. No lymphadenopathy. No thyroid nodules or enlargement. No JVD. HEART: Regular rate and rhythm. No murmurs, rubs, or gallops. LUNGS: Clear to auscultation bilaterally. No wheezes, crackles, or rhonchi. She does have mildly increased work of breathing on the oxygen. ABDOMEN: Soft, obese, nontender to palpation. Normoactive bowel sounds. No hepatosplenomegaly or other masses. EXTREMITIES: No clubbing, cyanosis, or edema. She does have pain to palpation of her left calf and she does have a positive Homans on that side. SKIN: No rashes or lesions noted. NEUROLOGIC: The patient moves all extremities equally. No facial droop. She does have dysarthria as described above. PSYCHIATRIC: The patient is lethargic. She is arousable, oriented x3. Normal mood and affect. LABORATORY DATA: CBC with a mildly low platelets of 125. The rest was normal. Complete metabolic panel is notable for carbon dioxide of 33, a glucose of 131, and AST of 35. The rest was normal. Troponin was indeterminate at 0.043 with a negative CK-MB. Brain natriuretic peptide was negative at 59. Lactic acid was normal. Serology was influenza A and B were negative, but COVID rapid PCR was positive. Chest x-ray, I did review the chest x-ray done in the emergency room along with the radiologist's report. It does show some patchy bibasilar airspace disease. This is similar to previous chest x-rays, likely representing subsegmental atelectasis or scarring. CT angio of the chest with results as per HPI. ASSESSMENT: 1. Acute on chronic hypoxic respiratory failure. This is likely due to chronic obstructive pulmonary disease exacerbation with possible overlying pneumonia. No evidence of COVID pneumonia on her CT scan, but she is COVID positive, this may be contributing. We will treat with steroids. We will continue Rocephin and azithromycin given in the emergency room. We will give nebs scheduled as needed and we will continue Spiriva. We will consult the patient's sawdust machine operator, Dr. Strauss. 2. History of congestive heart failure. The patient does not appear to be volume overloaded at this time. I will go and check an echocardiogram since she has not had one in the last year and we will put her on a 1500 mL fluid restriction diet and we will resume her home medications. 3. Diabetes mellitus type 2. The patient is not currently on any medications for this, possibly diet controlled. We will monitor blood sugars and put on low insulin sliding scale in case she has elevations, especially on the steroids. We may end up needing to start some long-acting insulin should the steroids cause too high blood sugar elevation. 4. Hypertension, resume home medications. 5. Left calf pain. We will check an ultrasound to make sure she does not have a DVT there. 6. Previous stroke. We will have Speech Therapy evaluate the patient to make sure she is swallowing safely. 7. Gastrointestinal prophylaxis. Put the patient on Pepcid twice a day. 8. Deep venous thrombosis prophylaxis. Put the patient on the Lovenox, but do it twice a day due to her COVID positive status. I will have to keep a close eye on her platelets to make sure they do not drop. 9. Code status. The patient is a full code. Should she be incapacitated, her daughter would be her medical decision maker. Job ID: [id number]
--- NOTE | 2020-09-27 16:39 | ULT ---
ULTRASOUND DOPPLER DUPLEX VENOUS LEFT LOWER EXTREMITY: DATE: 09/27/2020 HISTORY: 70-year-old female with personal history of DVT COMPARISON: None available TECHNIQUE: Grayscale, color-flow, and spectral analysis, of major veins of left lower extremity. FINDINGS: There is demonstration of blood flow with normal compressibility, of the left common femoral, profund a femoral, greater saphenous, proximal portion of femoral, popliteal, and posterior tibial, veins. Because of pain, the patient did not allow compression of the mid and distal portions of the left fem oral vein. There is blood flow in these segments. IMPRESSION: 1) incomplete evaluation of mid and distal portions of left femoral vein. 2) No deep venous thrombosis in the rest of the major veins of left lower extremity.
[2020-09-27 17:50] LABS: Troponin I 0.026 ng/mL (< 0.028)
[2020-09-27] MEDS ORDERED: methylPREDNISolone Sod Succ 40 MG VIAL ONE (18:10)
[2020-09-27] MEDS ORDERED: Insulin Regular 300 UNITS/3 ML VIAL ONE (18:19)
[2020-09-27] MEDS: methylPREDNISolone Sod Succ 40 MG VIAL IVP SCH (18:29)
[2020-09-27] MEDS ORDERED: Albuterol Sulfate 2.5 mg/3 ml Neb NEB SCH (19:00)
[2020-09-27] MEDS ORDERED: Albuterol 200 PUFF (6.7GM INHALER) ONE (19:42)
[2020-09-27] MEDS: Albuterol 200 PUFF (6.7GM INHALER) INH SCH (19:47)
[2020-09-27] MEDS: Carvedilol 6.25 MG TAB PO SCH (21:26)
[2020-09-27] MEDS ORDERED: Famotidine 20 MG TAB ONE (21:45)
[2020-09-27] MEDS ORDERED: clonazePAM 0.5 MG TAB ONE (21:45)
[2020-09-27] MEDS ORDERED: Enoxaparin Sodium 40 MG/0.4 ML SYRINGE ONE (21:45)
[2020-09-27] MEDS: clonazePAM 0.5 MG TAB PO SCH (22:12)
[2020-09-27] MEDS: Enoxaparin Sodium 40 MG/0.4 ML SYRINGE SC SCH (22:12)
[2020-09-27] MEDS: Atorvastatin Calcium 40 MG TAB PO SCH (22:12)
[2020-09-27] MEDS: Famotidine 20 MG TAB PO SCH (22:13)
[2020-09-27] MEDS: Montelukast Sodium 10 mg Tablet PO SCH (22:13)
[2020-09-27 23:44] VITALS: BMI 52.4
[2020-09-27 23:55] LABS: CO2 Tension 55.9 mmHg (35.0-45.0); Calcium, Ionized (arterial) 1.18 mmol/L (1.12-1.30); Carboxyhemoglobin (COHb) 0.9 gm% (0.0-3.0); Hemoglobin (Hb) 12.7 g/dL (12.0-16.0); O2 Tension (PaO2), arterial 76.6 mmHg (> 70.0); Potassium - ABG Lab 4.07 mmol/L (3.70-5.30); pH, Arterial 7.33 (7.35-7.45)
[2020-09-27 23:56] LABS: ALV-art Gradient 110.205 mmHg (0-20); Puncture Site RRA
[2020-09-28] MEDS: guaiFENesin ER 600 MG TAB PO SCH ×3 (00:06→20:06)
[2020-09-28] MEDS: Albuterol 200 PUFF (6.7GM INHALER) INH SCH ×6 (00:06→22:26)
[2020-09-28] MEDS: methylPREDNISolone Sod Succ 40 MG VIAL IVP SCH ×4 (00:07→17:34)
[2020-09-28 05:15] LABS: #Lymphocytes 0.7 thou/uL (1.20-3.40); #Monocytes 0.4 thou/uL (0.11-0.59); #Neutrophils 2.4 thou/uL (1.40-6.50); %Basophils 0.3 % (0.0-1.0); %Eosinophils 0.2 % (0.0-10.0); %Monocytes 11.5 % (0.0-10.0); %Neutrophils 68.1 % (42.0-75.0); Hemoglobin 12.3 g/dL (12.0-16.0); Mean Corpuscular HGB CONC 31.7 g/dL (32.0-36.0); Mean Corpuscular Hemoglobin 31.3 pg (27.0-31.0); Mean Corpuscular Volume 98.6 fL (78.0-98.0); Mean Platelet Volume 9.2 fL (7.4-10.4); Platelet Count 132 thou/uL (130-400); RBC Distribution Width 12.2 % (11.5-14.5); Red Blood Cell (RBC) Count 3.94 mill/uL (4.20-5.40); White Blood Cell (WBC) Count 3.5 thou/uL (4.8-10.8)
[2020-09-28 05:32] LABS: Anion Gap 13 mmol/L (10-20); BUN (Urea Nitrogen) 21 mg/dL (9.8-20.1); Calc. Creatinine Clearance 113 mL/min (70-130); Calcium 8.5 mg/dL (7.8-10.44); Carbon Dioxide 29 mmol/L (23-31); Chloride 101 mmol/L (98-107); Glucose 164 mg/dL (80-115); Potassium 4.3 mmol/L (3.5-5.1); Sodium 139 mmol/L (136-145)
[2020-09-28] MEDS: HumaLOG 300 UNITS/3 ML VIAL SC PRN ×3 (06:32→17:39)
[2020-09-28] MEDS: Tiotropium Bromide 4 GM INHALER IH SCH (06:33)
[2020-09-28] MEDS: Mometasone 100 MCG/PUFF (1 INHALER) INH SCH ×2 (06:33→17:37)
--- NOTE | 2020-09-28 07:33 | PDOC.HOSPP ---
- Subjective Encounter Date: 09/28/20 Encounter Time: 09:00 Subjective: Patient feeling about the same. No fever overnight. No chest pain. - Objective Vital Signs & Weight: Vital Signs (12 hours) Temp Pulse Resp BP BP Pulse Ox 09/28/20 04:17 97.8 F 60 14 123/78 98 09/27/20 22:43 98.1 F 58 L 22 H 132/76 96 09/27/20 21:26 115/79 Weight Weight 296 lb 4.8 oz Result Diagrams: 09/28/20 04:40 09/28/20 04:40 Additional Labs: Accuchecks 09/27/20 09/27/20 09/27/20 20:54 19:05 18:17 POC Glucose 283 H 226 H 177 H Hospitalist ROS - Review of Systems Constitutional: denies: fever, chills Respiratory: reports: shortness of breath, SOB with excertion. denies: cough Cardiovascular: denies: chest pain, palpitations Gastrointestinal: denies: nausea, vomiting, abdominal pain - Medication Medications: Active Medications Generic Name Dose Route Start Last Admin Trade Name Freq PRN Reason Stop Dose Admin Albuterol Sulfate 2 puff 09/27/20 18:00 09/28/20 06:34 Albuterol 200 Puff (6.7gm Inhaler) INH 2 puff [id number] BALDOMERO Administration Atorvastatin Calcium 20 mg 09/27/20 21:00 09/27/20 22:12 Atorvastatin Calcium 40 Mg Tab PO 20 mg HS BALDOMERO Administration Carvedilol 6.25 mg 09/27/20 17:00 09/27/20 21:26 Carvedilol 6.25 Mg Tab PO 6.25 mg BID-WM BALDOMERO Administration Clonazepam 0.5 mg 09/27/20 21:00 09/27/20 22:12 Clonazepam 0.5 Mg Tab PO 0.5 mg BID BALDOMERO Administration Enoxaparin Sodium 40 mg 09/27/20 21:00 09/27/20 22:12 Enoxaparin Sodium 40 Mg/0.4 Ml Syringe SC 40 mg 0900,2100 BALDOMERO Administration Famotidine 20 mg 09/27/20 21:00 09/27/20 22:13 Famotidine 20 Mg Tab PO 20 mg BID BALDOMERO Administration Guaifenesin 600 mg 09/27/20 21:00 09/28/20 00:06 Guaifenesin Er 600 Mg Tab PO 600 mg Q12HR BALDOMERO Administration Insulin Human Lispro 0 units 09/27/20 15:38 09/28/20 06:32 Humalog 300 Units/3 Ml Vial SC 2 unit .MILD SLIDING SCALE PRN Administration Mild Correctional Scale Methylprednisolone Sodium Succinate 40 mg 09/27/20 18:00 09/28/20 06:32 Methylprednisolone Sod Succ 40 Mg Vial IVP 40 mg Q6HR BALDOMERO Administration Mometasone Furoate 1 mcg 09/28/20 06:30 09/28/20 06:33 Mometasone 100 Mcg/Puff (1 Inhaler) INH 1 puff BID-RT BALDOMERO Administration Montelukast Sodium 10 mg 09/27/20 21:00 09/27/20 22:13 Montelukast Sodium 10 Mg Tablet PO 10 mg QPM BALDOMERO Administration Tiotropium [place] 0 gm 09/28/20 07:00 09/28/20 06:33 Tiotropium [place] 4 Gm Inhaler IH 2 puff DAILY-RT BALDOMERO Administration - Exam General Appearance: NAD, awake alert ENT: moist mucosa Heart: RRR, no murmur, no gallops, no rubs Respiratory: CTAB, no wheezes, no rales, no ronchi, normal chest expansion, no tachypnea Gastrointestinal: soft, non-tender, non-distended, normal bowel sounds Extremities: no edema Psychiatric: normal affect, normal behavior, A&O x 3 Hosp A/P (1) Acute on chronic respiratory failure with hypoxia Code(s): J96.21 - ACUTE AND CHRONIC RESPIRATORY FAILURE WITH HYPOXIA Status: Acute (2) COPD exacerbation Code(s): J44.1 - CHRONIC OBSTRUCTIVE PULMONARY DISEASE W (ACUTE) EXACERBATION Status: Acute (3) COVID-19 Code(s): U07.1 - COVID-19 Status: Acute (4) Combined congestive systolic and diastolic heart failure Code(s): I50.40 - UNSP COMBINED SYSTOLIC AND DIASTOLIC (CONGESTIVE) HRT FAIL Status: Chronic Qualifiers: Heart failure chronicity: chronic Qualified Code(s): I50.42 - Chronic c ombined systolic (congestive) and diastolic (congestive) heart failure (5) DM type 2 (diabetes mellitus, type 2) Status: Chronic (6) Hypertension Code(s): I10 - ESSENTIAL (PRIMARY) HYPERTENSION Status: Chronic (7) CAD (coronary artery disease) Code(s): I25.10 - ATHSCL HEART DISEASE OF [place] CORONARY ARTERY W/O ANG PCTRS Status: Chronic Qualifiers: Coronary Disease-Associated Artery/Lesion type: [place] artery [place] vs. transplanted heart: [place] heart Associated angina: without angina Qualified Code(s): I25.10 - Atherosclerotic heart disease of [place] coronary artery without angina pectoris (8) Dyslipidemia Code(s): E78.5 - HYPERLIPIDEMIA, UNSPECIFIED Status: Chronic (9) Morbid obesity with BMI of 40.0-44.9, adult Code(s): E66.01 - MORBID (SEVERE) OBESITY DUE TO EXCESS CALORIES; Z68.41 - BODY MASS INDEX [BMI]40.0-44.9, ADULT Status: Chronic (10) ALEXANDER (obstructive sleep apnea) Code(s): G47.33 - OBSTRUCTIVE SLEEP APNEA (ADULT) (PEDIATRIC) Status: Chronic - Plan Patient stable on 4L NC. Getting steroids, inhalers, antibiotics, and Spiriva. Lymphopenia from the Covid but no Covid type infiltrates on her CXR. Uncertain how much of this is COPD and how much is Covid. Given her underlying medical conditions it is reasonable to go ahead and give Remdesivir along with the steroids. Pulmonology consulted. DVT Proph: Lovenox BID GI Proph: Pepcid BID
[2020-09-28] MEDS: Aspirin 81 mg Enteric Coated Tablet PO SCH (07:51)
[2020-09-28] MEDS: Lisinopril 10 MG TAB PO SCH (07:51)
[2020-09-28] MEDS: Carvedilol 6.25 MG TAB PO SCH ×2 (07:51→17:36)
[2020-09-28] MEDS: clonazePAM 0.5 MG TAB PO SCH ×3 (07:51→20:06)
[2020-09-28] MEDS: Famotidine 20 MG TAB PO SCH ×2 (07:51→20:04)
[2020-09-28] MEDS: Enoxaparin Sodium 40 MG/0.4 ML SYRINGE SC SCH ×2 (07:52→20:04)
[2020-09-28] MEDS ORDERED: REMDESIVIR (EUA) 200 MG in Sodium Chloride 0.9% 250 ML 210 ML IV SCH (09:00)
[2020-09-28 09:37] LABS: ALT (SGPT) 25 U/L (8-55); AST (SGOT) 32 U/L (5-34)
[2020-09-28] MEDS: cefTRIAXone\\ROCEPHIN 1 GM in Sodium Chloride 0.9% 100 ML IVPB SCH (13:40)
--- NOTE | 2020-09-28 14:54 | CON ---
DATE OF CONSULTATION: 09/28/2020 HISTORY OF PRESENT ILLNESS: Ms. Amador is a 70-year-old female with COPD. She says 6 family members have COVID. She presented with a history of being short of breath for 6 weeks. She was not COVID tested until she got here. Her main reason for coming into the hospital was that she was getting too weak to stand up. She denied having a fever, cough, purulent sputum, or hemoptysis. PAST MEDICAL HISTORY: Remarkable for: 1. COPD, on home oxygen. 2. Hypertension. 3. Diabetes. 4. History of coronary artery disease. 5. History of systolic and diastolic heart failure. 6. Lipid disorder. 7. History of multiple CVAs in the past. 8. History of chronic kidney disease. 9. History of valvular heart disease. 10. History of abdominal aortic aneurysm. 11. History of DVT in the past. 12. History of cardiac catheterization. 13. History of tubal ligation. 14. History of breast lumpectomy. 15. History of cholecystectomy. 16. History of placement of a loop recorder. 17. History of pacemaker. SOCIAL HISTORY: She is not currently smoking. She is not a daily drinker. ALLERGIES: REPORTED TO LEVAQUIN, TORADOL, PENICILLIN, AND CEFACLOR. MEDICATIONS: Have been reviewed. PHYSICAL EXAMINATION: GENERAL: She is in no distress. She actually said she felt good. VITAL SIGNS: She is afebrile; heart rate 60; respiratory rates in the teens; oximetry is 98% on 4 L earlier in the day, some reason, it is recorded that she is up to 6 L this afternoon; and blood pressure 123/78. HEENT: Pupils are equal. Sclerae are anicteric. NECK: Supple. LUNGS: Distant and clear. I do not hear any wheezes. HEART: Regular rhythm. ABDOMEN: Soft. EXTREMITIES: Without edema. DIAGNOSTIC STUDIES: Chest CT and chest x-ray had been reviewed. I do not see anything on her CT suggestive of COVID pneumonia. COVID screen is positive. LABORATORY DATA: White count 3.5, hemoglobin 12.3, and platelets 132. Creatinine is 0.9. Glucoses have been from 164 to 283. IMPRESSION: 1. Chronic obstructive pulmonary disease exacerbation. It sounds like it has been going on for quite some time. 2. COVID infection. It is unclear what the duration of her illness is. She certainly does not have anything radiographically, looks like COVID pneumonia and she certainly did not present with complaints suggestive of a COVID pneumonia. If she is stable 24 to 48 hours, she could be discharged home with slow steroid taper, p.o. antimicrobial therapy, and her nebulizer treatments as well as her home oxygen. TIME SPENT: 50-minute consult, 50% of the time was spent on the unit coordinating care. Job ID: [id number] MTDD
[2020-09-28] MEDS: Azithromycin 500 MG in Sodium Chloride 0.9% 250 ML 250 ML IVPB SCH (15:50)
--- NOTE | 2020-09-28 18:48 | EKG ---
Test Reason : Blood Pressure : / mmHG Vent. Rate : 064 BPM Atrial Rate : 064 BPM P-R Int : 194 ms QRS Dur : 086 ms QT Int : 420 ms P-R-T Axes : 034 036 224 degrees QTc Int : 433 ms Sinus rhythm with marked sinus arrhythmia Low voltage QRS Nonspecific T wave abnormality Abnormal ECG Confirmed by DR. Rubin GOMEZ MD ([id number]) on 09/28/2020 6:47:48 PM Referred By: ANTONIO Confirmed By:DR. Rubin GOMEZ MD
[2020-09-28] MEDS: Atorvastatin Calcium 40 MG TAB PO SCH (20:05)
[2020-09-28] MEDS: Montelukast Sodium 10 mg Tablet PO SCH (20:06)
[2020-09-29] MEDS: methylPREDNISolone Sod Succ 40 MG VIAL IVP SCH ×5 (03:51→21:18)
[2020-09-29] MEDS: Albuterol 200 PUFF (6.7GM INHALER) INH SCH ×5 (05:43→21:19)
[2020-09-29 05:44] LABS: ALT (SGPT) 25 U/L (8-55); AST (SGOT) 29 U/L (5-34); Albumin 3.4 g/dL (3.4-4.8); Alkaline Phosphatase 50 U/L (40-110); Anion Gap 14 mmol/L (10-20); BUN (Urea Nitrogen) 27 mg/dL (9.8-20.1); Bilirubin, Direct 0.1 mg/dL (0.1-0.3); Bilirubin, Total 0.3 mg/dL (0.2-1.2); Calc. Creatinine Clearance 105 mL/min (70-130); Calcium 8.3 mg/dL (7.8-10.44); Carbon Dioxide 29 mmol/L (23-31); Chloride 101 mmol/L (98-107); Globulin 2.6 g/dL (2.4-3.5); Glucose 133 mg/dL (80-115); Potassium 4.4 mmol/L (3.5-5.1); Sodium 140 mmol/L (136-145)
[2020-09-29] MEDS: Mometasone 100 MCG/PUFF (1 INHALER) INH SCH ×2 (05:44→17:45)
--- NOTE | 2020-09-29 06:32 | PDOC.HOSPP ---
- Subjective Encounter Date: 09/29/20 Subjective: Patient seen examined this morning at bedside. She is able to provide some basic history however tells me that she feels quite tired. Tells me that her shortness of breath is about the same from yesterday to possibly slightly improved. Appears acutely ill still requiring 6 L O2 via NC but she is not on any respiratory distress however. Currently receiving Remdesivir, IV steroids with Solu-Medrol for treatment of COVID-19 as well as possible COPD exacerbation, she is also on ceftriaxone plus azithromycin for possible bacterial component. Did not have any leukocytosis and on the other hand does have some lymphopenia. Vital signs are without any reported fever. - Objective Vital Signs & Weight: Vital Signs (12 hours) Temp Pulse Resp BP Pulse Ox 09/29/20 04:40 79 L 09/29/20 00:00 97.9 F 71 21 H 135/72 95 09/28/20 20:30 70 21 H 138/81 96 09/28/20 20:00 97.9 F Weight Weight 296 lb 4.8 oz I&O: 09/27/20 09/28/20 09/29/20 06:59 06:59 06:59 Intake Total 1200 Output Total 250 Balance 950 Result Diagrams: 09/28/20 04:40 09/29/20 05:08 Additional Labs: Accuchecks 09/28/20 09/28/20 09/28/20 20:15 17:04 11:47 POC Glucose 155 H 205 H 239 H Radiology Reviewed by me: Yes (Chest x-ray with patchy bibasilar opacities) Hospitalist ROS - Review of Systems Constitutional: reports: chills, weakness, malaise, other (Generalized weakness, fatigue). denies: fever Respiratory: reports: cough, shortness of breath, SOB with excertion Cardiovascular: denies: chest pain, palpitations, orthopnea, paroxysmal noc. dyspnea, edema, light headedness, other Gastrointestinal: denies: nausea, vomiting, abdominal pain, diarrhea, constipation, melena, hematochezia, other Genitourinary: denies: dysuria, frequency, incontinence, hematuria, retention, other Neurological: reports: weakness (Generalized weakness, feels quite tired) - Medication Medications: Active Medications Generic Name Dose Route Start Last Admin Trade Name Freq PRN Reason Stop Dose Admin Albuterol Sulfate 2 puff 09/27/20 18:00 09/29/20 05:43 Albuterol 200 Puff (6.7gm Inhaler) INH 2 puff [id number] Administration Aspirin 81 mg 09/28/20 09:00 09/28/20 07:51 Aspirin 81 Mg Enteric Coated Tablet PO 81 mg DAILY [facility] Administration Atorvastatin Calcium 20 mg 09/27/20 21:00 09/28/20 20:05 Atorvastatin Calcium 40 Mg Tab PO 20 mg HS [facility] Administration Carvedilol 6.25 mg 09/27/20 17:00 09/28/20 17:36 Carvedilol 6.25 Mg Tab PO 6.25 mg BID-WM [facility] Administration Clonazepam 0.5 mg 09/27/20 21:00 09/28/20 20:06 Clonazepam 0.5 Mg Tab PO 0.5 mg BID [facility] Administration Enoxaparin Sodium 40 mg 09/27/20 21:00 09/28/20 20:04 Enoxaparin Sodium 40 Mg/0.4 Ml Syringe SC 40 mg 0900,2100 [facility] Administration Famotidine 20 mg 09/27/20 21:00 09/28/20 20:04 Famotidine 20 Mg Tab PO 20 mg BID [facility] Administration Guaifenesin 600 mg 09/27/20 21:00 09/28/20 20:06 Guaifenesin Er 600 Mg Tab PO 600 mg Q12HR [facility] Administration Ceftriaxone Sodium 1 gm/ 100 mls @ 200 mls/hr 09/28/20 13:00 09/28/20 13:40 Sodium Chloride IVPB 100 mls 1300 [facility] Administration Azithromycin 500 mg/ Sodium 250 mls @ 250 mls/hr 09/28/20 14:00 09/28/20 15:50 Chloride IVPB 250 mls 1400 [facility] Administration Insulin Human Lispro 0 units 09/27/20 15:38 09/28/20 17:39 Humalog 300 Units/3 Ml Vial SC 3 unit .MILD SLIDING SCALE PRN Administration Mild Correctional Scale Lisinopril 10 mg 09/28/20 09:00 09/28/20 07:51 Lisinopril 10 Mg Tab PO 10 mg DAILY [facility] Administration Methylprednisolone Sodium Succinate 40 mg 09/29/20 03:00 09/29/20 03:51 Methylprednisolone Sod Succ 40 Mg Vial IVP 40 mg 0300,0900,1500,2100 [facility] Administration Mometasone Furoate 1 mcg 09/28/20 06:30 09/29/20 05:44 Mometasone 100 Mcg/Puff (1 Inhaler) INH 1 puff BID-RT [facility] Administration Montelukast Sodium 10 mg 09/27/20 21:00 09/28/20 20:06 Montelukast Sodium 10 Mg Tablet PO 10 mg QPM [facility] Administration Tiotropium [place] 0 gm 09/28/20 07:00 09/28/20 06:33 Tiotropium [place] 4 Gm Inhaler IH 2 puff DAILY-RT [facility] Administration - Exam General Appearance: NAD, awake alert, ill appearing Heart: RRR, no murmur, no gallops, no rubs, normal peripheral pulses Respiratory: normal chest expansion, wheezes (Bilateral expiratory wheezing) Gastrointestinal: soft, non-tender, non-distended, normal bowel sounds, no palpable masses, no hepatomegaly, no splenomegaly, no bruit Extremities: no cyanosis, no clubbing, no edema Neurological: cranial nerve grossly intact, normal sensation to touch, no weakness, no focal deficits, no new deficit Psychiatric: somnolent (Appears quite tired but not lethargic, awakens to verbal command) Hosp A/P - Plan old records reviewed/req A/P: Patient with known history of chronic respiratory failure dependent on 3 L via nasal cannula presents with acute respiratory failure now requiring 6 L via NC. Tested positive for COVID-19, this x-ray does show bilateral bibasilar infiltrates. Currently on IV remdesivir, IV Solu-Medrol, ceftriaxone plus azithromycin for coverage of possible COVID-19 pneumonia, bacterial superinfection, COPD exacerbation. Acute on chronic hypoxic respiratory failure: Per patient at baseline on 3 L via NC. Currently requiring 6 L via NC. Respiratory failure likely multifactorial in setting of COVID-19 pneumonia, COPD exacerbation and less likely bacterial superinfection. We will continue with current regiment of IV remdesivir, IV Solu-Medrol for treatment of COVID-19 and COPD. Continue with IV antibiotics for empiric coverage of superimposed bacterial pneumonia. The patient remains afebrile with negative blood cultures consider discontinuing antibiotics vs de- escalating for coverage of COPD. COPD exacerbation: Remote history of heavy tobacco abuse with greater than 1 pack/day for many years. On exam she does have bilateral expiratory wheezing. Continue with IV Solu-Medrol per current dose. Continue with IV antibiotics ceftriaxone plus azithromycin. Continue with bronchodilators. Continue Si ngulair. COVID19 infection: Per above plan. Isolation per protocol. Continue wtih remdesivir and steroids. Lymphopenia: In setting of COVID-19 infection. Monitor counts. Coronary artery disease: No acute issues. Continue with aspirin, statin, beta- renée. Initial troponin elevation likely demand in nature in setting of hypoxia and acute illness. Hypertension: Continue with carvedilol, lisinopril, careful monitoring of hemodynamics. Hyperglycemia: In part related to steroid induced hypoglycemia. She does appear to have history of diabetes mellitus however I do not see any chronic medications listed on her med rec. We will continue with insulin sliding scale for now. Will reassess with patient if on any chronic medications for management of diabetes. Obesity: Lifestyle modifications advised. DISPOSITION: Continue with above therapy for coverage of COVID-19, possible bacterial pneumonia & COPD exacerbation. Discharge planning pending clinical progression.
[2020-09-29] MEDS: Tiotropium Bromide 4 GM INHALER IH SCH (09:26)
[2020-09-29] MEDS: clonazePAM 0.5 MG TAB PO SCH ×2 (09:28→21:15)
[2020-09-29] MEDS: Aspirin 81 mg Enteric Coated Tablet PO SCH (09:29)
[2020-09-29] MEDS: Carvedilol 6.25 MG TAB PO SCH ×2 (09:29→17:46)
[2020-09-29] MEDS: Famotidine 20 MG TAB PO SCH ×2 (09:29→21:11)
[2020-09-29] MEDS: Lisinopril 10 MG TAB PO SCH (09:29)
[2020-09-29] MEDS: guaiFENesin ER 600 MG TAB PO SCH ×2 (09:29→21:18)
[2020-09-29] MEDS: Enoxaparin Sodium 40 MG/0.4 ML SYRINGE SC SCH ×2 (09:30→21:11)
[2020-09-29] MEDS: REMDESIVIR (EUA) 100 MG in Sodium Chloride 0.9% 250 ML 230 ML IV SCH (11:15)
[2020-09-29] MEDS: HumaLOG 300 UNITS/3 ML VIAL SC PRN ×2 (11:20→17:46)
[2020-09-29] MEDS: cefTRIAXone\\ROCEPHIN 1 GM in Sodium Chloride 0.9% 100 ML IVPB SCH (13:39)
--- NOTE | 2020-09-29 14:50 | PRG ---
DATE OF SERVICE: 09/29/2020 OBJECTIVE: VITAL SIGNS: Ms. Amador is afebrile. Heart rate is in the 60s. Respiratory rate is 20. She is on nasal cannula. Oximetry is 100%. Blood pressure is 145/92. LUNGS: Unchanged. HEART: Unchanged. ABDOMEN: Unchanged. IMPRESSION: 1. Chronic obstructive pulmonary disease exacerbation with extreme deconditioning. 2. Diabetes. 3. Rapid COVID positive. PLAN: It is unclear how long her COVID has been positive since 6 family members have it. Clinically, she does not appear to have a COVID pneumonia. We will see her less frequently. Job ID: [id number]
[2020-09-29] MEDS: Azithromycin 500 MG in Sodium Chloride 0.9% 250 ML 250 ML IVPB SCH (14:57)
[2020-09-29] MEDS: Atorvastatin Calcium 40 MG TAB PO SCH (21:12)
[2020-09-29] MEDS: Montelukast Sodium 10 mg Tablet PO SCH (21:12)
[2020-09-29] MEDS: Guaifenesin DM 100-10/5 ML UDCUP PO PRN (21:17)
[2020-09-30] MEDS: methylPREDNISolone Sod Succ 40 MG VIAL IVP SCH ×4 (04:17→20:34)
[2020-09-30 06:08] LABS: #Monocytes 0.6 thou/uL (0.11-0.59); #Neutrophils 4.9 thou/uL (1.40-6.50); %Basophils 0.2 % (0.0-1.0); %Eosinophils 0.2 % (0.0-10.0); %Lymphocytes 15.8 % (21.0-51.0); %Neutrophils 74.9 % (42.0-75.0); Hemoglobin 12.1 g/dL (12.0-16.0); Mean Corpuscular HGB CONC 31.4 g/dL (32.0-36.0); Mean Corpuscular Hemoglobin 31.2 pg (27.0-31.0); Mean Corpuscular Volume 99.4 fL (78.0-98.0); Mean Platelet Volume 9.4 fL (7.4-10.4); Platelet Count 145 thou/uL (130-400); RBC Distribution Width 12.3 % (11.5-14.5); Red Blood Cell (RBC) Count 3.86 mill/uL (4.20-5.40); White Blood Cell (WBC) Count 6.6 thou/uL (4.8-10.8)
[2020-09-30 06:30] LABS: ALT (SGPT) 21 U/L (8-55); AST (SGOT) 22 U/L (5-34); Albumin 3.5 g/dL (3.4-4.8); Alkaline Phosphatase 51 U/L (40-110); Bilirubin, Direct 0.1 mg/dL (0.1-0.3); Bilirubin, Total 0.3 mg/dL (0.2-1.2); Protein, Total 6.2 g/dL (6.0-8.3)
[2020-09-30 06:43] LABS: ALT (SGPT) 21 U/L (8-55); AST (SGOT) 22 U/L (5-34); Albumin 3.4 g/dL (3.4-4.8); Alkaline Phosphatase 47 U/L (40-110); BUN (Urea Nitrogen) 27 mg/dL (9.8-20.1); Bilirubin, Total 0.2 mg/dL (0.2-1.2); Calc. Creatinine Clearance 118 mL/min (70-130); Calcium 8.2 mg/dL (7.8-10.44); Chloride 102 mmol/L (98-107); Globulin 2.8 g/dL (2.4-3.5); Glucose 169 mg/dL (80-115); Potassium 4.5 mmol/L (3.5-5.1); Protein, Total 6.2 g/dL (6.0-8.3); Sodium 140 mmol/L (136-145)
[2020-09-30] MEDS: Mometasone 100 MCG/PUFF (1 INHALER) INH SCH ×2 (06:44→17:29)
[2020-09-30] MEDS: Albuterol 200 PUFF (6.7GM INHALER) INH SCH ×5 (06:44→20:37)
[2020-09-30] MEDS: HumaLOG 300 UNITS/3 ML VIAL SC PRN ×3 (06:46→17:24)
[2020-09-30] MEDS: Tiotropium Bromide 4 GM INHALER IH SCH (06:49)
[2020-09-30 07:16] LABS: Carbon Dioxide 26 mmol/L (23-31)
[2020-09-30 08:02] LABS: Anion Gap 17 mmol/L (10-20)
[2020-09-30] MEDS: Aspirin 81 mg Enteric Coated Tablet PO SCH (08:19)
[2020-09-30] MEDS: clonazePAM 0.5 MG TAB PO SCH ×2 (08:19→20:35)
[2020-09-30] MEDS: Enoxaparin Sodium 40 MG/0.4 ML SYRINGE SC SCH ×2 (08:19→20:34)
[2020-09-30] MEDS: Carvedilol 6.25 MG TAB PO SCH ×2 (08:19→17:26)
[2020-09-30] MEDS: Famotidine 20 MG TAB PO SCH ×2 (08:20→20:35)
[2020-09-30] MEDS: Lisinopril 10 MG TAB PO SCH (08:20)
[2020-09-30] MEDS: guaiFENesin ER 600 MG TAB PO SCH ×2 (08:20→20:37)
[2020-09-30] MEDS: REMDESIVIR (EUA) 100 MG in Sodium Chloride 0.9% 250 ML 230 ML IV SCH (10:26)
[2020-09-30] MEDS: cefTRIAXone\\ROCEPHIN 1 GM in Sodium Chloride 0.9% 100 ML IVPB SCH (11:50)
[2020-09-30] MEDS: Azithromycin 500 MG in Sodium Chloride 0.9% 250 ML 250 ML IVPB SCH (14:14)
[2020-09-30] MEDS ORDERED: Metoprolol Tartrate 5 MG/5 ML VIAL IVP SCH (14:15)
[2020-09-30] MEDS: Diltiazem 125 MG in Sodium Chloride 0.9% 100 ML IVPB SCH (15:47)
--- NOTE | 2020-09-30 16:37 | RAD ---
RADIOGRAPH CHEST 1 VIEW: DATE: 09/30/2020 TIME: 4:18 PM HISTORY: 70-year-old female with dyspnea and tachycardia COMPARISON: 09/27/2020 FINDINGS: Apparent confluent region of increased attenuation at right medial base, appears worse than on the pr ior study, but that could be due to differences in technique. Magnification of cardiac shadow. No consolidation elsewhere. No pneumothorax. No mary ellen pulmonary alveolar edema. IMPRESSION: Questionable early infiltrate at medial base of right lower lobe versus normal bronchovascular markin gs. Recommend follow-up.
[2020-09-30 16:45] LABS: Actual Bicarbonate (HCO3a) 30.3 mEq/L (22-28); Base Excess (BEa) 4.1 mEq/L (-2.0 to +3.0); CO2 Tension 52.1 mmHg (35.0-45.0); Calcium, Ionized (arterial) 1.16 mmol/L (1.12-1.30); Carboxyhemoglobin (COHb) 0.8 gm% (0.0-3.0); Hemoglobin (Hb) 13.9 g/dL (12.0-16.0); O2 Tension (PaO2), arterial 82.6 mmHg (> 70.0); Potassium - ABG Lab 4.29 mmol/L (3.70-5.30); pH, Arterial 7.38 (7.35-7.45)
[2020-09-30 16:51] LABS: ALV-art Gradient 80.435 mmHg (0-20); Puncture Site LRA
--- NOTE | 2020-09-30 18:13 | PDOC.HOSPP ---
- Subjective Encounter Date: 09/30/20 Encounter Time: 09:00 Subjective: F/u: COVID THe patient states that she is still fatigued, says she has had better days . Her heart rate was 127 and EKG showed atrial fibrillation. She had no response to metoprolol 5 mg so was started on a cardizem drip ABG showed mild hypercapnea - Objective Vital Signs & Weight: Vital Signs (12 hours) Temp Pulse Resp BP Pulse Ox 09/30/20 17:37 96 F L 102 H 24 H 124/74 94 L 09/30/20 12:11 96 F L 127 H 24 H 136/94 H 94 L 09/30/20 08:51 97.3 F L 55 L 20 142/90 H 94 L Weight Weight 296 lb 4.8 oz I&O: 09/29/20 09/30/20 10/01/20 06:59 06:59 06:59 Intake Total 1200 240 Output Total 250 900 Balance 950 -660 Result Diagrams: 09/30/20 05:17 09/30/20 05:17 Additional Labs: Accuchecks 09/30/20 09/30/20 09/30/20 16:33 12:13 04:24 POC Glucose 172 H 232 H 162 H 09/29/20 20:54 POC Glucose 182 H Hospitalist ROS - Review of Systems Constitutional: denies: fever, chills - Medication Medications: Active Medications Generic Name Dose Route Start Last Admin Trade Name Freq PRN Reason Stop Dose Admin Albuterol Sulfate 2 puff 09/27/20 18:00 09/30/20 17:28 Albuterol 200 Puff (6.7gm Inhaler) INH 2 puff [id number] [facility]DOM[facility] Administration Aspirin 81 mg 09/28/20 09:00 09/30/20 08:19 Aspirin 81 Mg Enteric Coated Tablet PO 81 mg DAILY [facility] Administration Atorvastatin Calcium 20 mg 09/27/20 21:00 09/29/20 21:12 Atorvastatin Calcium 40 Mg Tab PO 20 mg HS [facility] Administration Carvedilol 6.25 mg 09/27/20 17:00 09/30/20 17:26 Carvedilol 6.25 Mg Tab PO 6.25 mg BID-WM [facility] Administration Clonazepam 0.5 mg 09/29/20 09:00 09/30/20 08:19 Clonazepam 0.5 Mg Tab PO 0.5 mg BID [facility] Administration Enoxaparin Sodium 40 mg 09/27/20 21:00 09/30/20 08:19 Enoxaparin Sodium 40 Mg/0.4 Ml Syringe SC 40 mg 0900,2100 [facility] Administration Famotidine 20 mg 09/27/20 21:00 09/30/20 08:20 Famotidine 20 Mg Tab PO 20 mg BID [facility] Administration Guaifenesin 600 mg 09/27/20 21:00 09/30/20 08:20 Guaifenesin Er 600 Mg Tab PO 600 mg Q12HR [facility] Administration Guaifenesin/Dextromethorphan 15 ml 09/27/20 15:23 09/29/20 21:17 Guaifenesin Dm 100-10/5 Ml Udcup PO 15 ml Q4H PRN Administration Cough Ceftriaxone Sodium 1 gm/ 100 mls @ 200 mls/hr 09/28/20 13:00 09/30/20 11:50 Sodium Chloride IVPB 100 mls 1300 [facility] Administration Azithromycin 500 mg/ Sodium 250 mls @ 250 mls/hr 09/28/20 14:00 09/30/20 14:14 Chloride IVPB 250 mls 1400 [facility] Administration Remdesivir 100 mg/ Sodium 250 mls @ 250 mls/hr 09/29/20 09:00 09/30/20 10:26 Chloride IV 10/02/20 09:59 250 mls Q24H [facility] Administration Diltiazem HCl 125 mg/ Sodium 125 mls @ 5 mls/hr 09/30/20 15:00 09/30/20 15:47 Chloride IVPB 125 mls INF [facility] Administration 5 MG/HR Insulin Human Lispro 0 units 09/27/20 15:38 09/30/20 17:24 Humalog 300 Units/3 Ml Vial SC 2 unit .MILD SLIDING SCALE PRN Administration Mild Correctional Scale Lisinopril 10 mg 09/28/20 09:00 09/30/20 08:20 Lisinopril 10 Mg Tab PO 10 mg DAILY [facility] Administration Methylprednisolone Sodium Succinate 40 mg 09/29/20 03:00 09/30/20 15:15 Methylprednisolone Sod Succ 40 Mg Vial IVP 40 mg 0300,0900,1500,2100 [facility] Administration Mometasone Furoate 100 mcg 09/29/20 18:30 09/30/20 17:29 Mometasone 100 Mcg/Puff (1 Inhaler) INH 1 inh BID-RT [facility] Administration Montelukast Sodium 10 mg 09/27/20 21:00 09/29/20 21:12 Montelukast Sodium 10 Mg Tablet PO 10 mg QPM [facility] Administration Tiotropium [place] 0 gm 09/28/20 07:00 09/30/20 06:49 Tiotropium [place] 4 Gm Inhaler IH 2 puff DAILY-RT [facility] Administration - Exam General Appearance: NAD, awake alert General - other findings: pursed lip breathing Eye: PERRL, anicteric sclera ENT: normocephalic atraumatic, no oropharyngeal lesions Neck: no JVD Heart: RRR, no murmur, no gallops, no rubs Respiratory: CTAB, no rales, no ronchi Respiratory - other findings: mild wheezing heard Gastrointestinal: soft, non-tender, non-distended, normal bowel sounds Extremities: no cyanosis, no clubbing, no edema Skin: normal turgor, no lesions, no rashes Neurological: cranial nerve grossly intact, normal sensation to touch, no weakness Musculoskeletal: normal tone, normal strength, no muscle wasting Hosp A/P - Plan Chest X ray 09/27: patchy bibasilar airspace disease CTA chest: no PE, right basilar consolidation Left venous doppler: no DVT Chest X ray 09/30: early infiltrate right medial base This is a 70 year old female with past medical history of COPD who presented to the hospital with increasing shortness of breath, fatigue and weakness. She was admitted for COVID pneumonia. She tested negative for the flu Acute hypoxic respiratory failure secondary to COVID and COPD exacerbation - CTA showed no PE, right lower lobe pneumonia. Continue ceftriaxone and azithromycin - she is on day 2/4 of remdesivir - continue IV steroids, spiriva and albuterol and mucinex . ABG done today showed no significant hypercapnea Afib witH RVR - started on diltiazem drip Hypomagnesemia - Mag 1.3, given 2 grams of IV magnesium
[2020-09-30] MEDS: Atorvastatin Calcium 40 MG TAB PO SCH (20:35)
[2020-09-30] MEDS: Montelukast Sodium 10 mg Tablet PO SCH (20:35)
[2020-10-01] MEDS: methylPREDNISolone Sod Succ 40 MG VIAL IVP SCH ×4 (03:36→20:10)
[2020-10-01 05:42] LABS: ALT (SGPT) 22 U/L (8-55); AST (SGOT) 20 U/L (5-34); Albumin 3.5 g/dL (3.4-4.8); Alkaline Phosphatase 54 U/L (40-110); Bilirubin, Direct 0.2 mg/dL (0.1-0.3); Bilirubin, Total 0.4 mg/dL (0.2-1.2); Magnesium 2.1 mg/dL (1.6-2.6); Protein, Total 6.4 g/dL (6.0-8.3)
[2020-10-01 05:52] LABS: ALT (SGPT) 23 U/L (8-55); AST (SGOT) 20 U/L (5-34); Albumin 3.5 g/dL (3.4-4.8); Alkaline Phosphatase 53 U/L (40-110); Anion Gap 14 mmol/L (10-20); BUN (Urea Nitrogen) 25 mg/dL (9.8-20.1); Bilirubin, Total 0.4 mg/dL (0.2-1.2); Calc. Creatinine Clearance 129 mL/min (70-130); Calcium 8.4 mg/dL (7.8-10.44); Carbon Dioxide 30 mmol/L (23-31); Chloride 100 mmol/L (98-107); Globulin 2.9 g/dL (2.4-3.5); Glucose 196 mg/dL (80-115); Potassium 4.2 mmol/L (3.5-5.1); Protein, Total 6.4 g/dL (6.0-8.3); Sodium 140 mmol/L (136-145)
[2020-10-01] MEDS: HumaLOG 300 UNITS/3 ML VIAL SC PRN ×3 (05:55→17:34)
[2020-10-01] MEDS: Albuterol 200 PUFF (6.7GM INHALER) INH SCH ×5 (05:57→20:11)
[2020-10-01] MEDS: Mometasone 100 MCG/PUFF (1 INHALER) INH SCH ×2 (06:21→17:33)
[2020-10-01] MEDS: Tiotropium Bromide 4 GM INHALER IH SCH (08:13)
[2020-10-01] MEDS: Carvedilol 6.25 MG TAB PO SCH ×2 (08:14→17:32)
[2020-10-01] MEDS: guaiFENesin ER 600 MG TAB PO SCH ×2 (08:15→20:10)
[2020-10-01] MEDS: Lisinopril 10 MG TAB PO SCH (08:15)
[2020-10-01] MEDS: Famotidine 20 MG TAB PO SCH ×2 (08:15→20:10)
[2020-10-01] MEDS: Aspirin 81 mg Enteric Coated Tablet PO SCH (08:15)
[2020-10-01] MEDS: Enoxaparin Sodium 40 MG/0.4 ML SYRINGE SC SCH ×2 (08:15→20:09)
[2020-10-01] MEDS: clonazePAM 0.5 MG TAB PO SCH ×2 (08:15→20:09)
[2020-10-01] MEDS: REMDESIVIR (EUA) 100 MG in Sodium Chloride 0.9% 250 ML 230 ML IV SCH (08:41)
--- NOTE | 2020-10-01 08:50 | EKG ---
Test Reason : Blood Pressure : / mmHG Vent. Rate : 116 BPM Atrial Rate : 092 BPM P-R Int : 000 ms QRS Dur : 082 ms QT Int : 264 ms P-R-T Axes : 000 030 152 degrees QTc Int : 366 ms Atrial fibrillation with rapid ventricular response Nonspecific ST and T wave abnormality , probably digitalis effect Abnormal ECG When compared with ECG of 28-SEP-2020 02:25, Atrial fibrillation has replaced Sinus rhythm Vent. rate has increased BY 52 BPM Confirmed by JASON BAEZA, SEdwin ([id number]) on 10/01/2020 8:50:18 AM Referred By: [facility] Confirmed By:DR. Rubin GOMEZ MD
[2020-10-01] MEDS ORDERED: Lisinopril 10 MG TAB PO SCH (09:15)
[2020-10-01] MEDS: Diltiazem 125 MG in Sodium Chloride 0.9% 100 ML IVPB SCH (10:03)
[2020-10-01] MEDS: cefTRIAXone\\ROCEPHIN 1 GM in Sodium Chloride 0.9% 100 ML IVPB SCH (13:05)
[2020-10-01] MEDS: Azithromycin 500 MG in Sodium Chloride 0.9% 250 ML 250 ML IVPB SCH (15:08)
--- NOTE | 2020-10-01 16:18 | PDOC.HOSPP ---
- Subjective Encounter Date: 10/01/20 Encounter Time: 12:00 Subjective: F/u: COVID The patient is breathing a bit better today but still short of breath. Her heart rate is controlled on diltiazem drip. She is doing exercises in the bed with physical therapy. She wants to start walking soon - Objective Vital Signs & Weight: Vital Signs (12 hours) Temp Pulse Resp BP BP Pulse Ox 10/01/20 15:37 96 F L 86 24 H 160/106 H 94 L 10/01/20 12:00 96.4 F L 89 22 H 129/87 97 10/01/20 09:58 142/93 H 10/01/20 08:00 96 F L 127 H 28 H 173/110 H 97 Weight Weight 296 lb 4.8 oz I&O: 09/30/20 10/01/20 10/02/20 06:59 06:59 06:59 Intake Total 710 480 Output Total 1500 Balance -790 480 Result Diagrams: 09/30/20 05:17 10/01/20 04:40 Additional Labs: Accuchecks 10/01/20 09/30/20 11:17 16:33 POC Glucose 215 H 172 H Hospitalist ROS - Review of Systems Constitutional: denies: fever, chills - Medication Medications: Active Medications Generic Name Dose Route Start Last Admin Trade Name Freq PRN Reason Stop Dose Admin Albuterol Sulfate 2 puff 09/27/20 18:00 10/01/20 14:53 Albuterol 200 Puff (6.7gm Inhaler) INH 2 puff [id number] [facility]DOMERO Administration Aspirin 81 mg 09/28/20 09:00 10/01/20 08:15 Aspirin 81 Mg Enteric Coated Tablet PO 81 mg DAILY [facility] Administration Atorvastatin Calcium 20 mg 09/27/20 21:00 09/30/20 20:35 Atorvastatin Calcium 40 Mg Tab PO 20 mg HS [facility] Administration Carvedilol 6.25 mg 09/27/20 17:00 10/01/20 08:14 Carvedilol 6.25 Mg Tab PO 6.25 mg BID-WM [facility] Administration Clonazepam 0.5 mg 09/29/20 09:00 10/01/20 08:15 Clonazepam 0.5 Mg Tab PO 0.5 mg BID [facility] Administration Diltiazem HCl 30 mg 10/01/20 11:30 10/01/20 13:05 Diltiazem Hcl 30 Mg Tablet PO 30 mg ACHS [facility] Administration Enoxaparin Sodium 40 mg 09/27/20 21:00 10/01/20 08:15 Enoxaparin Sodium 40 Mg/0.4 Ml Syringe SC 40 mg 0900,2100 [facility] Administration Famotidine 20 mg 09/27/20 21:00 10/01/20 08:15 Famotidine 20 Mg Tab PO 20 mg BID [facility] Administration Guaifenesin 600 mg 09/27/20 21:00 10/01/20 08:15 Guaifenesin Er 600 Mg Tab PO 600 mg Q12HR [facility] Administration Guaifenesin/Dextromethorphan 15 ml 09/27/20 15:23 09/29/20 21:17 Guaifenesin Dm 100-10/5 Ml Udcup PO 15 ml Q4H PRN Administration Cough Ceftriaxone Sodium 1 gm/ 100 mls @ 200 mls/hr 09/28/20 13:00 10/01/20 13:05 Sodium Chloride IVPB 100 mls 1300 [facility] Administration Azithromycin 500 mg/ Sodium 250 mls @ 250 mls/hr 09/28/20 14:00 10/01/20 15:08 Chloride IVPB 250 mls 1400 [facility] Administration Remdesivir 100 mg/ Sodium 250 mls @ 250 mls/hr 09/29/20 09:00 10/01/20 08:41 Chloride IV 10/02/20 09:59 250 mls Q24H [facility] Administration Diltiazem HCl 125 mg/ Sodium 125 mls @ 5 mls/hr 09/30/20 15:00 10/01/20 10:03 Chloride IVPB 125 mls INF [facility] Administration 5 MG/HR Insulin Human Lispro 0 units 09/27/20 15:38 10/01/20 13:04 Humalog 300 Units/3 Ml Vial SC 3 unit .MILD SLIDING SCALE PRN Administration Mild Correctional Scale Lisinopril 10 mg 09/28/20 09:00 10/01/20 08:15 Lisinopril 10 Mg Tab PO 10 mg DAILY [facility] Administration Methylprednisolone Sodium Succinate 40 mg 09/29/20 03:00 10/01/20 14:53 Methylprednisolone Sod Succ 40 Mg Vial IVP 40 mg 0300,0900,1500,2100 [facility] Administration Mometasone Furoate 100 mcg 09/29/20 18:30 10/01/20 06:21 Mometasone 100 Mcg/Puff (1 Inhaler) INH 1 inh BID-RT [facility] Administration Montelukast Sodium 10 mg 09/27/20 21:00 09/30/20 20:35 Montelukast Sodium 10 Mg Tablet PO 10 mg QPM [facility] Administration Tiotropium [place] 0 gm 09/28/20 07:00 10/01/20 08:13 Tiotropium [place] 4 Gm Inhaler IH 2 puff DAILY-RT [facility] Administration - Exam General Appearance: NAD, awake alert Eye: PERRL, anicteric sclera ENT: normocephalic atraumatic, no oropharyngeal lesions Neck: no JVD Heart: RRR, no murmur, no gallops, no rubs Respiratory - other findings: diminished breath sounds at the bases Gastrointestinal: soft, non-tender, non-distended, normal bowel sounds Extremities: no cyanosis, no clubbing, no edema Skin: normal turgor, no lesions, no rashes Neurological: cranial nerve grossly intact, normal sensation to touch, no weakness Hosp A/P - Plan Chest X ray 09/27: patchy bibasilar airspace disease CTA chest: no PE, right basilar consolidation Left venous doppler: no DVT Chest X ray 09/30: early infiltrate right medial base This is a 70 year old female with past medical history of COPD who presented to the hospital with increasing shortness of breath, fatigue and weakness. She was admitted for COVID pneumonia. She tested negative for the flu Acute hypoxic respiratory failure secondary to COVID and COPD exacerbation - CTA showed no PE, right lower lobe pneumonia. Continue ceftriaxone and azithromycin day 4 - she is on day 3/4 of remdesivir - continue IV steroids, spiriva and albuterol and mucinex . SHe is on 4L nasal cannula still Afib witH RVR - started on diltiazem po bid and coreg 6.25 mg bid - attempt to wean off cardizem drip Hypomagnesemia - Mag 1.3, given 2 grams of IV magnesium
[2020-10-01] MEDS ORDERED: Lorazepam 0.5 MG TAB PO PRN (18:18)
[2020-10-01] MEDS ORDERED: DULoxetine 60 MG CAP PO SCH (18:45)
[2020-10-01] MEDS: Atorvastatin Calcium 40 MG TAB PO SCH (20:05)
[2020-10-01] MEDS: Montelukast Sodium 10 mg Tablet PO SCH (20:10)
[2020-10-01] MEDS: Guaifenesin DM 100-10/5 ML UDCUP PO PRN (20:12)
[2020-10-02] MEDS: methylPREDNISolone Sod Succ 40 MG VIAL IVP SCH ×4 (02:36→21:41)
[2020-10-02 05:35] LABS: ALT (SGPT) 23 U/L (8-55); AST (SGOT) 17 U/L (5-34); Albumin 3.6 g/dL (3.4-4.8); Alkaline Phosphatase 57 U/L (40-110); Anion Gap 14 mmol/L (10-20); BUN (Urea Nitrogen) 24 mg/dL (9.8-20.1); Bilirubin, Total 0.6 mg/dL (0.2-1.2); Calc. Creatinine Clearance 118 mL/min (70-130); Calcium 8.6 mg/dL (7.8-10.44); Carbon Dioxide 30 mmol/L (23-31); Chloride 99 mmol/L (98-107); Globulin 3.1 g/dL (2.4-3.5); Glucose 240 mg/dL (80-115); Protein, Total 6.7 g/dL (6.0-8.3); Sodium 139 mmol/L (136-145)
[2020-10-02 05:37] LABS: ALT (SGPT) 23 U/L (8-55); AST (SGOT) 19 U/L (5-34); Albumin 3.6 g/dL (3.4-4.8); Alkaline Phosphatase 56 U/L (40-110); Bilirubin, Direct 0.2 mg/dL (0.1-0.3); Bilirubin, Total 0.5 mg/dL (0.2-1.2); Protein, Total 6.7 g/dL (6.0-8.3)
[2020-10-02] MEDS: HumaLOG 300 UNITS/3 ML VIAL SC PRN ×3 (06:18→16:39)
[2020-10-02] MEDS: Albuterol 200 PUFF (6.7GM INHALER) INH SCH ×5 (06:19→21:41)
[2020-10-02] MEDS: Mometasone 100 MCG/PUFF (1 INHALER) INH SCH ×2 (06:20→17:10)
[2020-10-02] MEDS: Tiotropium Bromide 4 GM INHALER IH SCH (06:20)
[2020-10-02] MEDS: Diltiazem 125 MG in Sodium Chloride 0.9% 100 ML IVPB SCH (07:44)
[2020-10-02] MEDS: DULoxetine 60 MG CAP PO SCH (07:45)
[2020-10-02] MEDS: Lisinopril 10 MG TAB PO SCH (07:45)
[2020-10-02] MEDS: Enoxaparin Sodium 40 MG/0.4 ML SYRINGE SC SCH (07:45)
[2020-10-02] MEDS: Carvedilol 6.25 MG TAB PO SCH ×2 (07:45→15:28)
[2020-10-02] MEDS: guaiFENesin ER 600 MG TAB PO SCH ×2 (07:45→20:02)
[2020-10-02] MEDS: clonazePAM 0.5 MG TAB PO SCH ×2 (07:46→20:02)
[2020-10-02] MEDS: Aspirin 81 mg Enteric Coated Tablet PO SCH (07:46)
[2020-10-02] MEDS: Famotidine 20 MG TAB PO SCH ×2 (07:46→20:02)
[2020-10-02] MEDS: REMDESIVIR (EUA) 100 MG in Sodium Chloride 0.9% 250 ML 230 ML IV SCH (08:59)
--- NOTE | 2020-10-02 14:54 | PDOC.HOSPP ---
- Subjective Encounter Date: 10/02/20 Encounter Time: 13:15 Subjective: sob is better, no chest pain or palp feels better overall - Objective Vital Signs & Weight: Vital Signs (12 hours) Temp Pulse Resp BP BP Pulse Ox 10/02/20 11:26 98.0 F 72 22 H 134/89 94 L 10/02/20 08:00 98.4 F 83 22 H 170/94 H 96 10/02/20 07:45 172/92 H Weight Weight 281 lb 1.6 oz I&O: 10/01/20 10/02/20 10/03/20 06:59 06:59 06:59 Intake Total 710 1320 320 Output Total 1500 2800 450 Balance -790 -1480 -130 Result Diagrams: 09/30/20 05:17 10/02/20 04:42 Additional Labs: Accuchecks 10/02/20 10/01/20 10/01/20 11:06 20:15 16:43 POC Glucose 242 H 207 H 177 H Hospitalist ROS - Medication Medications: Active Medications Generic Name Dose Route Start Last Admin Trade Name Freq PRN Reason Stop Dose Admin Albuterol Sulfate 2 puff 09/27/20 18:00 10/02/20 13:44 Albuterol 200 Puff (6.7gm Inhaler) INH 2 puff [id number] BALDOMERO Administration Aspirin 81 mg 09/28/20 09:00 10/02/20 07:46 Aspirin 81 Mg Enteric Coated Tablet PO 81 mg DAILY BALDOMERO Administration Atorvastatin Calcium 20 mg 09/27/20 21:00 10/01/20 20:05 Atorvastatin Calcium 40 Mg Tab PO 20 mg HS BALDOMERO Administration Carvedilol 6.25 mg 09/27/20 17:00 10/02/20 07:45 Carvedilol 6.25 Mg Tab PO 6.25 mg BID-WM BALDOMERO Administration Clonazepam 0.5 mg 09/29/20 09:00 10/02/20 07:46 Clonazepam 0.5 Mg Tab PO 0.5 mg BID BALDOMERO Administration Duloxetine HCl 60 mg 10/02/20 09:00 10/02/20 07:45 Duloxetine 60 Mg Cap PO 60 mg DAILY BALDOMERO Administration Famotidine 20 mg 09/27/20 21:00 10/02/20 07:46 Famotidine 20 Mg Tab PO 20 mg BID BALDOMERO Administration Guaifenesin 600 mg 09/27/20 21:00 10/02/20 07:45 Guaifenesin Er 600 Mg Tab PO 600 mg Q12HR BALDOMERO Administration Guaifenesin/Dextromethorphan 15 ml 09/27/20 15:23 10/01/20 20:12 Guaifenesin Dm 100-10/5 Ml Udcup PO 15 ml Q4H PRN Administration Cough Insulin Human Lispro 0 units 09/27/20 15:38 10/02/20 11:18 Humalog 300 Units/3 Ml Vial SC 3 unit .MILD SLIDING SCALE PRN Administration Mild Correctional Scale Lisinopril 10 mg 09/28/20 09:00 10/02/20 07:45 Lisinopril 10 Mg Tab PO 10 mg DAILY BALDOMERO Administration Methylprednisolone Sodium Succinate 20 mg 10/02/20 14:00 10/02/20 13:44 Methylprednisolone Sod Succ 40 Mg Vial IVP 20 mg Q8HR BALDOMERO Administration Mometasone Furoate 100 mcg 09/29/20 18:30 10/02/20 06:20 Mometasone 100 Mcg/Puff (1 Inhaler) INH 1 inh BID-RT BALDOMERO Administration Montelukast Sodium 10 mg 09/27/20 21:00 10/01/20 20:10 Montelukast Sodium 10 Mg Tablet PO 10 mg QPM BALDOMERO Administration Tiotropium [place] 0 gm 09/28/20 07:00 10/02/20 06:20 Tiotropium [place] 4 Gm Inhaler IH 2 puff DAILY-RT BALDOMERO Administration - Exam General Appearance: awake alert Eye: PERRL, anicteric sclera ENT: no oropharyngeal lesions, moist mucosa Neck: supple, no JVD Heart: no murmur, irregular Respiratory: no wheezes, rales, rhonchi Gastrointestinal: soft, non-tender, non-distended, normal bowel sounds Extremities: no cyanosis, no edema Neurological: cranial nerve grossly intact, no focal deficits Psychiatric: normal affect, A&O x 3 Hosp A/P (1) Pneumonia due to COVID-19 virus Code(s): U07.1 - COVID-19; J12.89 - OTHER VIRAL PNEUMONIA Status: Acute (2) DM type 2 (diabetes mellitus, type 2) Status: Chronic Qualifiers: Diabetes mellitus 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 (3) Acute on chronic respiratory failure with hypoxia Code(s): J96.21 - ACUTE AND CHRONIC RESPIRATORY FAILURE WITH HYPOXIA Status: Acute (4) COPD exacerbation Code(s): J44.1 - CHRONIC OBSTRUCTIVE PULMONARY DISEASE W (ACUTE) EXACERBATION Status: Resolved (5) Anxiety and depression Code(s): F41.9 - ANXIETY DISORDER, UNSPECIFIED; F32.9 - MAJOR DEPRESSIVE DISORDER, SINGLE EPISODE, UNSPECIFIED Status: Chronic (6) CAD (coronary artery disease) Code(s): I25.10 - ATHSCL HEART DISEASE OF [place] CORONARY ARTERY W/O ANG PCTRS Status: Chronic Qualifiers: Coronary Disease-Associated Artery/Lesion type: [place] artery [place] vs. transplanted heart: [place] heart Associated angina: without angina Qualified Code(s): I25.10 - Atherosclerotic heart disease of [place] coronary artery with out angina pectoris (7) Dyslipidemia Code(s): E78.5 - HYPERLIPIDEMIA, UNSPECIFIED Status: Chronic (8) Hypertension Code(s): I10 - ESSENTIAL (PRIMARY) HYPERTENSION Status: Chronic Qualifiers: Hypertension type: essential hypertension Qualified Code(s): I10 - Essential (primary) hypertension (9) ALEXANDER (obstructive sleep apnea) Code(s): G47.33 - OBSTRUCTIVE SLEEP APNEA (ADULT) (PEDIATRIC) Status: Chronic (10) Physical deconditioning Code(s): R53.81 - OTHER MALAISE Status: Chronic - Plan add cardizem cd 120mg bid and eliquis, dc cardizem drip, continue coreg afib is rate controlled has finished remdesivir full course, is on 4lts [place], steroids, alb inh, singulair, lisinopril, klonopin and cymbalta she lives alone, needs to ambulate more to go home, will need HH with PT for dc plan is at 2 lts home O2, will need to taper from 4 lts for dc plan dc antibiotics
--- NOTE | 2020-10-02 15:20 | RAD ---
Chest AP view INDICATION: History of Covid pneumonia COMPARISON: September 30, 2020 FINDINGS: Lungs: There is persistent airspace opacity in the right lower lobe consistent with pneumonia. Cardiac silhouette: There is stable cardiomegaly and a loop recorder present. Pulmonary vasculature: Normal Pleural spaces: No pleural effusion or pneumothorax is demonstrated. Upper abdomen: No abnormality seen. Osseous structures: No acute osseous abnormality. Additional findings: None. IMPRESSION: Stable right lower lobe pneumonia
[2020-10-02] MEDS: Atorvastatin Calcium 40 MG TAB PO SCH (20:02)
[2020-10-02] MEDS: Apixaban 5 MG TAB PO SCH (20:02)
[2020-10-02] MEDS: Montelukast Sodium 10 mg Tablet PO SCH (20:02)
[2020-10-03] MEDS: HumaLOG 300 UNITS/3 ML VIAL SC PRN ×3 (06:31→16:38)
[2020-10-03] MEDS: Tiotropium Bromide 4 GM INHALER IH SCH (06:32)
[2020-10-03] MEDS: Mometasone 100 MCG/PUFF (1 INHALER) INH SCH ×2 (06:32→21:16)
[2020-10-03] MEDS: Albuterol 200 PUFF (6.7GM INHALER) INH SCH ×5 (06:32→21:18)
[2020-10-03] MEDS: methylPREDNISolone Sod Succ 40 MG VIAL IVP SCH (06:32)
[2020-10-03] MEDS: clonazePAM 0.5 MG TAB PO SCH ×2 (08:55→21:17)
[2020-10-03] MEDS: Apixaban 5 MG TAB PO SCH ×2 (08:56→21:16)
[2020-10-03] MEDS: guaiFENesin ER 600 MG TAB PO SCH ×2 (08:56→21:17)
[2020-10-03] MEDS: Aspirin 81 mg Enteric Coated Tablet PO SCH (08:56)
[2020-10-03] MEDS: DULoxetine 60 MG CAP PO SCH (08:56)
[2020-10-03] MEDS: Lisinopril 10 MG TAB PO SCH (08:56)
[2020-10-03] MEDS: Famotidine 20 MG TAB PO SCH (08:56)
[2020-10-03] MEDS: Carvedilol 6.25 MG TAB PO SCH ×2 (08:56→18:32)
--- NOTE | 2020-10-03 12:38 | PDOC.HOSPP ---
- Subjective Encounter Date: 10/03/20 Encounter Time: 11:30 Subjective: is breathing better this morning, still gets sob even to complete a sentence but better than yesterday no chest pain or palp - Objective Vital Signs & Weight: Vital Signs (12 hours) Temp Pulse Resp BP Pulse Ox 10/03/20 10:45 153/73 H 10/03/20 07:55 97.3 F L 85 22 H 181/113 H 93 L 10/03/20 06:30 140/90 10/03/20 03:55 96.7 F L 93 24 H 181/107 H 95 Weight Weight 281 lb 1.6 oz I&O: 10/02/20 10/03/20 10/04/20 06:59 06:59 06:59 Intake Total 1320 1510 Output Total 2800 1650 Balance -1480 -140 Result Diagrams: 09/30/20 05:17 10/02/20 04:42 Additional Labs: Accuchecks 10/03/20 10/03/20 10/03/20 10:49 06:21 03:55 POC Glucose 244 H 204 H 218 H 10/02/20 10/02/20 21:43 16:10 POC Glucose 231 H 223 H Hospitalist ROS - Medication Medications: Active Medications Generic Name Dose Route Start Last Admin Trade Name Freq PRN Reason Stop Dose Admin Albuterol Sulfate 2 puff 09/27/20 18:00 10/03/20 12:07 Albuterol 200 Puff (6.7gm Inhaler) INH 2 puff [id number] BALDOMERO Administration Apixaban 5 mg 10/02/20 21:00 10/03/20 08:56 Apixaban 5 Mg Tab PO 5 mg BID BALDOMERO Administration Aspirin 81 mg 09/28/20 09:00 10/03/20 08:56 Aspirin 81 Mg Enteric Coated Tablet PO 81 mg DAILY BALDOMERO Administration Atorvastatin Calcium 20 mg 09/27/20 21:00 10/02/20 20:02 Atorvastatin Calcium 40 Mg Tab PO 20 mg HS BALDOMERO Administration Carvedilol 6.25 mg 09/27/20 17:00 10/03/20 08:56 Carvedilol 6.25 Mg Tab PO 6.25 mg BID-WM BALDOMERO Administration Clonazepam 0.5 mg 09/29/20 09:00 10/03/20 08:55 Clonazepam 0.5 Mg Tab PO 0.5 mg BID BALDOMERO Administration Diltiazem HCl 120 mg 10/02/20 21:00 10/03/20 08:55 Diltiazem Cd 120 Mg Cap PO 120 mg BID BALDOMERO Administration Duloxetine HCl 60 mg 10/02/20 09:00 10/03/20 08:56 Duloxetine 60 Mg Cap PO 60 mg DAILY BALDOMERO Administration Famotidine 20 mg 09/27/20 21:00 10/03/20 08:56 Famotidine 20 Mg Tab PO 20 mg BID BALDOMERO Administration Guaifenesin 600 mg 09/27/20 21:00 10/03/20 08:56 Guaifenesin Er 600 Mg Tab PO 600 mg Q12HR BALDOMERO Administration Guaifenesin/Dextromethorphan 15 ml 09/27/20 15:23 10/01/20 20:12 Guaifenesin Dm 100-10/5 Ml Udcup PO 15 ml Q4H PRN Administration Cough Insulin Human Lispro 0 units 09/27/20 15:38 10/03/20 06:31 Humalog 300 Units/3 Ml Vial SC 3 unit .MILD SLIDING SCALE PRN Administration Mild Correctional Scale Insulin Human Lispro 0 units 09/27/20 15:38 10/02/20 21:46 Humalog 300 Units/3 Ml Vial SC 2 unit .BEDTIME SLIDING SC PRN Administration Bedtime Correctional Scale Lisinopril 10 mg 09/28/20 09:00 10/03/20 08:56 Lisinopril 10 Mg Tab PO 10 mg DAILY BALDOMERO Administration Lorazepam 0.5 mg 10/01/20 18:18 10/02/20 15:28 Lorazepam 0.5 Mg Tab PO 0.5 mg Q4H PRN Administration Anxiety Mometasone Furoate 100 mcg 09/29/20 18:30 10/03/20 06:32 Mometasone 100 Mcg/Puff (1 Inhaler) INH 1 inh BID-RT BALDOMERO Administration Montelukast Sodium 10 mg 09/27/20 21:00 10/02/20 20:02 Montelukast Sodium 10 Mg Tablet PO 10 mg QPM BALDOMERO Administration Tiotropium [place] 0 gm 09/28/20 07:00 10/03/20 06:32 Tiotropium [place] 4 Gm Inhaler IH 2 puff DAILY-RT BALDOMERO Administration - Exam General Appearance: awake alert Eye: PERRL, anicteric sclera ENT: no oropharyngeal lesions, moist mucosa Neck: supple, no JVD Heart: RRR, no murmur Respiratory: no wheezes, rales, rhonchi Gastrointestinal: soft, non-tender, non-distended, normal bowel sounds Extremities: no cyanosis, no edema Neurological: cranial nerve grossly intact, no focal deficits Psychiatric: normal affect, A&O x 3 Hosp A/P (1) Pneumonia due to COVID-19 virus Code(s): U07.1 - COVID-19; J12.89 - OTHER VIRAL PNEUMONIA Status: Acute (2) DM type 2 (diabetes mellitus, type 2) Status: Chronic Qualifiers: Diabetes mellitus [facility] insulin use: with terminal manager use (3) Acute on chronic respiratory failure with hypoxia Code(s): J96.21 - ACUTE AND CHRONIC RESPIRATORY FAILURE WITH HYPOXIA Status: Acute (4) COPD exacerbation Code(s): J44.1 - CHRONIC OBSTRUCTIVE PULMONARY DISEASE W (ACUTE) EXACERBATION Status: Resolved (5) Anxiety and depression Code(s): F41.9 - ANXIETY DISORDER, UNSPECIFIED; F32.9 - MAJOR DEPRESSIVE DISORDER, SINGLE EPISODE, UNSPECIFIED Status: Chronic (6) CAD (coronary artery disease) Code(s): I25.10 - ATHSCL HEART DISEASE OF [place] CORONARY ARTERY W/O ANG PCTRS Status: Chronic Qualifiers: Coronary Disease-Associated Artery/Lesion type: [place] artery [place] vs. transplanted heart: [place] heart Associated angina: without angina Qualified Code(s): I25.10 - Atherosclerotic heart disease of [place] coronary artery without angina pectoris (7) Dyslipidemia Code(s): E78.5 - HYPERLIPIDEMIA, UNSPECIFIED Status: Chronic (8) Hypertension Code(s): I10 - ESSENTIAL (PRIMARY) HYPERTENSION Status: Chronic Qualifiers: Hypertension type: essential hypertension Qualified Code(s): I10 - Essential (primary) hypertension (9) ALEXANDER (obstructive sleep apnea) Code(s): G47.33 - OBSTRUCTIVE SLEEP APNEA (ADULT) (PEDIATRIC) Status: Chronic (10) Physical deconditioning Code(s): R53.81 - OTHER MALAISE Status: Chronic - Plan is on cardizem cd 120mg bid, eliquis and coreg afib is rate controlled has finished remdesivir full course, is on 4lts [place], steroids, alb inh, singulair, lisinopril, klonopin and cymbalta she lives alone, needs to ambulate more to go home, will need swing bed/rehab for dc plan, d/w daughter she prefers her going to [facility] encourage oral intake and ambulation is at high risk for worsening with morbid obesity and deconditioning
[2020-10-03] MEDS ORDERED: metFORMIN 500 MG TAB PO SCH (15:00)
[2020-10-03] MEDS: metFORMIN 500 MG TAB PO SCH (18:32)
[2020-10-03] MEDS: Atorvastatin Calcium 40 MG TAB PO SCH (21:16)
[2020-10-03] MEDS: Montelukast Sodium 10 mg Tablet PO SCH (21:17)
[2020-10-04] MEDS: HumaLOG 300 UNITS/3 ML VIAL SC PRN ×2 (05:32→16:47)
[2020-10-04] MEDS: Mometasone 100 MCG/PUFF (1 INHALER) INH SCH ×2 (05:33→18:08)
[2020-10-04] MEDS: Albuterol 200 PUFF (6.7GM INHALER) INH SCH ×5 (05:33→21:45)
[2020-10-04] MEDS: Tiotropium Bromide 4 GM INHALER IH SCH (06:12)
[2020-10-04] MEDS: Apixaban 5 MG TAB PO SCH ×2 (08:51→20:19)
[2020-10-04] MEDS: Aspirin 81 mg Enteric Coated Tablet PO SCH (08:51)
[2020-10-04] MEDS: metFORMIN 500 MG TAB PO SCH ×3 (08:51→16:50)
[2020-10-04] MEDS: DULoxetine 60 MG CAP PO SCH (08:51)
[2020-10-04] MEDS: clonazePAM 0.5 MG TAB PO SCH ×2 (08:51→20:19)
[2020-10-04] MEDS: guaiFENesin ER 600 MG TAB PO SCH ×2 (08:51→20:20)
[2020-10-04] MEDS: Carvedilol 6.25 MG TAB PO SCH ×2 (08:51→16:50)
[2020-10-04] MEDS: predniSONE 20 MG TAB PO SCH (08:51)
[2020-10-04] MEDS: Lisinopril 10 MG TAB PO SCH (08:52)
--- NOTE | 2020-10-04 13:45 | PDOC.HOSPP ---
- Subjective Encounter Date: 10/04/20 Encounter Time: 11:45 Subjective: feels better, is on nasal canula says her home O2 levels is around 3.5 lts/min she ambulates for a total of 100 steps at home/day - Objective Vital Signs & Weight: Vital Signs (12 hours) Temp Pulse Resp BP BP Pulse Ox 10/04/20 11:36 96.6 F L 92 18 127/92 H 96 10/04/20 08:54 97.8 F 84 20 133/91 H 96 10/04/20 08:52 84 133/91 H 10/04/20 08:51 133/91 H 10/04/20 03:56 98.4 F 90 18 146/89 H 97 Weight Weight 281 lb 1.6 oz I&O: 10/03/20 10/04/20 10/05/20 06:59 06:59 06:59 Intake Total 1510 120 Output Total 1650 1200 Balance -140 -1080 Result Diagrams: 09/30/20 05:17 10/02/20 04:42 Additional Labs: Accuchecks 10/04/20 10/04/20 10/03/20 10:38 05:13 21:10 POC Glucose 182 H 174 H 197 H 10/03/20 09/30/20 16:15 20:45 POC Glucose 243 H 167 H Hospitalist ROS - Medication Medications: Active Medications Generic Name Dose Route Start Last Admin Trade Name Freq PRN Reason Stop Dose Admin Albuterol Sulfate 2 puff 09/27/20 18:00 10/04/20 08:53 Albuterol 200 Puff (6.7gm Inhaler) INH 2 puff [id number] BALDOMERO Administration Apixaban 5 mg 10/02/20 21:00 10/04/20 08:51 Apixaban 5 Mg Tab PO 5 mg BID BALDOMERO Administration Aspirin 81 mg 09/28/20 09:00 10/04/20 08:51 Aspirin 81 Mg Enteric Coated Tablet PO 81 mg DAILY BALDOMERO Administration Atorvastatin Calcium 20 mg 09/27/20 21:00 10/03/20 21:16 Atorvastatin Calcium 40 Mg Tab PO 20 mg HS BALDOMERO Administration Carvedilol 6.25 mg 09/27/20 17:00 10/04/20 08:51 Carvedilol 6.25 Mg Tab PO 6.25 mg BID-WM BALDOMERO Administration Clonazepam 0.5 mg 09/29/20 09:00 10/04/20 08:51 Clonazepam 0.5 Mg Tab PO 0.5 mg BID BALDOMERO Administration Diltiazem HCl 120 mg 10/02/20 21:00 10/04/20 08:52 Diltiazem Cd 120 Mg Cap PO 120 mg BID BALDOMERO Administration Duloxetine HCl 60 mg 10/02/20 09:00 10/04/20 08:51 Duloxetine 60 Mg Cap PO 60 mg DAILY BALDOMERO Administration Guaifenesin 600 mg 09/27/20 21:00 10/04/20 08:51 Guaifenesin Er 600 Mg Tab PO 600 mg Q12HR BALDOMERO Administration Guaifenesin/Dextromethorphan 15 ml 09/27/20 15:23 10/01/20 20:12 Guaifenesin Dm 100-10/5 Ml Udcup PO 15 ml Q4H PRN Administration Cough Insulin Human Lispro 0 units 09/27/20 15:38 10/04/20 05:32 Humalog 300 Units/3 Ml Vial SC 2 unit .MILD SLIDING SCALE PRN Administration Mild Correctional Scale Insulin Human Lispro 0 units 09/27/20 15:38 10/02/20 21:46 Humalog 300 Units/3 Ml Vial SC 2 unit .BEDTIME SLIDING SC PRN Administration Bedtime Correctional Scale Lisinopril 10 mg 09/28/20 09:00 10/04/20 08:52 Lisinopril 10 Mg Tab PO 10 mg DAILY BALDOMERO Administration Lorazepam 0.5 mg 10/01/20 18:18 10/02/20 15:28 Lorazepam 0.5 Mg Tab PO 0.5 mg Q4H PRN Administration Anxiety Metformin HCl 500 mg 10/03/20 17:00 10/04/20 11:41 Metformin 500 Mg Tab PO 500 mg TID-WM BALDOMERO Administration Mometasone Furoate 100 mcg 09/29/20 18:30 10/04/20 05:33 Mometasone 100 Mcg/Puff (1 Inhaler) INH 2 inh BID-RT BALDOMERO Administration Montelukast Sodium 10 mg 09/27/20 21:00 10/03/20 21:17 Montelukast Sodium 10 Mg Tablet PO 10 mg QPM BALDOMERO Administration Pantoprazole Sodium 40 mg 10/04/20 09:00 10/04/20 08:51 Pantoprazole 40 Mg Tab PO 40 mg DAILY BALDOMERO Administration Prednisone 20 mg 10/04/20 08:00 10/04/20 08:51 Prednisone 20 Mg Tab PO 20 mg QAM-WM BALDOMERO Administration Tiotropium [place] 0 gm 09/28/20 07:00 10/04/20 06:12 Tiotropium [place] 4 Gm Inhaler IH 2 puff DAILY-RT BALDOMERO Administration - Exam General Appearance: awake alert Eye: PERRL, anicteric sclera ENT: no oropharyngeal lesions, moist mucosa Neck: supple, no JVD Heart: no murmur, irregular Respiratory: no wheezes, rales, rhonchi Gastrointestinal: soft, non-tender, non-distended, normal bowel sounds Extremities: no cyanosis, no edema Neurological: cranial nerve grossly intact, no focal deficits Psychiatric: A&O x 3 Hosp A/P (1) Pneumonia due to COVID-19 virus Code(s): U07.1 - COVID-19; J12.89 - OTHER VIRAL PNEUMONIA Status: Acute (2) DM type 2 (diabetes mellitus, type 2) Status: Chronic Qualifiers: Diabetes mellitus superintendent [employer] insulin use: with superintendent marine [employer] use (3) Acute on chronic respiratory failure with hypoxia Code(s): J96.21 - ACUTE AND CHRONIC RESPIRATORY FAILURE WITH HYPOXIA Status: Acute (4) COPD exacerbation Code(s): J44.1 - CHRONIC OBSTRUCTIVE PULMONARY DISEASE W (ACUTE) EXACERBATION Status: Resolved (5) Anxiety and depression Code(s): F41.9 - ANXIETY DISORDER, UNSPECIFIED; F32.9 - MAJOR DEPRESSIVE DISORDER, SINGLE EPISODE, UNSPECIFIED Status: Chronic (6) CAD (coronary artery disease) Code(s): I25.10 - ATHSCL HEART DISEASE OF [place] CORONARY ARTERY W/O ANG PCTRS Status: Chronic Qualifiers: Coronary Disease-Associated Artery/Lesion type: [place] artery [place] vs. transplanted heart: [place] heart Associated angina: without angina Qualified Code(s): I25.10 - Atherosclerotic heart disease of [place] coronary artery without angina pectoris (7) Dyslipidemia Code(s): E78.5 - HYPERLIPIDEMIA, UNSPECIFIED Status: Chronic (8) Hypertension Code(s): I10 - ESSENTIAL (PRIMARY) HYPERTENSION Status: Chronic Qualifiers: Hypertension type: essential hypertension Qualified Code(s): I10 - Essenti al (primary) hypertension (9) ALEXANDER (obstructive sleep apnea) Code(s): G47.33 - OBSTRUCTIVE SLEEP APNEA (ADULT) (PEDIATRIC) Status: Chronic (10) Physical deconditioning Code(s): R53.81 - OTHER MALAISE Status: Chronic - Plan is on cardizem cd 120mg bid, eliquis and coreg afib is rate controlled has finished remdesivir full course, is on 4lts [place], steroids, alb inh, singulair, lisinopril, klonopin and cymbalta she lives alone, needs to ambulate more to go home, will need swing bed/rehab for dc plan, d/w daughter she prefers her going to [facility] encourage oral intake and ambulation is at high risk for worsening with morbid obesity and deconditioning may dc to rehab if accepted she is almost at her baseline oxygen requirments but needs to mobilize more (took ten steps with PT so far)
[2020-10-04] MEDS: Acetaminophen 325 MG TAB PO PRN ×2 (15:00→20:19)
[2020-10-04] MEDS: Atorvastatin Calcium 40 MG TAB PO SCH (20:19)
[2020-10-04] MEDS: Montelukast Sodium 10 mg Tablet PO SCH (20:19)
[2020-10-05] MEDS: Mometasone 100 MCG/PUFF (1 INHALER) INH SCH (06:05)
[2020-10-05] MEDS: Albuterol 200 PUFF (6.7GM INHALER) INH SCH ×3 (06:05→12:39)
[2020-10-05] MEDS: Tiotropium Bromide 4 GM INHALER IH SCH (06:05)
[2020-10-05] MEDS: predniSONE 20 MG TAB PO SCH (08:05)
[2020-10-05] MEDS: Lisinopril 10 MG TAB PO SCH (08:05)
[2020-10-05] MEDS: Carvedilol 6.25 MG TAB PO SCH (08:06)
[2020-10-05] MEDS: Aspirin 81 mg Enteric Coated Tablet PO SCH (08:06)
[2020-10-05] MEDS: guaiFENesin ER 600 MG TAB PO SCH (08:06)
[2020-10-05] MEDS: DULoxetine 60 MG CAP PO SCH (08:06)
[2020-10-05] MEDS: clonazePAM 0.5 MG TAB PO SCH (08:06)
[2020-10-05] MEDS: Apixaban 5 MG TAB PO SCH (08:07)
[2020-10-05] MEDS: metFORMIN 500 MG TAB PO SCH ×2 (08:07→12:38)
[2020-10-05] MEDS: HYDROcodone/Acetaminophen 5/325 mg Tablet PO PRN ×2 (08:34→12:38)
[2020-10-05 11:48] VITALS: BP 122/72; TEMP 97.6
--- NOTE | 2020-10-05 14:53 | PDOC.HOSPP ---
- Subjective Encounter Date: 10/05/20 Encounter Time: 11:15 Subjective: feels good, says she is ready to get dc'd is on 3 lts nc - Objective Vital Signs & Weight: Vital Signs (12 hours) Temp Pulse Pulse Resp BP BP Pulse Ox 10/05/20 10:55 97.6 F 97 18 122/72 92 L 10/05/20 10:50 62 122/52 L 10/05/20 08:00 97.5 F L 115 H 16 133/85 96 10/05/20 04:15 97.6 F 79 20 134/75 96 Pulse Ox Pulse Ox 10/05/20 10:55 10/05/20 10:50 94 L 92 L 10/05/20 08:00 10/05/20 04:15 Weight Weight 278 lb 14.4 oz I&O: 10/04/20 10/05/20 10/06/20 06:59 06:59 06:59 Intake Total 120 840 Output Total 1200 600 Balance -1080 240 Result Diagrams: 09/30/20 05:17 10/02/20 04:42 Additional Labs: Accuchecks 10/05/20 10/05/20 10/04/20 10:53 05:24 20:21 POC Glucose 188 H 114 H 165 H Hospitalist ROS - Medication Medications: Active Medications Generic Name Dose Route Start Last Admin Trade Name Freq PRN Reason Stop Dose Admin Acetaminophen 650 mg 09/27/20 15:23 10/04/20 20:19 Acetaminophen 325 Mg Tab PO 650 mg Q4H PRN Administration Headache/Fever/Mild Pain (1-3) Hydrocodone Bitart/Acetaminophen 1 tab 09/27/20 15:23 10/05/20 12:38 Hydrocodone/Acetaminophen 5/325 Mg Tablet PO 1 tab Q4H PRN Administration Moderate Pain (4-6) Albuterol Sulfate 2 puff 09/27/20 18:00 10/05/20 12:39 Albuterol 200 Puff (6.7gm Inhaler) INH 2 puff [id number] BALDOMERO Administration Apixaban 5 mg 10/02/20 21:00 10/05/20 08:07 Apixaban 5 Mg Tab PO 5 mg BID BALDOMERO Administration Aspirin 81 mg 09/28/20 09:00 10/05/20 08:06 Aspirin 81 Mg Enteric Coated Tablet PO 81 mg DAILY BALDOMERO Administration Atorvastatin Calcium 20 mg 09/27/20 21:00 10/04/20 20:19 Atorvastatin Calcium 40 Mg Tab PO 20 mg HS BALDOMERO Administration Carvedilol 6.25 mg 09/27/20 17:00 10/05/20 08:06 Carvedilol 6.25 Mg Tab PO 6.25 mg BID-WM BALDOMERO Administration Clonazepam 0.5 mg 09/29/20 09:00 10/05/20 08:06 Clonazepam 0.5 Mg Tab PO 0.5 mg BID BALDOMERO Administration Cyclobenzaprine HCl 10 mg 09/27/20 15:23 10/04/20 21:46 Cyclobenzaprine 10 Mg Tab PO 10 mg Q8HR PRN Administration Muscle Spasm Diltiazem HCl 120 mg 10/02/20 21:00 10/05/20 08:06 Diltiazem Cd 120 Mg Cap PO 120 mg BID BALDOMERO Administration Duloxetine HCl 60 mg 10/02/20 09:00 10/05/20 08:06 Duloxetine 60 Mg Cap PO 60 mg DAILY BALDOMERO Administration Guaifenesin 600 mg 09/27/20 21:00 10/05/20 08:06 Guaifenesin Er 600 Mg Tab PO 600 mg Q12HR BALDOMERO Administration Guaifenesin/Dextromethorphan 15 ml 09/27/20 15:23 10/01/20 20:12 Guaifenesin Dm 100-10/5 Ml Udcup PO 15 ml Q4H PRN Administration Cough Insulin Human Lispro 0 units 09/27/20 15:38 10/04/20 16:47 Humalog 300 Units/3 Ml Vial SC 3 unit .MILD SLIDING SCALE PRN Administration Mild Correctional Scale Insulin Human Lispro 0 units 09/27/20 15:38 10/02/20 21:46 Humalog 300 Units/3 Ml Vial SC 2 unit .BEDTIME SLIDING SC PRN Administration Bedtime Correctional Scale Lisinopril 10 mg 09/28/20 09:00 10/05/20 08:05 Lisinopril 10 Mg Tab PO 10 mg DAILY BALDOMERO Administration Lorazepam 0.5 mg 10/01/20 18:18 10/02/20 15:28 Lorazepam 0.5 Mg Tab PO 0.5 mg Q4H PRN Administration Anxiety Metformin HCl 500 mg 10/03/20 17:00 12/29/20 12:38 Metformin 500 Mg Tab PO 500 mg TID-WM BALDOMERO Administration Mometasone Furoate 100 mcg 09/29/20 18:30 10/05/20 06:05 Mometasone 100 Mcg/Puff (1 Inhaler) INH 1 inh BID-RT BALDOMERO Administration Montelukast Sodium 10 mg 09/27/20 21:00 10/04/20 20:19 Montelukast Sodium 10 Mg Tablet PO 10 mg QPM BALDOMERO Administration Ondansetron HCl 4 mg 09/27/20 15:23 10/04/20 21:46 Ondansetron Odt 4 Mg Tab PO 4 mg Q6H PRN Administration Nausea/Vomiting Pantoprazole Sodium 40 mg 10/04/20 09:00 10/05/20 08:06 Pantoprazole 40 Mg Tab PO 40 mg DAILY BALDOMERO Administration Prednisone 20 mg 10/04/20 08:00 10/05/20 08:05 Prednisone 20 Mg Tab PO 20 mg QAM-WM BALDOMERO Administration Tiotropium [place] 0 gm 09/28/20 07:00 10/05/20 06:05 Tiotropium [place] 4 Gm Inhaler IH 2 puff DAILY-RT BALDOMERO Administration - Exam General Appearance: awake alert Eye: PERRL, anicteric sclera ENT: no oropharyngeal lesions, moist mucosa Neck: supple, no JVD Heart: RRR, no murmur Respiratory: no wheezes, no rales, rhonchi Gastrointestinal: soft, non-tender, non-distended, normal bowel sounds Extremities: no cyanosis, no edema Neurological: cranial nerve grossly intact, no focal deficits Psychiatric: A&O x 3 Hosp A/P (1) Pneumonia due to COVID-19 virus Code(s): U07.1 - COVID-19; J12.89 - OTHER VIRAL PNEUMONIA Status: Acute (2) DM type 2 (diabetes mellitus, type 2) Status: Chronic Qualifiers: Diabetes mellitus retirement insulin use: with retirement use (3) Acute on chronic respiratory failure with hypoxia Code(s): J96.21 - ACUTE AND CHRONIC RESPIRATORY FAILURE WITH HYPOXIA Status: Acute (4) COPD exacerbation Code(s): J44.1 - CHRONIC OBSTRUCTIVE PULMONARY DISEASE W (ACUTE) EXACERBATION Status: Resolved (5) Anxiety and depression Code(s): F41.9 - ANXIETY DISORDER, UNSPECIFIED; F32.9 - MAJOR DEPRESSIVE DISORDER, SINGLE EPISODE, UNSPECIFIED Status: Chronic (6) CAD (coronary artery disease) Code(s): I25.10 - ATHSCL HEART DISEASE OF [place] CORONARY ARTERY W/O ANG PCTRS Status: Chronic Qualifiers: Coronary Disease-Associated Artery/Lesion type: [place] artery [place] vs. transplanted heart: [place] heart Associated angina: without angina Qualified Code(s): I25.10 - Atherosclerotic heart disease of [place] coronary artery without angina pectoris (7) Dyslipidemia Code(s): E78.5 - HYPERLIPIDEMIA, UNSPECIFIED Status: Chronic (8) Hypertension Code(s): I10 - ESSENTIAL (PRIMARY) HYPERTENSION Status: Chronic Qualifiers: Hypertension type: essential hypertension Qualified Code(s): I10 - Essential (primary) hypertension (9) ALEXANDER (obstructive sleep apnea) Code(s): G47.33 - OBSTRUCTIVE SLEEP APNEA (ADULT) (PEDIATRIC) Status: Chronic (10) Physical deconditioning Code(s): R53.81 - OTHER MALAISE Status: Chronic - Plan is on cardizem cd 120mg bid, eliquis and coreg afib is rate controlled has finished remdesivir full course, is on around 3lts [place], steroids, alb inh, singulair, lisinopril, klonopin and cymbalta dc pt to [facility], says she has HH, nursing and PT encourage oral intake and ambulation she is almost at her baseline oxygen requirments but needs to mobilize more (took ten steps with PT so far)
--- NOTE | 2020-10-05 17:55 | DIS ---
DATE OF ADMISSION: 09/27/2020 DATE OF DISCHARGE: 10/05/2020 DISCHARGE DISPOSITION: Home with Home Health. PRIMARY DISCHARGE DIAGNOSES: 1. Coronavirus disease 2019 pneumonia. 2. Acute on chronic respiratory failure with hypoxia. 3. Chronic obstructive pulmonary disease exacerbation. 4. Diabetes mellitus, type 2. 5. Morbid obesity. 6. Anxiety. 7. Depression. 8. Coronary artery disease. 9. Dyslipidemia. 10. Hypertension. 11. Obstructive sleep apnea. 12. Physical deconditioning. PROCEDURES DONE DURING HOSPITALIZATION: CT angio chest done on the day of admission showed no evidence of central or segmental pulmonary embolus, right basilar consolidation, subsegmental atelectasis versus infiltrate. Ultrasound venous Doppler of lower extremity was incomplete, but to the extent seen major veins of left lower extremity did not have DVT. Blood cultures x2, no growth. H and H 12 and 38, platelet count 145, white count of 6, MCV 99, BUN 24, creatinine 0.9 on the 02 of October. BNP 59. COVID-19 PCR was positive on 09/27/2020. Influenza A and B PCR were negative. DISCHARGE MEDICATIONS: 1. Duloxetine 60 mg p.o. daily. 2. Aspirin 81 mg p.o. daily. 3. Flexeril 10 mg p.o. 3 times daily p.r.n. 4. Humalog sliding scale. 5. Klonopin 0.5 mg twice daily. 6. Lisinopril 10 mg p.o. daily. 7. Mucinex 1200 mg twice daily. 8. Albuterol inhaler q.6 hourly p.r.n. 9. Spiriva inhaler 18 mcg inhaler daily. 10. Cardizem CD 120 mg twice daily. 11. Carvedilol 6.25 mg twice daily. 12. DuoNeb 4 times daily p.r.n. 13. Eliquis 5 mg twice daily. 14. Metformin 500 mg p.o. 3 times daily. 15. Humalog sliding scale. 16. Atorvastatin 20 mg p.o. q.h.s. 17. Prednisone 5 mg p.o. daily for another 4 days. 18. Protonix 40 mg p.o. daily. 19. Singulair 10 mg p.o. q.p.m. ALLERGIES: TO LEVAQUIN, PENICILLIN, CEFACLOR, KETOROLAC. DISCHARGE PLAN: The patient to follow up with Dr. Little in 1 week. BRIEF COURSE DURING HOSPITALIZATION: Patient initially got admitted on the 27 of September with complaints of generalized weakness and shortness of breath. The patient normally is on 2-3 L of oxygen at home for chronic COPD. Patient also had history of chronic CHF with diastolic dysfunction in the past. She was morbidly obese with a BMI of 49. In view of multiple underlying comorbid condition with current COVID-19 pneumonia, patient was admitted to the hospital. She was placed on steroids. Ms. Amador also received Remdesivir during her stay here. She has come down on her nasal cannula oxygen requirement from 4.5 L to 3.5 L at the time of discharge. The initial plan was to send her to [facility], but the patient finally declined it at the last moment and she is wanting to go home with her daughter with Home Health and PT. She is hemodynamically stable and is at her baseline respiratory function and functional status. Ms. Amador has been advised to be very active at home in order to avoid further complications from her COVID pneumonia. A total of 35 minutes was spent on discharge plan. Please see a [id number] documentation for the day of discharge on [employer]. All through her stay her daughter was given updates as well. Job ID: [id number]
== END 2020-10-05 17:10 | disposition home or self-care (01) | DRG 177 ==
LOC: ERS 09:57 → ERHOLD 13:27 → 2SW 22:41
PROVIDERS: ADMIT Emergency Medicine; ATTEND Internal Medicine
PROC: 8E0ZXY6 Isolation (ICD-10-PCS; principal; 2020-09-27)
PROC: XW043E5 Introduction of Remdesivir Anti-infective into Central Vein, Percutaneous Approach, New Technology Group 5 (ICD-10-PCS; 2020-09-28)
DX: U07.1 COVID-19 (principal); J12.89 Other viral pneumonia; J96.21 Acute and chronic respiratory failure with hypoxia; J96.22 Acute and chronic respiratory failure with hypercapnia; J44.1 Chronic obstructive pulmonary disease with (acute) exacerbation; J44.0 Chronic obstructive pulmonary disease with (acute) lower respiratory infection; I13.0 Hypertensive heart and chronic kidney disease with heart failure and stage 1 through stage 4 chronic kidney disease, or unspecified chronic kidney disease; I50.42 Chronic combined systolic (congestive) and diastolic (congestive) heart failure; Z68.42 Body mass index [BMI] 45.0-49.9, adult; E66.01 Morbid (severe) obesity due to excess calories; F41.9 Anxiety disorder, unspecified; F32.9 Major depressive disorder, single episode, unspecified; I25.10 Atherosclerotic heart disease of native coronary artery without angina pectoris; E78.5 Hyperlipidemia, unspecified; G47.33 Obstructive sleep apnea (adult) (pediatric); N18.30 Chronic kidney disease, stage 3 unspecified; E11.22 Type 2 diabetes mellitus with diabetic chronic kidney disease; E78.00 Pure hypercholesterolemia, unspecified; D72.810 Lymphocytopenia; E11.65 Type 2 diabetes mellitus with hyperglycemia; I48.91 Unspecified atrial fibrillation; E83.42 Hypomagnesemia; Z90.49 Acquired absence of other specified parts of digestive tract; Z86.73 Personal history of transient ischemic attack (TIA), and cerebral infarction without residual deficits; Z98.51 Tubal ligation status; Z88.0 Allergy status to penicillin; Z88.1 Allergy status to other antibiotic agents; Z88.8 Allergy status to other drugs, medicaments and biological substances; Z79.51 Long term (current) use of inhaled steroids; Z79.82 Long term (current) use of aspirin; Z79.899 Other long term (current) drug therapy; Z99.81 Dependence on supplemental oxygen; Z95.0 Presence of cardiac pacemaker
CPT/HCPCS: 0240U; 36415; 36416; 36600; 71045; 71275; 80048; 80053; 82248; 82553; 82805; 83605; 83735; 83880; 84450; 84460; 84484; 85025; 87040; 93005; 93010; 96365; 96367; 96375; J0456; J0696; J1650; J1815; J2920; J2930; J3490; J7050; J7512; Q0162; Q9967